=== PATIENT | female | born 1995 | race Caucasian/White ===

== ENCOUNTER 2018-10-18 16:22 | Emergency (ER) | payer SELFPAY ==
[2018-10-18 16:28] VITALS: BP 127/86; PULSE 125; RESP 16; TEMP 36.6; O2SAT 99
[2018-10-18 16:51] LABS: Bilirubin Small (Negative); Blood Moderate (Negative); Clarity Sl Cloudy; Glucose Negative (Negative); Ketones 80 mg/dL (Negative); Leukocyte Esterase Negative (Negative); Nitrite Negative (Negative); Specific Gravity >= 1.030 (1.005-1.025); Urobilinogen 0.2 EU/dL (Up TO 0.2); pH 5.5 (5-8)
[2018-10-18 16:59] LABS: Bacteria Moderate HPF (Negative); C & S Indicated? No/Sq. Contamination; Casts Negative LPF (Negative); Crystals Negative HPF (Negative); Epithelial Cells Moderate HPF (Negative); Mucus Trace (Negative); Other Cells Negative (Negative); WBC 0-2 HPF (0-5)
[2018-10-18] MEDS: Ketorolac 30 MG/ML VIAL IVP (17:08)
[2018-10-18] MEDS: Normal Saline 1,000 ML 1000 ML IV ×2 (17:08→18:08)
[2018-10-18] MEDS: Ondansetron 4 MG/2 ML VIAL IVP (17:09)
[2018-10-18 17:15] LABS: Lactate-non-spesis 1.1 mmol/L (0.6-1.4)
[2018-10-18 17:19] LABS: Abs Immature Grans 0.03 k/cumm (0.0-0.09); Absolute Basophil Count 0.02 k/cumm (0.0-0.2); Absolute Lymphocyte Count 1.52 k/cumm (1.2-3.4); Absolute Monocyte Count 0.75 k/cumm (0.11-0.7); Basophils % 0.1; Eosinophils % 0.1; HCT 36.4 % (36.0-46.0); HGB 11.8 g/dL (12.0-15.5); Immature Grans % 0.2; Lymphocytes % 10.1; Mean Corp. HGB Concentration 32.4 g/dL (32.0-36.0); Mean Corpuscular Hemoglobin 23.4 pg (27.0-33.0); Mean Corpuscular Volume 72.2 fL (80-95); Neutrophils % 84.5; Platelet Count 368 x1000/uL (130-400); RBC 5.04 m/cumm (4.00-5.20); RBC Distribution Width 15.6 % (11.7-14.6)
--- NOTE | 2018-10-18 17:34 | ED.GENADUL_ITS ---
Discharge Plan Disposition Patient Disposition: HOME Condition: Good Discharge Details Chief Complaint: Fever Clinical Impression: Gastroenteritis, Vomiting, Dehydration Primary Care Provider: Robert Mancia ED Provider: Son Lindsay Home Meds and New Rx's Prescriptions: New ondansetron HCl [Zofran] 4 mg tablet 4 mg PO TID PRN (Reason: nausea and vomiting) 5 Days Qty: 10 RF: 0 Discharge Instructions Instructions: Dehydration (ED), Gastroenteritis (ED) Additional Instructions: Please drink 8-12 cups of water per day, please take the Zofran as needed for nausea. If you notice any worsening of your symptoms, or any new symptoms such as vomiting, diarrhea, fever, chills, shortness of breath, chest pain, numbness, weakness, or fainting , please return immediately to the emergency department for reevaluation. Please follow up with your primary care provider as soon as possible for reassessment and reevaluation. As always, it was a pleasure participating in your medical care today. Referrals: Robert Mancia [Primary Care Provider] - Medical Decision Making This is a pleasant 23-year-old female who presents for evaluation of fever and other generalized symptoms. She has fever at home, right lower quadrant abdominal pain, sore throat, and vomiting with some diarrhea. She denies any recent antibiotic use or any foreign travel. Patient is tachycardic. She demonstrates notable right lower quadrant tenderness with voluntary guarding, and a positive left-sided Rovsing sign. This may be secondary to cramping from acute viral gastroenteritis, however appendicitis is certainly on the differential. The patient signs and symptoms do appear more clinically consistent with influenza, and we will test for this in spite of her previous vaccination. We will rehydrate the patient, and reassess. 7:33 PM The patient's laboratory workup has returned, she does demonstrate an elevated white count, however lactate is normal, she has no evidence of bandemia. Patient's potassium is slightly low at 3.3, however anion gap is normal, BUN creatinine ratio is normal. Urinalysis shows no evidence of significant urinary tract infection. CT scan was performed and demonstrates evidence of mesenteric adenitis, but no other significant acute abnormality. Patient's heart rate has returned to a normal level, she is afebrile. She has been able to tolerate p.o. very well here with no difficulty. Patient's abdominal discomfort is notably improved, and her nausea has resolved. I feel her signs and symptoms are clinically consistent with a viral enteritis. With no evidence of appendicitis, or other acute abdominal pathology I feel that no further workup is indicated for this especially in conjunction with her resolution of her symptoms. Her potassium has been corrected with IV potassium. The remainder of her laboratory workup is benign. Influenza was negative. test is negative. TSH is also normal as well as her lipase. With her clinical symptomatology consistent with viral gastroenteritis after being rehydrated, having a return of her normal vital signs, otherwise demonstrating the workup showing no significant acute process I feel that she can be safely discharged home with her excellent tolerance of p.o. Discussed red flags which to return, the importance of con tinued hydration, the patient understands. I have extensively reviewed the treatment plan and discharge instructions with the patient. I have addressed all patient concerns at this time. The patient was made aware of what symptoms to monitor for that would warrant a return to the emergency department. Discussed the plan with the patient, they demonstrate verbal understanding and agreement with our assessment and plan at this time. FINDINGS: Lower thorax: No acute findings. ABDOMEN: Liver: Normal. No mass. Gallbladder and bile ducts: Surgical clips in the gallbladder fossa consistent with cholecystectomy. Pancreas: Normal. No ductal dilation. Spleen: Normal. No splenomegaly. Adrenals: Normal. No mass. Kidneys and ureters: Normal. No hydronephrosis. Stomach and bowel: Normal. No obstruction. No mucosal thickening. Appendix: The appendix appears normal. PELVIS: Bladder: Unremarkable as visualized. Reproductive: Unremarkable as visualized. ABDOMEN and PELVIS: Intraperitoneal space: Mild right lower quadrant mesenteric adenitis. Bones/joints: No acute fracture. No dislocation. Soft tissues: The patient may be morbidly obese. Vasculature: Normal. No abdominal aortic aneurysm. Lymph nodes: Numerous right lower quadrant mesenteric lymph nodes consistent with mesenteric adenitis. IMPRESSION: 1. The patient may be morbidly obese. 2. The appendix appears normal. 3. Mild right lower quadrant mesenteric adenitis. Dictated and Authenticated by: Rohit Webb MD. HPI General Date/Time Provider Initiated Documentation: 10/18/18 16:26 . HPI Narrative: This is a 23-year-old female with no significant past medical history who presents today for evaluation of symptoms of illness. 2-3 days she has had chills, fever with a T-max of 103 yesterday, mild sore throat, 3-4 episodes of mild vomiting, occasional diarrhea, myalgias, and notable fatigue. 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 She denies any headache or neck pain. She is clearly coming to contact with multiple sick contacts. She has received her flu shot this year. She has been eating and drinking some, but has had a notably decreased appetite. She denies any modifying or relieving factors. Her fever has been responsive to ibuprofen at home. In addition to the aforementioned symptoms she does note some mild increase in urinary frequency. She also complains of mild right lower quadrant abdominal tenderness. She denies any significant radiation of the symptoms but does also admit to generalized abdominal crampiness. Patient denies any vaginal discharge, or cough. She denies any difficulty swallowing or dysphasia. She has no other complaints at this time. She denies any pertinent family history. She denies any IV or illicit drug use or tobacco use. Related Data Home Medications Medication Instructions Recorded Confirmed ondansetron HCl [Zofran] 4 mg PO TID PRN 5 Days #10 tab 10/18/18 Previous Rx's Medication Instructions Recorded ondansetron HCl [Zofran] 4 mg PO TID PRN 5 Days #10 tab 10/18/18 Allergies Allergy/AdvReac Type Severity Reaction Status Date / Time morphine Allergy Severe Anaphylaxsi Unverified 10/18/18 16:32 s General Stated Complaint: Fever PERCY: 3 Review of Systems Review of Systems All systems reviewed & are unremarkable except as noted in HPI and below PFSH Social History Smoking/Tobacco Use Status: Never Exam Narrative Exam Narrative: 1.Const: Well-nourished, Well-developed, appearing stated age 2.Eyes: PERRL, no conjunctival injection, and symmetrical lids. 3.ENT: Atraumatic external nose and ears. Moist MM. Neck: Symmetric, trachea midline, No thyromegaly. Patient demonstrates good movement of cervical neck. There is no nuchal rigidity, no nuchal tenderness. Patient is able to flex the neck without any difficulty or significant pain. Negative Kernig's and Brudzinski sign. No significant erythema in the posterior oropharynx. No evidence of tonsillar exudates. 4.CVS: +S1/S2, No murmurs or gallops. Peripheral pulses 2+ and equal in all extremities. Brisk capillary refill in all extremities. 5.RESP: Unlabored respiratory effort. Clear to auscultation bilaterally. No wheezes rales or rhonchi 6.GI: Soft, nondistended, mild to moderate right lower quadrant abdominal tenderness, positive Rovsing sign and left lower quadrant. Negative obturator and psoas sign. Negative heel strike test. No organomegaly. 7.MSK: Normocephalic/Atraumatic, Extremities w/o deformity or ttp No cyanosis or clubbing, Normal movement of all extremities 8.Skin: Warm, Dry. No rashes or lesions. 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 Sensation grossly intact, no focal neurologic deficits. 10.Psych: (AAO) x3. Appropriate mood and affect Course Vital Signs Temperature 36.6 C 10/18/18 16:28 Pulse 125 H 10/18/18 16:28 Respiratory Rate 16 10/18/18 16:28 Blood Pressure 127/86 10/18/18 16:28 Pulse Oximetry 99 10/18/18 16:28 Temperature 36.6 C 10/18/18 16:28 Temperature Source Skin 10/18/18 16:28 Pulse 125 H 10/18/18 16:28 Respiratory Rate 16 10/18/18 16:28 Respiratory Effort Non-Labored 10/18/18 16:31 Blood Pressure 127/86 10/18/18 16:28 Pulse Oximetry 99 10/18/18 16:28 Pain Level 9 10/18/18 17:08 Lab/Test Results Lab/Test Results: 10/18/18 17:10 Nasopharynx Influenza Types A,B Antigen - Pending 10/18/18 16:57 Blood Blood Culture - Pending 10/18/18 16:57 Blood Blood Culture - Pending 10/18/18 16:35 Tonsil - Not Specified Streptococcus Screen (ANISHA) - Pending Laboratory Tests Range/Units 10/18/18 10/18/18 10/18/18 16:35 16:58 17:02 Lactate (0.6-1.4) mmol/L 1.1 Urine Color (Yellow) Yellow Cancelled Urine Clarity Sl cloudy Cancelled Urine pH (5-8) 5.5 Cancelled Ur Specific Coy (1.005-1.025) >= 1.030 H Cancelled Urine Protein (Negative) mg/dL Negative Cancelled Urine Ketones (Negative) mg/dL 80 H Cancelled Urine Blood (Negative) Moderate H Cancelled Urine Nitrite (Negative) Negative Cancelled Urine Bilirubin (Negative) Small H Cancelled Urine Urobilinogen (Up TO 0.2) EU/dL 0.2 Cancelled Ur Leukocyte Esterase (Negative) Negative Cancelled Urine RBC (0-2) 5-10 H Urine WBC (0-5) HPF 0-2 Ur Epithelial Cells (Negative) HPF Moderate Urine Crystals (Negative) HPF Negative Urine Bacteria (Negative) HPF Moderate Urine Casts (Negative) LPF Negative Urine Mucus (Negative) Trace Urine Other (Negative) Negative Ur Culture Indicated? No/sq. contamination Urine Glucose (Negative) mg/dL Negative Cancelled POC- Test(urine) Negative POC Strep Test-SAM(Rapid) Start: 10/18/18 16:41 Freq: .Rapid Strep Test Status: Active Protocol: Document 10/18/18 16:45 SF (Rec: 10/18/18 16:45 SF [id number]) Strep test-SAM(Rapid)-POC POC-Strep test-SAM (Rapid) Negative POC-Strep test-SAM (Rapid) Negative
[2018-10-18 17:39] LABS: ALT 27 U/L (12-78); AST 16 U/L (15-37); Albumin 3.2 g/dL (3.4-5.0); Alkaline Phosphatase 89 U/L (46-116); Anion Gap 11.1 mmol/L (3-11); BUN 8 mg/dL (7-18); CO2 24.9 mmol/L (21.0-32.0); CREATININE 0.93 mg/dL (0.55-1.02); Calcium 8.9 mg/dL (8.5-10.1); Chloride 100 mmol/L (98-107); Glucose 83 mg/dL (70-100); Lipase 92 U/L (73-393); Potassium 3.3 mmol/L (3.5-5.1); Sodium 136 mmol/L (136-145); TSH (W/Ref FT4) 1.04 uIU/mL (0.358-3.74); Total Protein 8.3 g/dL (6.4-8.2)
[2018-10-18 17:42] LABS: Absolute Eosinophil Count 0.02 k/cumm (0.0-0.7); Absolute Neutrophil Count 12.68 k/cumm (1.2-6.7); Microcytosis 1+
--- NOTE | 2018-10-18 17:54 | DI.CT_ITS ---
SYMPTOM/DIAGNOSIS: RLQ TENDERNESS, R/O APPE ABDOMINAL, PELVIC CT: 10/18/18 CT examination of the abdomen and pelvis was performed with a bolus infusion of 100 cc Omnipaque 350. Images obtained through the lung bases were unremarkable. Liver, spleen and pancreas appear normal. Gallbladder has been surgically removed. No biliary dilatation seen. Adrenals and kidneys appear normal. No urinary tract calcification or obstruction. Abdominal aorta is of normal diameter and no major vascular abnormalities seen. Appendix appears normal. No evidence of diverticulitis or bowel obstruction. 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 No abdominal or pelvic adenopathy seen. Slight prominence of right lower quadrant mesenteric lymph nodes noted, nonspecific finding but findings could be associated with mesenteric adenitis. CONCLUSION: No evidence of acute intra-abdominal process.
[2018-10-18] MEDS: POTASSIUM CHLORIDE 20 MEQ/100 ML BAG 50 MEQ IVPB (17:59)
[2018-10-18] MEDS: Omnipaque 350 MG/ML 100 ML BTL IJ (17:59)
--- NOTE | 2018-10-18 18:23 | DI.VRAD_ITS ---
EXAM: CT Abdomen and Pelvis With Contrast EXAM DATE/TIME: 10/18/2018 4:59 PM CLINICAL HISTORY: 23 years old, female; Pain; Abdominal pain; Flank; Right lower quadrant (rlq); Patient HX: Rlq tenderness, R/O appendicitis. TECHNIQUE: Axial computed tomography images of the abdomen and pelvis with intravenous contrast. All CT scans at this facility use at least one of these dose optimization techniques: automated exposure control; mA and/or kV adjustment per patient size (includes targeted exams where dose is matched to clinical indication); or iterative reconstruction. Coronal and sagittal reformatted images were created and reviewed. CONTRAST: 100 ml of OMNI-PAQUE 350 administered intravenously. COMPARISON: No relevant prior studies available. FINDINGS: Lower thorax: No acute findings. ABDOMEN: Liver: Normal. No mass. Gallbladder and bile ducts: Surgical clips in the gallbladder fossa consistent with cholecystectomy. Pancreas: Normal. No ductal dilation. Spleen: Normal. No splenomegaly. Adrenals: Normal. No mass. Kidneys and ureters: Normal. No hydronephrosis. Stomach and bowel: Normal. No obstruction. No mucosal thickening. Appendix: The appendix appears normal. PELVIS: Bladder: Unremarkable as visualized. Reproductive: Unremarkable as visualized. ABDOMEN and PELVIS: Intraperitoneal space: Mild right lower quadrant mesenteric adenitis. Bones/joints: No acute fracture. No dislocation. Soft tissues: The patient may be morbidly obese. Vasculature: Normal. No abdominal aortic aneurysm. Lymph nodes: Numerous right lower quadrant mesenteric lymph nodes consistent with mesenteric adenitis. IMPRESSION: 1. The patient may be morbidly obese. 2. The appendix appears normal. 3. Mild right lower quadrant mesenteric adenitis. Dictated and Authenticated by: Rohit Webb MD. Ordering:CLAUDIA Cline MD
== END 2018-10-18 19:55 | disposition home or self-care (01) ==
PROVIDERS: Emergency Provider Student in an Organized Health Care Education/Training Program; PCP Family Medicine
DX: K52.9 Noninfective gastroenteritis and colitis, unspecified (principal); R11.2 Nausea with vomiting, unspecified; E86.0 Dehydration; R50.9 Fever, unspecified; E87.6 Hypokalemia
CPT/HCPCS: 36415; 80053; 81025; 83690; 87040; 87449; 87880; 96361; 96365; 96366; 96375; 99285; 74177; 81003; 81015; 83605; 84443; 85025; 87081; 99284; J1885; J2405; J3480; J3490

== ENCOUNTER 2019-09-17 15:49 | Emergency (ER) | payer SELFPAY ==
[2019-09-17 15:57] VITALS: BP 144/80; PULSE 132; RESP 20; TEMP 36.6; O2SAT 100
--- NOTE | 2019-09-17 16:07 | DI.CT_ITS ---
EXAM: CT ABDOMEN PELVIS W CLINICAL HISTORY: right lower abdomen pain TECHNIQUE: Imaging Protocol: Axial computed tomography images with coronal and sagittal reformatted images were created and reviewed CONTRAST MATERIAL: Intravenous: Omnipaque 350 Contrast volume:100 mL contrast route:IV - Oral: No COMPARISON: CT ABDOMEN PELVIS W from 10/18/2018 FINDINGS: ABDOMEN: Lung Bases: Normal where visualized. Liver: Normal density. No measurable mass. Gallbladder and biliary tract: Status post cholecystectomy. No biliary ductal dilatation. Pancreas: Normal density, no abnormal calcifications or inflammatory process. Spleen: Normal. Kidneys: Normal size, contour and axis. No radiodense stones or obstructive uropathy. No masses seen. Adrenal glands: No masses seen. Abdominal Aorta: Abdominal portion non-dilated. PELVIS: Bladder: Symmetric distention, no gross wall thickening. Bowel: No obstruction or bowel wall thickening. The appendix is normal in size without evidence of ad jacent mesenteric fat stranding or adjacent fluid collection. Peritoneal cavity: No ascites, collection or mesenteric inflammatory response. Bones: Within normal limits. Reproductive organs: Within normal limits. Lymph nodes: Unremarkable. Impression: No evidence of an acute abdomen. DATA REPOSITORY: All CT scans at this facility are submitted to the National Radiology Data Registry (NRDR) Dose Index Registry (DIR) with the [employer] (ACR). RADIATION OPTIMIZATION: All CT scans at this facility use at least one of these dose optimization te chniques: automated exposure control; mA and/or kV adjustment per patient size (includes targeted exa ms where dose is matched to clinical indication); or iterative reconstruction.
--- NOTE | 2019-09-17 16:08 | ED.GENADUL_ITS ---
Discharge Plan Disposition Patient Disposition: HOME Condition: Stable Discharge Details Chief Complaint: Nausea/Vomit/Diar Clinical Impression: Abdominal pain, Nausea & vomiting Primary Care Provider: Malathi Ryan ED Provider: Rohit Almaguer Home Meds and New Rx's Prescriptions: New ondansetron 4 mg tablet,disintegrating 4 mg PO Q8H PRN (Reason: nausea and vomiting) Qty: 20 RF: 0 Continued metformin 500 mg tablet extended release 24hr 500 mg PO BID Qty: 60 RF: 1 hydroxyzine HCl 50 mg tablet 25 - 50 mg PO BID PRN (Reason: acute anxiety) Qty: 20 RF: 0 sertraline 50 mg tablet 50 mg PO DAILY Qty: 30 RF: 0 albuterol sulfate 90 mcg/actuation HFA aerosol inhaler 2 inh IH Q6H PRN (Reason: shortness of breath or wheezing) Qty: 8.5 RF: 0 (DME) Aerochamber MV spacer See Dose Instructions .ROUTE .MEDSUPPLY Qty: 1 RF: 0 ondansetron HCl 4 mg tablet 4 mg PO Q8H PRN (Reason: nausea and vomiting) Qty: 30 RF: 0 Discharge Instructions Instructions: Acute Nausea and Vomiting (ED), Abdominal Pain (ED) Additional Instructions: if you are still having symptoms on Saturday follow up with your primary care provider if you feel more ill, have worsening pain or persistent vomit return to the emergency department Medical Decision Making 24 yo female with hx of pcos comes in with n/v and lower abdominal pain for 4 days. Denies recent travel or abx .Denies fevers and denies drug use other than occasional marijuana use. She has pain with palpation without guarding in the rlq otherwise soft nontender abodmen. Given her symptoms and location of pain will obtain labs and CT to eval for appendicitis among other pathology labs show mild leukocytosis and otherwise no emergent findings. CT also shows no acute findings. She no longer has pain and no tenderness on abd exam. She is tolerating Po so feel she can be d/c'd and have her f/u with pcp and return precautions given Differential Diagnosis Differential Diagnosis: appendicitis, gastroenteritis, diverticulitis Imaging Data Radiologic Study: Attestation: I personally reviewed and interpreted this imaging study as follows: Imaging: CT Scan Radiologist's impression: no acute findings Lab Data Lab results reviewed: Yes I reviewed the patient's lab results. HPI General Mode of arrival: ambulatory . Date/Time Provider Initiated Documentation: 09/17/19 16:01 . Limitations to Documentation: no limitations . Information obtained by: patient . History of Present Illness 24 year old F presents to the emergency department with the chief complaint of abdominal pain, described as moderate, and it has been constant. No relieving factors improve symptom(s), No exacerbating factors reported . Patient did receive the following treatments prior to arrival, none Related Data Home Medications Medication Instructions Recorded Confirmed albuterol sulfate 90 mcg/actuation 2 inh IH Q6H PRN #8.5 gm 02/10/19 09/17/19 aerosol inhaler inhalational spacing device #1 each 02/10/19 08/27/19 ondansetron HCl 4 mg tablet 4 mg PO Q8H PRN #30 tab 06/24/19 09/17/19 hydroxyzine HCl 50 mg tablet 25 - 50 mg PO BID PRN #20 tab 08/21/19 09/17/19 sertraline 50 mg tablet 50 mg PO DAILY #30 tab 08/21/19 09/17/19 metformin 500 mg tablet,extended 500 mg PO BID #60 tab 08/27/19 09/17/19 release 24hr ondansetron 4 mg PO Q8H PRN #20 tab 09/17/19 Previous Rx's Medication Instructions Recorded albuterol sulfate 90 mcg/actuation 2 inh IH Q6H PRN #8.5 gm 02/10/19 aerosol inhaler inhalational spacing device #1 each 02/10/19 ondansetron HCl 4 mg tablet 4 mg PO Q8H PRN #30 tab 06/24/19 hydroxyzine HCl 50 mg tablet 25 - 50 mg PO BID PRN #20 tab 08/21/19 sertraline 50 mg tablet 50 mg PO DAILY #30 tab 08/21/19 metformin 500 mg tablet,extended 500 mg PO BID #60 tab 08/27/19 release 24hr ondansetron 4 mg PO Q8H PRN #20 tab 09/17/19 Allergies Allergy/AdvReac Type Severity Reaction Status Date / Time morphine Allergy Severe Anaphylaxsi Verified 09/17/19 16:01 s Bee Allergy Allergy Swelling Uncoded 09/17/19 16:01 General Stated Complaint: Nausea/Vomit/Diar PERCY: 3 Review of Systems All systems reviewed & are unremarkable except as noted in HPI and below Constitutional Constitutional: Denies chills, Denies fever(s) and Denies weakness Cardiovascular Cardiovascular: Denies chest pain and Denies dyspnea Respiratory Respiratory: Denies dyspnea Musculoskeletal Musculoskeletal: Denies joint swelling Neurologic Neurologic: Denies weakness Psychiatric Psychiatric: Denies depression PFSH Social History Smoking/Tobacco Use Status: Never Alcohol Intake: former Drug use: Never Adopted: No Foster care: No Household members: significant other Housing: apartment Communication Needs: None Education Level: college Details: 1 yr Do you need help understanding health information?: Never 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 [employer] Sexually active: Yes Do you think of yourself as: straight/heterosexual What is your relationship status?: living with partner Panel score (0-1 are the most socially isolated patients): 1 Duration: 45-60 minutes/day Frequency: 3-4 times per week Special jonathon needs: No Seatbelt use: never Helmet use: No Working smoke detector in home: Yes Carbon monox detector in home: Yes Do you feel safe in your relationship?: Yes Female Reproductive History Menstrual control method: none History History 0 Para 0 Hx # Term Pregnancies Multiple births Hx # Pregnancies Ectopic pregnancies AB induced Hx Number of Living Children AB spontaneous Exam Const General: no acute distress Orientation: alert HENMT Head: normal to inspection Ears: external ears normal General nose exam: external nose normal Mouth: moist mucous membranes Eyes General: appearance normal, both eyes and all related structures Neck Neck: normal visual inspection Resp Effort & Inspection: normal respiratory effort and able to speak in complete sentences Cardio Rate: regular rate GI Palpation: soft Skin General skin exam: no rashes or lesions noted Neuro General: alert and oriented x3 Extrem General: normal to inspection Psych Mental Status: mental status grossly normal Course Vital Signs Vital signs: Vital Signs Temperature 36.6 C 09/17/19 15:57 Pulse 132 H 09/17/19 15:57 Respiratory Rate 20 09/17/19 15:57 Blood Pressure 144/80 H 09/17/19 15:57 Pulse Oximetry 100 09/17/19 15:57 Temperature 36.6 C 09/17/19 15:57 Temperature Source Skin 09/17/19 15:57 Pulse 132 H 09/17/19 15:57 Respiratory Rate 20 09/17/19 15:57 Respiratory Effort Non-Labored 09/17/19 15:57 Blood Pressure 144/80 H 09/17/19 15:57 Blood Pressure Position Sitting 09/17/19 15:57 Pulse Oximetry 100 09/17/19 15:57 Oxygen Delivery Method Room Air 09/17/19 15:57 Oxygen Flow Rate 0 09/17/19 15:57 Pain Level 9 09/17/19 15:57
[2019-09-17] MEDS: Ketorolac 15 MG/ML VIAL IVP (16:28)
[2019-09-17] MEDS: Ondansetron 4 MG/2 ML VIAL IVP (16:28)
[2019-09-17] MEDS: Normal Saline 1,000 ML 1000 ML IV (16:28)
[2019-09-17 16:42] LABS: Bilirubin Negative (Negative); Blood Negative (Negative); Clarity Clear (Clear); Glucose Negative (Negative); Ketones 15 mg/dL (Negative); Leukocyte Esterase Negative (Negative); Nitrite Negative (Negative); Specific Gravity >= 1.030 (1.005-1.025); Urobilinogen 0.2 EU/dL (Up TO 0.2); pH 5.5 (5-8)
[2019-09-17 16:44] LABS: Abs Immature Grans 0.03 k/cumm (0.0-0.09); Absolute Basophil Count 0.03 k/cumm (0.0-0.2); Absolute Neutrophil Count 12.69 k/cumm (1.2-6.7); Basophils % 0.2; Eosinophils % 0.5; HCT 38.3 % (36.0-46.0); Immature Grans % 0.2; Lymphocytes % 11.7; Mean Corp. HGB Concentration 31.3 g/dL (32.0-36.0); Mean Corpuscular Hemoglobin 22.4 pg (27.0-33.0); Mean Corpuscular Volume 71.5 fL (80-95); Mean Platelet Volume 9.3 fL (8.0-11.0); Monocytes % 5.5; Neutrophils % 81.9; Platelet Count 500 x1000/uL (130-400); RBC 5.36 m/cumm (4.00-5.20); RBC Distribution Width 16.5 % (11.7-14.6)
[2019-09-17 16:45] LABS: Absolute Eosinophil Count 0.08 k/cumm (0.0-0.7); Absolute Lymphocyte Count 1.81 k/cumm (1.2-3.4); Absolute Monocyte Count 0.85 k/cumm (0.11-0.7)
[2019-09-17 16:58] LABS: ALT 24 U/L (14-59); AST 14 U/L (15-37); Albumin 3.6 g/dL (3.4-5.0); Alkaline Phosphatase 89 U/L (46-116); Anion Gap 10.6 mmol/L (3-11); BUN 7 mg/dL (7-18); Bilirubin, Total 0.8 mg/dL (0.2-1.0); CO2 25.4 mmol/L (21.0-32.0); CREATININE 0.91 mg/dL (0.55-1.02); Chloride 100 mmol/L (98-107); Glucose 88 mg/dL (74-106); Lipase 82 U/L (73-393); Magnesium 1.6 mg/dL (1.8-2.4); Potassium 3.2 mmol/L (3.5-5.1); Sodium 136 mmol/L (136-145); Total Protein 8.8 g/dL (6.4-8.2)
[2019-09-17 17:19] LABS: Anisocytosis 1+; Hypochromasia 1+; Microcytosis 2+; Polychromasia Present
[2019-09-17] MEDS: Omnipaque 350 MG/ML 100 ML BTL IJ (17:25)
[2019-09-17 17:27] VITALS: BP 119/67; PULSE 71; RESP 16; O2SAT 98
--- NOTE | 2019-09-17 17:27 | DI.VRAD_ITS ---
PROCEDURE INFORMATION: Exam: CT Abdomen And Pelvis With Contrast Exam date and time: 09/17/2019 4:47 PM Age: 24 years old Clinical history: Abdominal pain TECHNIQUE: Imaging protocol: Computed tomography of the abdomen and pelvis with intravenous contrast. COMPARISON: CT ABDOMEN PELVIS W 10/18/2018 5:35 PM FINDINGS: Liver: Normal. No mass. Gallbladder and bile ducts: Status post cholecystectomy. Pancreas: Normal. No ductal dilation. Spleen: Normal. No splenomegaly. Adrenals: Normal. No mass. Kidneys and ureters: Normal. No hydronephrosis. Stomach and bowel: Unremarkable. No obstruction. No mucosal thickening. Appendix: The appendix is retrocecal but shows no acute abnormality. Intraperitoneal space: Unremarkable. No free air. No significant fluid collection. Vasculature: Unremarkable. No abdominal aortic aneurysm. Lymph nodes: Unremarkable. No enlarged lymph nodes. Bladder: Unremarkable as visualized. Reproductive: The left ovary is moderately larger than the right. Both ovaries contain multiple small follicles. Bones/joints: Unremarkable. No acute fracture. Soft tissues: Unremarkable. IMPRESSION: 1. No etiology of the patient's pain is demonstrated. 2. Status post cholecystectomy Dictated and Authenticated by: Rohit Woods MD. Ordering:JESUS Bee MD
[2019-09-17 17:54] VITALS: BP 133/76; PULSE 105; RESP 14; TEMP 37; O2SAT 100
--- NOTE | 2019-09-18 09:07 | W.ED.FU ---
cbc reviewed by pathologist and possible thallessemia. Reached out to pt's pcp office to make them aware and will f/u with her
== END 2019-09-17 17:53 | disposition home or self-care (01) ==
PROVIDERS: Emergency Provider Emergency Medicine; PCP Nurse Practitioner Adult Health
DX: R11.2 Nausea with vomiting, unspecified (principal); R10.31 Right lower quadrant pain; D72.829 Elevated white blood cell count, unspecified
CPT/HCPCS: 80053; 81025; 83690; 96361; 96374; 96375; 99285; 74177; 81003; 83735; 85025; 99284; J1885; J2405; J3490

== ENCOUNTER 2020-02-04 08:37 | Outpatient (CLI) | payer OTHER, SELFPAY ==
[2020-02-08 09:47] LABS: COVID-19 RT-PCR Result Negative (Negative)
== END 2020-02-04 08:57 ==
PROVIDERS: PCP Nurse Practitioner Adult Health; Visit Provider Nurse Practitioner Adult Health
DX: R50.9 Fever, unspecified (principal); R53.81 Other malaise
CPT/HCPCS: U0003

== ENCOUNTER 2020-07-06 12:27 | Emergency (ER) | payer OTHER, SELFPAY ==
[2020-07-06] VITALS (12 sets, daily range): BP systolic 112–151; BP diastolic 63–106; PULSE 55–76; RESP 13–28; TEMP 36.1–37; O2SAT 98–100
[2020-07-06] MEDS: Normal Saline 1,000 ML 1000 ML IV ×2 (12:45→13:45)
[2020-07-06] MEDS: Normal Saline Flush 10 ML SYR IVP (12:45)
--- NOTE | 2020-07-06 12:45 | RT.EKG_ITS ---
APPROVED REPORT Exam: Resting ECG Patient Location: E HR:63 bpm ECG Measurements Heart Rate 63 AXIS VA 161 P -2 QRSd 87 QRS 42 QT 401 T 20 QTc 410 Conclusion Sinus rhythm...normal P axis, V-rate 60- 99, no st elevation, J pt elev I, AvL
[2020-07-06 12:48] LABS: Abs Immature Grans 0.04 10^3/uL (0.0-0.06); Absolute Basophil Count 0.04 10^3/uL (0.0-0.2); Absolute Eosinophil Count 0.04 10^3/uL (0.0-0.7); Absolute Lymphocyte Count 2.89 10^3/uL (1.2-3.4); Absolute Monocyte Count 0.45 10^3/uL (0.1-0.8); Absolute Neutrophil Count 7.33 10^3/uL (1.2-6.7); Basophils % 0.4; Eosinophils % 0.4; HCT 40.9 % (36.0-46.0); HGB 12.8 g/dL (11.2-15.7); Immature Grans % 0.4; Lymphocytes % 26.8; MCH 22.5 pg (27.0-33.0); MCHC 31.3 % (32.0-36.0); MCV 71.9 fL (80-95); MPV 9.3 fL (8.0-11.0); Monocytes % 4.2; Neutrophils % 67.8; Nucleated RBC 0 %; Platelet Count 544 10^3/uL (130-400); RBC 5.69 10^6/uL (3.93-5.22); RDW 15.1 % (11.7-14.6); RDW-SD 38.5 fL; WBC 10.79 10^3/uL (4.4-10.8)
[2020-07-06 12:49] LABS: Bilirubin Negative (Negative); Blood Trace-intact (Negative); Clarity Clear (Clear); Glucose Negative (Negative); Ketones 15 mg/dL (Negative); Leukocyte Esterase Negative (Negative); Nitrite Negative (Negative); Specific Gravity >= 1.030 (1.005-1.025); Urobilinogen 0.2 EU/dL (Up TO 0.2)
--- NOTE | 2020-07-06 12:54 | ED.GENADUL_ITS ---
Discharge Plan Disposition Patient Disposition: HOME Condition: Improving Discharge Details Chief Complaint: Abd Prob Clinical Impression: Gastritis, Headache Primary Care Provider: Malathi Diaz ED Provider: José Stoddard Home Meds and New Rx's Prescriptions: New famotidine 20 mg tablet 20 mg PO BID 14 Days Qty: 28 RF: 0 Continued ondansetron 4 mg tablet,disintegrating 4 mg PO Q8H PRN (Reason: nausea and vomiting) Qty: 20 RF: 0 naproxen 500 mg tablet 500 mg PO BID PRN (Reason: pain) Qty: 30 RF: 0 clindamycin phosphate 1 % solution 1 applic TP BID PRN (Reason: HS) Qty: 60 RF: 1 sertraline 50 mg tablet 50 mg PO DAILY Qty: 30 RF: 1 albuterol sulfate 90 mcg/actuation HFA aerosol inhaler 2 inh IH Q6H PRN (Reason: shortness of breath or wheezing) Qty: 8.5 RF: 0 (DME) Aerochamber MV spacer See Dose Instructions .ROUTE .MEDSUPPLY Qty: 1 RF: 0 Discharge Instructions Instructions: Gastritis (ED) Additional Instructions: Please take famotidine as prescribed twice daily for 2 weeks time. Please make an appointment to follow-up with Malathi Diaz in clinic in 2 weeks time. Avoid fatty, fried, spicy or acidic/tomato-based foods. Rest today. May continue your regularly prescribed medications including Zofran as needed. Return to the ER if you develop a fever, persistent vomiting, or any other acute concerns. Medical Decision Making This is a 25-year-old female presents from her primary care physician's office. She was initially evaluated for 5 days of epigastric pain associated intermittent episodes of vomiting. She denied fever or chills. No known sick contacts or travel. She has had a cholecystectomy. She arrives to the ER mildly anxious, afebrile, with an exam that reveals epigastric tenderness without significant rebound. Differential diagnosis includes gastritis, pancreatitis, dehydration or electrolyte abnormality. She w ill also note some intermittent headaches that feel like migraine but no history of same. Patient given GI cocktail and antiemetic, fluid bolus. She is referred for laboratory testing, CT scan of the head and urinalysis. UA reveals dehydration with elevated specific gravity. Labs: White blood cell count of 10, hematocrit 40, platelets 544. Sodium 138, potassium 3.6, chloride 102, bicarb 21, BUN 12, creatinine 1.0. LFTs unremarkable, troponin negative, lipase 68. CT scan of the head without acute intracranial findings. Patient's nausea improved following administration of the GI cocktail as well as Protonix. She will endorsed significant stress in her life and I do feel that today is most consistent with stress induced gastritis. She also complained of more study frontal headache and was given acetaminophen and Phenergan; she was able to rest and then awoke with significant reduction of headache. She is stable and appropriate outpatient management. I will place her on a course of famotidine for 2 weeks. HPI General Mode of arrival: ambulatory . Date/Time Provider Initiated Documentation: 07/06/20 12:28 . Limitations to Documentation: no limitations . Information obtained by: patient . History of Present Illness 25 year old F presents to the emergency department with the chief complaint of Epigastric pain for 5 days, described as moderate, Quality is described as dull and constant, and is localized to the abdomen. Patient reports no radiation. Patient started experiencing this hour(s) and it has been constant. Rest improves symptom(s), Eating worsens symptoms . Patient notes nausea/vomiting; denies fever/chills. Patient did receive the following treatments prior to arrival, none Related Data Home Medications Medication Instructions Recorded Confirmed albuterol sulfate 90 mcg/actuation 2 inh IH Q6H PRN #8.5 gm 02/10/19 07/06/20 aerosol inhaler inhalational spacing device #1 each 02/10/19 07/06/20 ondansetron 4 mg disintegrating 4 mg PO Q8H PRN #20 tab 02/03/20 07/06/20 tablet clindamycin phosphate 1 % topical 1 applic TP BID PRN #60 ml 04/27/20 07/06/20 solution naproxen 500 mg tablet 500 mg PO BID PRN #30 tab 04/27/20 07/06/20 famotidine 20 mg PO BID 14 Days #28 tab 07/06/20 sertraline 50 mg tablet 50 mg PO DAILY #30 tab 07/06/20 07/06/20 Previous Rx's Medication Instructions Recorded albuterol sulfate 90 mcg/actuation 2 inh IH Q6H PRN #8.5 gm 02/10/19 aerosol inhaler inhalational spacing device #1 each 02/10/19 ondansetron 4 mg disintegrating 4 mg PO Q8H PRN #20 tab 02/03/20 tablet clindamycin phosphate 1 % topical 1 applic TP BID PRN #60 ml 04/27/20 solution naproxen 500 mg tablet 500 mg PO BID PRN #30 tab 04/27/20 famotidine 20 mg PO BID 14 Days #28 tab 07/06/20 sertraline 50 mg tablet 50 mg PO DAILY #30 tab 07/06/20 Allergies Allergy/AdvReac Type Severity Reaction Status Date / Time morphine Allergy Severe Anaphylaxsi Verified 07/06/20 12:37 s Bee Allergy Allergy Swelling Uncoded 07/06/20 12:37 General Stated Complaint: Abd Prob PERCY: 3 Review of Systems Narrative: Some improvement with marijuana. Denies heavy use. No bloating. Positive flatus and feels constipated. Mild headache intermittently. 8 systems reviewed and otherwise negative [facility] Medical History Anxiety (Chronic) Depression (Chronic) h/o Wellbutrin use, h/o prozac use; no bipolar Exercise-induced asthma (Chronic) Family history of early CAD (Chronic) Father H/O fracture of wrist (Resolved) Right, colles fracture at 15yo History of hidradenitis suppurativa (Resolved) B/L; Dr. Garfield Wilson Surgeon; avoids shaving PCOS (polycystic ovarian syndrome) (Chronic) Dx'ed [facility] 01/2019 Metformin started Surgical History H/O oral surgery (Inactive) Hx of cholecystectomy (Resolved ~08/2014) ~2013 Family History Father Heart attack 37yo High cholesterol Arthritis b/l hip replacement in early 30s Mother Hypertension Anxiety Depression Diabetes Irritable bowel syndrome Paternal Grandfather High cholesterol Maternal Grandfather Diabetes Maternal Aunt Breast cancer 2 great aunts Crohn's disease Brother Aortic stenosis 17yo Social History Smoking/Tobacco Use Status: Never Alcohol Intake: former Drug use: Never Adopted: No Foster care: No Household members: significant other Housing: apartment Communication Needs: None Education Level: college Details: 1 yr Do you need help understanding health information?: Never 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[employer] Sexually active: Yes Do you think of yourself as: straight/heterosexual What is your relationship status?: living with partner Panel score (0-1 are the most socially isolated patients): 1 Duration: 45-60 minutes/day Frequency: 3-4 times per week Special jonathon needs: No Seatbelt use: never Helmet use: No Working smoke detector in home: Yes Carbon monox detector in home: Yes Do you feel safe at home: Yes Do you feel safe in your relationship?: Yes Female Reproductive History Menstrual control method: none History History 0 Para 0 Hx # Term Pregnancies Multiple births Hx # Pregnancies Ectopic pregnancies AB induced Hx Number of Living Children AB spontaneous Exam Narrative Exam Narrative: GEN: awake, alert, oriented 3. Pleasant, well groomed, interactive. HEAD: Normocephalic, atraumatic ENT: Mucous membranes moist, External ear exam unremarkable EYES: PERRL, EOMI NECK: Full ROM, no JOELLEN, no menigismus CHEST/RESP: Nontender, clear to auscultation bilateral, no wheeze/rhonchi/rales CARDIOVASCULAR: RRR, no murmur, rub pepe. 2+ Rad pulse bilateral ABDOMEN: Soft, epigastric tenderness without rebound or guarding, no mass. +Bowel sounds EXT: Full ROM, no edema, no rash Neuro: Grossly normal neurologic exam, conversant, interactive. Psych: Speech fluent, thoughts congruent, affect anxious Course Vital Signs Vital signs: Vital Signs Temperature 36.7 C 07/06/20 12:30 Pulse 76 07/06/20 12:30 Respiratory Rate 28 H 07/06/20 12:30 Blood Pressure 141/77 H 07/06/20 12:30 Pulse Oximetry 99 07/06/20 12:30 Temperature 36.7 C 07/06/20 12:30 Temperature Source Temporal Artery Scan 07/06/20 12:30 Pulse 76 07/06/20 12:30 Respiratory Rate 28 H 07/06/20 12:30 Respiratory Effort 07/06/20 12:35 Blood Pressure 141/77 H 07/06/20 12:30 Blood Pressure Position Sitting 07/06/20 12:30 Pulse Oximetry 99 07/06/20 12:30 Oxygen Delivery Method Room Air 07/06/20 12:30 Oxygen Flow Rate 0 07/06/20 12:30 Pain Level 8 07/06/20 12:30 Lab/Test Results Lab/Test Results: Laboratory Tests Range/Units 07/06/20 12:45 Urine Color (Yellow) Yellow Urine Clarity (Clear) Clear Urine pH (5-8) 6.0 Ur Specific [place] (1.005-1.025) >= 1.030 H Urine Protein (Negative) mg/dL Negative Urine Ketones (Negative) mg/dL 15 H Urine Blood (Negative) Trace-intact H Urine Nitrite (Negative) Negative Urine Bilirubin (Negative) Negative Urine Urobilinogen (Up TO 0.2) EU/dL 0.2 Ur Leukocyte Esterase (Negative) Negative Urine Glucose (Negative) mg/dL Negative POC- Test(urine) Negative
[2020-07-06 12:56] LABS: Lipase 68 U/L (73-393); Magnesium 1.8 mg/dL (1.8-2.4)
[2020-07-06 13:00] LABS: RBC 0-2 HPF (0-2)
[2020-07-06] MEDS: Ondansetron 4 MG/2 ML VIAL IVP (13:00)
[2020-07-06 13:01] LABS: C & S Indicated? No/Sq. Contamination; Epithelial Cells Many HPF (Negative); Mucus Moderate (Negative)
[2020-07-06 13:02] LABS: ALT 28 U/L (14-59); AST 18 U/L (15-37); Albumin 3.8 g/dL (3.4-5.0); Alkaline Phosphatase 86 U/L (46-116); Anion Gap 14.2 mmol/L (3-11); BUN 12 mg/dL (7-18); Bilirubin, Total 0.7 mg/dL (0.2-1.0); CO2 21.8 mmol/L (21.0-32.0); Calcium 9.8 mg/dL (8.5-10.1); Chloride 102 mmol/L (98-107); Glucose 96 mg/dL (74-106); Potassium 3.6 mmol/L (3.5-5.1); Sodium 138 mmol/L (136-145); Total Protein 8.5 g/dL (6.4-8.2)
--- NOTE | 2020-07-06 13:15 | DI.CT_ITS ---
EXAM: CT HEAD WO CLINICAL HISTORY: intermittent heache, nausea. TECHNIQUE: Imaging Protocol: Axial computed tomography images with coronal and sagittal reformatted images were created and reviewed COMPARISON: No exams were available for comparison FINDINGS: Ventricles and Extra axial spaces: Normal in size and morphology for the patient's age. Hemorrhage: None. Cerebral parenchyma: Normal. Midline shift: None. Brainstem/Cerebellum: Normal. Calvarium: Normal. Visualized Paranasal sinuses/Mastoids: Clear. Soft Tissues: Unremarkable. IMPRESSION: No acute intracranial process. RADIATION DOSE DELIVERED: Total DLP DATA REPOSITORY: All CT scans at this facility are submitted to the National Radiology Data Registry (NRDR) Dose Index Registry (DIR) with the [employer] (ACR). RADIATION OPTIMIZATION: All CT scans at this facility use at least one of these dose optimization te chniques: automated exposure control; mA and/or kV adjustment per patient size (includes targeted exa ms where dose is matched to clinical indication); or iterative reconstruction.
[2020-07-06 13:17] LABS: Anisocytosis 1+; Diff Comment RBC Morph Reviewed; Microcytosis 2+; Polychromasia Present; Troponin I < 0.05 ng/mL (<0.06)
[2020-07-06 13:18] LABS: Poikilocytes 1+
[2020-07-06] MEDS: Pantoprazole 40 MG VIAL IVP (13:45)
[2020-07-06] MEDS: ACETAMINOPHEN 1,000 MG/100 ML BTL 400 MG IVPB (14:49)
== END 2020-07-06 17:35 | disposition home or self-care (01) ==
PROVIDERS: Emergency Provider Emergency Medicine; PCP Nurse Practitioner Adult Health
DX: K29.60 Other gastritis without bleeding (principal); R51 Headache; E86.0 Dehydration
CPT/HCPCS: 80053; 81025; 83690; 93005; 96361; 96365; 96375; 99284; 70450; 81003; 81015; 83735; 84484; 85025; 93010; J0131; J2405

== ENCOUNTER → 2020-10-27 19:52 | Outpatient (REF) | payer SELFPAY ==
[2020-10-27 17:59] LABS: Abs Immature Grans 0.01 10^3/uL (0.0-0.06); Absolute Basophil Count 0.03 10^3/uL (0.0-0.2); Absolute Lymphocyte Count 2.39 10^3/uL (1.2-3.4); Absolute Monocyte Count 0.54 10^3/uL (0.1-0.8); Absolute Neutrophil Count 5.36 10^3/uL (1.2-6.7); Basophils % 0.4; Eosinophils % 1.2; HGB 11.4 g/dL (11.2-15.7); Immature Grans % 0.1; Lymphocytes % 28.4; MCH 22.4 pg (27.0-33.0); MCV 74.7 fL (80-95); MPV 9.5 fL (8.0-11.0); Monocytes % 6.4; Neutrophils % 63.5; Nucleated RBC 0 %; Platelet Count 495 10^3/uL (130-400); RBC 5.09 10^6/uL (3.93-5.22); RDW-SD 40.4 fL; WBC 8.43 10^3/uL (4.4-10.8)
[2020-10-27 18:19] LABS: ALT 26 U/L (14-59); AST 17 U/L (15-37); Albumin 3.6 g/dL (3.4-5.0); Alkaline Phosphatase 90 U/L (46-116); Amylase 20 U/L (25-115); Anion Gap 9.7 mmol/L (3-11); BUN 10 mg/dL (7-18); Bilirubin, Total 0.5 mg/dL (0.2-1.0); C-Reactive Protein 4.67 mg/dL (0.0-0.3); CO2 26.3 mmol/L (21.0-32.0); CREATININE 0.93 mg/dL (0.55-1.02); Calcium 9.1 mg/dL (8.5-10.1); Chloride 105 mmol/L (98-107); Glucose 85 mg/dL (74-106); Lipase 81 U/L (73-393); Potassium 3.9 mmol/L (3.5-5.1); Sodium 141 mmol/L (136-145); TSH (W/Ref FT4) 0.99 uIU/mL (0.36-3.74); Total Protein 7.4 g/dL (6.4-8.2)
[2020-10-27 19:22] LABS: ESR 18 mm/hr (0-20)
[2020-10-27 19:25] LABS: Bilirubin Negative (Negative); Blood Moderate (Negative); Clarity Turbid (Clear); Glucose Negative (Negative); Ketones Trace mg/dL (Negative); Leukocyte Esterase Negative (Negative); Nitrite Negative (Negative); Specific Gravity >= 1.030 (1.005-1.025); Urobilinogen 0.2 EU/dL (Up TO 0.2)
[2020-10-27 19:33] LABS: C & S Indicated? No; Crystals Many Amorphous HPF (Negative)
== END ==
LOC: NCHCN 19:52
PROVIDERS: Visit Provider Nurse Practitioner Family
DX: K92.0 Hematemesis (principal); K92.1 Melena; R10.84 Generalized abdominal pain
CPT/HCPCS: 80053; 83690; 85652; 81003; 81015; 82150; 84443; 85025; 86140

== ENCOUNTER 2020-11-18 01:37 | Outpatient (CLI) | payer OTHER, SELFPAY ==
[2020-11-20 10:30] LABS: COVID-19 RT-PCR Result NEGATIVE (Negative)
== END 2020-11-18 01:57 ==
PROVIDERS: Surgery; PCP Nurse Practitioner Family; Visit Provider Surgery
DX: Z11.52 Encounter for screening for COVID-19 (principal); Z01.818 Encounter for other preprocedural examination
CPT/HCPCS: U0003

== ENCOUNTER 2020-11-18 01:38 | Outpatient (CLI) | payer OTHER, SELFPAY ==
[2020-11-21 13:25] LABS: IgA 235 mg/dL (85-499); Interpretation (See Note); Tissue Transglutaminase IgA <1.2 U/mL (<4.0)
== END 2020-11-18 01:58 ==
PROVIDERS: PCP Nurse Practitioner Family; Visit Provider Surgery
DX: R11.2 Nausea with vomiting, unspecified (principal); R19.7 Diarrhea, unspecified
CPT/HCPCS: 36415; 82784; 83516; 82175; 82300; 83655; 83825

== ENCOUNTER 2020-11-21 09:11 | Day surgery (SDC) | payer OTHER, SELFPAY ==
--- NOTE | 2020-11-21 07:17 | W.PM.ENDDOP ---
Date of service: 11/21/20 Time of Service: 10:42 Endoscopy Report DATE OF PROCEDURE: 11/21/20 PRE-OP DIAGNOSIS: Nausea and Vomiting PROCEDURE: 1. EGD with biopsies 2. Colonoscopy with biopsies SURGEON: France Zendejas ANESTHESIA: other (General/ASA 2/Stacey Houston, YOSSI) ESTIMATED BLOOD LOSS: 3 PATHOLOGY: other (duodenum bx, gastric bx, Ge junction bx, terminal ileum bx, randome colon bx) COMPLICATIONS: None DISPOSITION: same day INDICATIONS: Ms. Mcclendon is a 25-year-old female who has been having GI symptoms which started in November but then worsened in February and March. She has daily nausea with intermittent vomiting. She has to take Zofran almost every morning. She can have up to 10 bowel movements a day when her diarrhea is as a's worst. She has tried a gluten-free diet for 2 weeks which did not help. She tried removing lactose for a couple of weeks which did not help. She did see Dr. Mckay in [place] but because she has [employer] insurance it would not cover a colonoscopy or upper endoscopy in [place]. Dr. Mckay recommended ordering some labs. She has had some of those done. She has not had any of the stool studies done yet. Her TSH, and CBC were essentially normal except for a slightly elevated platelet count. Her CMP was normal. She did have an increased CRP in September of more than 4. We discussed the differential for nausea vomiting diarrhea and abdominal pain. This could be due to peptic ulcer disease, gastritis, hyperemesis cannabis syndrome. Her diarrhea could be infectious versus malabsorptive or due to inflammatory bowel disease. Recommendations: 1. Will order stool cultures for ova and parasite, Giardia, and lactoferrin. 2. We will order a celiac disease panel as well as a heavy metal blood screen. 3. We will schedule for an upper endoscopy and colonoscopy. The colonoscopy procedure as well as the EGD procedure were both explained to the patient. We also discussed Covid testing and quarantine requirements. 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 At this point she has no vacation days left. I did discuss the case with anesthesia as well as Peter in the OR. We will get a Covid test at 1:00 the Saturday prior to her procedure. That way hopefully she will lose as much time from work. If her test result is not back by Saturday we will go ahead and do the colonoscopy and upper endoscopy with the appropriate PPE. The case is urgent due to her weight loss and length of her symptoms. Risks, benefits and complications have been reviewed. Complications include but are not limited to bleeding, pain, perforation, sore throat, aspiration, and adverse reaction to the medications. Questions were entertained and answered to their satisfaction and they wished to proceed. No guarantees were given or implied. Risks, benefits and complications have been reviewed. Complications include but are not limited to bleeding, pain, perforation, missed small lesion/polyp, sore throat, aspiration and adverse reaction to the medications. Questions were entertained and answered to their satisfaction and they wished to proceed. No guarantees were given or implied. COVID-19 testing explained to the patient. Reason for test reviewed. Quarantine per state requirements reviewed with patient. Patient understands and agrees to testing. PREP: Miralax/Dulcolax PROCEDURE START TIME: 10:42 PROCEDURE END TIME: 11:19 COLONOSCOPY RETRACTION TIME: 20 minutes FINDINGS: Mild inflammation of the esophagus and stomach. Normal large bowel PROCEDURE DESCRIPTION: After informed consent was obtained the patient was take to the procedure room and placed in a supine position. Monitors were applied and a time out was done. The patients name, date of , procedure type, allergies to medications and metal in their body was reviewed. A bite block was placed and the patient was sedated. Once sedated and comfortable the gastroscope was advanced through the oropharynx which was grossly normal into the esophagus. The proximal and mid-esophagus were normal. There was normal peristalsis. In the distal esophagus there was mild inflammation noted. The scope was advanced into the stomach and through the pylorus into the 3rd portion of the duodenum. The duodenum was noted to be normal. Biopsies were done to rule out Celiac. The scope was retracted back into the stomach and biopsies were done to rule out H. pylori. There was mild inflammation noted. There were no ulcers. The scope was retro-flexed. The cardia and fundus were noted to be normal. There was no hiatal hernia noted. The scope was retracted back into the esophagus and biopsies were done of the GE junction to rule out Belle's. The Z line was regular. The GE junction was at 38 cm. While the patient was still sedated they were placed in a left decubitous position. A rectal exam was done. External exam was normal. Internal exam revealed a normal sphincter tone and no palpable masses. The scope was then introduced and retro-flexed. No internal hemorrhoids were identified. The scope was then advanced to the cecum without difficulty. The ileocecal valve and appendiceal orifice were identified. The prep was good. The scope was advanced into the terminal ileum for about 10 cm. Biopsies were done. The scope was then slowly retracted over 20 minutes back into the rectum. Randome biopsies were done of the large bowel. The scope was removed and the patient was woken up and taken back to Same day surgery in stable condition. The patient tolerated the procedure well and there were no immediate complications. Follow up: 2 weeks in the office. I will change the omeprazole to lansoprazole and see if this works better for you.
--- NOTE | 2020-11-21 07:18 | W.PM.DSUDISC ---
Discharge Plan Disposition Patient Disposition: HOME Condition: Good Discharge Details Reason For Visit: colonoscopy and egd Attending Provider: France Zendejas Primary Care Provider: Hola Westbrook Home Meds and New Rx's Prescriptions: New lansoprazole 30 mg capsule,delayed release(DR/EC) 30 mg PO DAILY Qty: 30 RF: 0 Continued naproxen 500 mg tablet 500 mg PO BID PRN (Reason: pain) Qty: 30 RF: 0 ondansetron 4 mg tablet,disintegrating 4 mg PO Q8H PRN (Reason: nausea and vomiting) Qty: 20 RF: 1 albuterol sulfate 90 mcg/actuation HFA aerosol inhaler 2 inh IH Q6H PRN (Reason: shortness of breath or wheezing) Qty: 8.5 RF: 0 (DME) Aerochamber MV spacer See Dose Instructions .ROUTE .MEDSUPPLY Qty: 1 RF: 0 escitalopram oxalate [Lexapro] 20 mg tablet 20 mg PO DAILY RF: 0 Align 4 mg capsule 4 mg PO DAILY RF: 0 Discontinued omeprazole 20 mg capsule,delayed release(DR/EC) 40 mg PO BID RF: 0 Discharge Instructions Instructions: Gastritis (DC), Diet for Stomach Ulcers and Gastritis (ED), Esophagitis (DC) Additional Instructions: Findings: mild inflammation of the stomach and esophagus Normal large bowel Follow up: 2 weeks Please call if you develop: fevers >101.5 Nausea or Vomiting Abdominal pain that is not transient DAY SURGERY UNIT POST ENDOSCOPY INSTRUCTIONS 1. Because there will be medication in your system for the next 24 hours, you may feel a little sleepy. Your coordination will be affected. Therefore: a. Do not drive or operate dangerous equipment for 24 hours. b. Do not drink alcohol beverages for 24 hours (not even beer). c. Plan to go home and rest for the day. 2. Generally there are no restrictions on your activity after a day or so has gone by, but you may feel a bit fatigued for a few days. 3 After you arrive home you may have a light meal and return to a normal diet as you can tolerate it without feeling sick to your stomach. 4. After surgery, you may feel pain or discomfort. This should be only transient, but if it persists please contact your doctor. 5. If there are any questions regarding the findings of your procedure, please feel free to contact your doctor. 6. If you are unable to contact your doctor with a problem, contact the hospital at [phone]. 7. Continue all your regular medications unless directed otherwise. I understand the above instructions and have no questions. Signature of Patient or Responsible Adult Escort Date/Time Name of Responsible Adult Escort Signature of Nurse Date/Time Referrals: France Zendejas MD [ [facility] STAFF PHYSICIAN] - 12/06/20 9:00 am Activity:: Activity as Tolerated Diet:: As Tolerated Discharge Orders Discharge Orders: Discharge Order (Routine); Ordered 11/21/20 Ordered By: France Zendejas
[2020-11-21 09:20] VITALS: BP 145/90; PULSE 70; RESP 18; TEMP 36.6; O2SAT 99
[2020-11-21] MEDS: Lactated Ringers 1,000 ML 80 ML IV (09:52)
--- NOTE | 2020-11-21 10:43 | BOWEL_PTH ---
PATIENT: Sophie Mcclendon LOC: [facility] U#:[id number] AGE/SX: 25/F ROOM: RE11/21/[address]: France Zendejas MD : [id number] BED: DIS: 11/21/2020 SPEC #: [id number] RECD: 11/21/20 12:14 STATUS: BARB REKelly #: [id number] KAPIL: 11/21/20 10:[address]: France Zendejas DEPT: Surgical Specimen RECD BY: Nicole Rock ENTERED: 11/21/20 12:16 SP TYPE: Bowel OTHR DR: Hola Westbrook Tissues: 1 - BIOPSY BOWEL 2 - STOMACH BIOPSY 3 - ESOPHAGUS BIOPSY 4 - BIOPSY BOWEL 5 - BIOPSY BOWEL 6 - BIOPSY BOWEL 7 - BIOPSY BOWEL 8 - BIOPSY BOWEL 9 - BIOPSY BOWEL Procedures: GROSS AND MICRO LEVEL 4 Comments: [id number]
[2020-11-21 12:00] VITALS: BP 124/83; PULSE 50; RESP 16; TEMP 36; O2SAT 100
== END 2020-11-21 12:40 | disposition home or self-care (01) ==
LOC: SUR 09:11
PROVIDERS: PCP Nurse Practitioner Family; Visit Provider Surgery
PROC: (CPT 45380; principal; 2020-11-21 10:45)
DX: R11.2 Nausea with vomiting, unspecified (principal); K21.00 Gastro-esophageal reflux disease with esophagitis, without bleeding; K29.70 Gastritis, unspecified, without bleeding
CPT/HCPCS: 45380; 43239; 88305; J2001

== ENCOUNTER 2020-12-06 11:52 | Outpatient (CLI) | payer OTHER, SELFPAY ==
[2020-12-08 22:16] LABS: Arsenic <1 ng/mL (<13); Cadmium <0.2 ng/mL (<5.0); Mercury <1 ng/mL (<10); Submitting Laboratory Phone 802-748-7458; Venous/Capillary Venous
== END 2020-12-06 11:53 | disposition home or self-care (01) ==
LOC: LBO 11:52
PROVIDERS: PCP Nurse Practitioner Family; Visit Provider Surgery
DX: R11.2 Nausea with vomiting, unspecified (principal); R19.7 Diarrhea, unspecified
CPT/HCPCS: 87329; 82175; 82300; 83630; 83655; 83825; 87177

== ENCOUNTER 2021-10-19 19:49 | Emergency (ER) | payer OTHER, SELFPAY ==
[2021-10-19 20:11] VITALS: BP 149/102; PULSE 65; RESP 18; TEMP 37; O2SAT 99
--- NOTE | 2021-10-19 20:30 | DI.CT_ITS ---
Exam(s) CT CHEST PE CTA EXAM: CT CHEST PE CTA CLINICAL HISTORY: Chest tightness, R/O PE. TECHNIQUE: Imaging Protocol: CT angiography of the chest was performed using pulmonary embolus chacorta col. Multi planar reconstructions were performed. CONTRAST MATERIAL: Intravenous: Omnipaque 350 Contrast volume: 100 cc COMPARISON: CT CT ABDOMEN PELVIS W from 09/17/2019 FINDINGS: CHEST: PULMONARY ARTERIES: There are no intraluminal filling defects to suggest acute pulmonary emboli. LUNGS: There are no infiltrates nor evidence of pulmonary infarction.. There are no pleural effusions . MEDIASTINUM: There is no hilar nor mediastinal adenopathy. Visualized thyroid unremarkable. CARDIAC: Heart size is upper normal. There is no pericardial effusion.Caliber of the thoracic aorta is within normal limits. There is no significant shift of the interventricular septum. PARTIALLY VISUALIZED UPPERMOST ABDOMEN: Gallbladder surgically absent. No adrenal masses noted. OSSEOUS: No significant osseous lesions.. IMPRESSION: 1. No evidence of acute pulmonary emboli. No evidence of pulmonary infarction.No pleural effusions. 2. No pulmonary infiltrates and no ominous pulmonary nodules. 3. No significant osseous findings. RADIATION DOSE DELIVERED: 527.88mGy.cm Total DLP DATA REPOSITORY: All CT scans at this facility are submitted to the National Radiology Data Registry (NRDR) Dose Index Registry (DIR) with the [employer] (ACR). RADIATION OPTIMIZATION: All CT scans at this facility use at least one of these dose optimization te chniques: automated exposure control; mA and/or kV adjustment per patient size (includes targeted exa ms where dose is matched to clinical indication); or iterative reconstruction.
--- NOTE | 2021-10-19 20:30 | DI.RAD_ITS ---
Exam(s) XR KNEE RT 3V AP,LAT,GERBER EXAM: XR KNEE RT 3V AP,LAT,GERBER CLINICAL HISTORY: Fall, Right leg swelling. TECHNIQUE: 2D digital imaging was performed. COMPARISON: No exams were available for comparison FINDINGS: No evidence of acute fracture or prominent joint effusion. Bone density is normal. No degenerative changes evident. No obvious osteochondral defect. No osseous lesions. IMPRESSION: No significant radiographic findings. DATA REPOSITORY: RADIATION DOSE DELIVERED:
--- NOTE | 2021-10-19 20:42 | ED.GENADUL_ITS ---
Discharge Plan Disposition Patient Disposition: HOME Condition: Stable Discharge Details Clinical Impression: Localized swelling of right lower leg Primary Care Provider: Hola Westbrook ED Provider: Jewell Chakraborty Home Meds and New Rx's Prescriptions: Continued albuterol sulfate 90 mcg/actuation HFA aerosol inhaler 2 inh IH Q6H PRN (Reason: shortness of breath or wheezing) Qty: 8.5 RF: 0 No Action ondansetron 4 mg tablet,disintegrating 4 mg PO Q8H PRN (Reason: nausea and vomiting) Qty: 20 RF: 1 (DME) Aerochamber MV spacer See Dose Instructions .ROUTE .MEDSUPPLY Qty: 1 RF: 0 (DME) OptiChamber Sonia [facility] Spacer MISCELLANEOUS RF: 0 Discharge Instructions Instructions: Leg Edema (ED) Additional Instructions: Please follow-up with imaging and the ultrasound department to have an ultrasound of the right lower extremity to rule out DVT. They should call you in the a.m. to make an appointment. Please follow-up in the emergency department after the exam for results. The CT and x-ray of your leg are all within normal limits. Follow up with primary care provider in 3-5 days. Return to ED sooner if any worsening or concerns. Increase oral fluids. Please take Tylenol or Ibuprofen with food every 4-6 hours as needed for pain and swelling. 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 She also reports some right side tenderness. She describes it as a charley horse. She does have some contusion noted to the lateral aspect of her knee just fall on the ice this weekend. She also endorses some chest tightness. She does prolonged standing at her job. She denies any shortness of breath or chest pain. She has a past medical history of PCOS, hidradenitis suppurativa, anxiety and depression. CT Chest R/O PE, XR of Right knee, labs ordered. TECHNIQUE: Imaging protocol: XR Right knee. Views: 3 views. COMPARISON: No relevant prior studies available. FINDINGS: Bones/joints: No evidence of fracture. Negative for dislocation. Negative for bony erosion or destructive change. Patella is intact. No evidence of joint effusion. Soft tissues: Negative for soft tissue air. No foreign bodies observed. IMPRESSION: No acute osseous abnormality. If symptoms persist, follow-up imaging advised. Thank you for allowing us to participate in the care of your patient. Dictated and Authenticated by: Rohit Alba MD CT ABDOMEN PELVIS W 09/17/2019 4:49 PM FINDINGS: Pulmonary arteries: Normal. No pulmonary emboli. Aorta: Unremarkable. No aortic aneurysm. No aortic dissection. Lungs: Unremarkable. No consolidation. No masses. No ground-glass opacity. Mild dependent atelectasis. Pleural spaces: Unremarkable. No pneumothorax. No pleural effusion. Heart: Unremarkable. No cardiomegaly. No pericardial effusion. Lymph nodes: Unremarkable. No enlarged lymph nodes. Gallbladder and bile ducts: The gallbladder is surgically absent. Negative for biliary ductal dilatation. Bones/joints: Unremarkable. No acute fracture. Soft tissues: Unremarkable. IMPRESSION: 1. Negative for pulmonary embolism. 2. No significant pneumonia. Thank you for allowing us to participate in the care of your patient. Dictated and Authenticated by: Rohit Alba MD Imaging is unremarkable. Will order an outpatient ultrasound and have patient done during the day hours. I will instruct patient to follow-up in the emergency department for results. Discussed results and home care with patient who verbalizes understanding. Discussed return instructions. This text was generated using Applause dictation system, please disregard any oddities of phrase or misspellings. HPI General Mode of arrival: ambulatory . Date/Time Provider Initiated Documentation: 10/19/21 19:56 . Limitations to Documentation: no limitations . Information obtained by: patient . HPI Narrative: 26-year-old female presents to the ER with chief complaint of right lower extremity swelling which began today. She also reports some right side tenderness. She describes it as a charley horse. She does have some contusion noted to the lateral aspect of her knee just fall on the ice this weekend. She also endorses some chest tightness. She does prolonged standing at her job. She denies any shortness of breath or chest pain. She has a past medical history of PCOS, hidradenitis suppurativa, anxiety and depression. Related Data Home Medications Medication Instructions Recorded Confirmed albuterol sulfate 90 mcg/actuation 2 inh IH Q6H PRN #8.5 gm 02/10/19 10/19/21 aerosol inhaler inhalational spacing device #1 each 02/10/19 06/21/21 ondansetron 4 mg disintegrating 4 mg PO Q8H PRN #20 tab 09/28/20 10/19/21 tablet inhalational spacing device 10/19/21 10/19/21 [[facility]] Previous Rx's Medication Instructions Recorded albuterol sulfate 90 mcg/actuation 2 inh IH Q6H PRN #8.5 gm 02/10/19 aerosol inhaler inhalational spacing device #1 each 02/10/19 ondansetron 4 mg disintegrating 4 mg PO Q8H PRN #20 tab 09/28/20 tablet Allergies Allergy/AdvReac Type Severity Reaction Status Date / Time morphine Allergy Severe Anaphylaxsi Verified 10/19/21 20:17 s sucralfate AdvReac Intermediate Constipation/Fecal Verified 10/19/21 20:17 impaction Bee Allergy Allergy Swelling Uncoded 10/19/21 20:17 General Stated Complaint: Vascular PERCY: 3 Review of Systems All systems reviewed & are unremarkable except as noted in HPI and below PFSH All Active Problems (Updated 10/19/21 @ 22:24 by Jewell Chkaraborty) Localized swelling of right lower leg (Acute) Abnormal uterine bleeding (AUB) (Acute) Nausea and vomiting (Acute) Constipation (Acute) Diarrhea (Acute) Vomiting (Acute) Hidradenitis suppurativa (Acute) Hematemesis (Acute) Hematochezia (Acute) Unintentional weight loss (Acute) Microcytic hypochromic anemia (Acute) PCOS (polycystic ovarian syndrome) (Chronic) 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 Metformin started Family history of early CAD (Chronic) Father Exercise-induced asthma (Chronic) Anxiety (Chronic) Depression (Chronic) h/o Wellbutrin use, h/o prozac use; no bipolar Medical History Attempted suicide Family History Father Heart attack 37yo High cholesterol Arthritis b/l hip replacement in early 30s Mother Hypertension Anxiety Depression Diabetes Irritable bowel syndrome Paternal Grandfather High cholesterol Maternal Grandfather Diabetes Maternal Aunt Breast cancer 2 great aunts Crohn's disease Brother Aortic stenosis 17yo Social History Smoking/Tobacco Use Status: Never Smoking risk assessment performed?: Yes Alcohol Intake: former Drug use: Never Substance use type: marijuana Adopted: No Foster care: No Household members: significant other Housing: apartment Communication Needs: None Education Level: college Details: 1 yr Do you need help understanding health information?: Never 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[employer] Sexually active: Yes Do you think of yourself as: straight/heterosexual What is your relationship status?: living with partner Panel score (0-1 are the most socially isolated patients): 1 Duration: 45-60 minutes/day Frequency: 3-4 times per week Special jonathon needs: No Seatbelt use: never Helmet use: No Working smoke detector in home: Yes Carbon monox detector in home: Yes Do you feel safe at home: Yes Do you feel safe in your relationship?: Yes Female Reproductive History Menstrual control method: none History History 0 Para 0 Hx # Term Pregnancies Multiple births Hx # Pregnancies Ectopic pregnancies AB induced Hx Number of Living Children AB spontaneous Exam Narrative Exam Narrative: Constitutional: Alert and oriented x3. Appears stated age. Normal body habitus. Head: Normocephalic, no trauma. Eyes: Pupils PERRL, Red reflex noted, EOM's intact. Eyelids symmetrical without lesions, discharge, or swelling. ENT: Bilateral TM's WNL, External ear normal to inspection, no mastoid TTP, swelling, or erythema, Nasal turbinates WNL, no nasal discharge. Normal dentition, Posterior pharynx WNL, no exudate. Chest: RRR, Normal S1, S2, distal pulses intact. Resp: Lungs clear to auscultation bilaterally, no wheezes, rales, or rhonchi. Abdomen: Soft, non-distended, Normoactive bowel sounds all 4 quads. Musculoskeletal: Normal gait, 5/5 strength to all four extremities. Skin: No suspicious rashes or lesions. Capillary refill less than 2 sec. Neurologic: Cranial nerves II-XII intact. Alert and oriented x 3. Motor: No deficits noted. Sensory: Intact bilaterally all 4 extremities. Reflexes: DTR's intact bilaterally.. Hematologic/Lymphatic: No ecchymosis, no lymphadenopathy. Extrem Right lower extremity: knee Details: ecchymosis and lower leg (Negative homans sign, No calf tenderness with palpation, no erythema) Course Vital Signs Vital signs: Vital Signs Temperature 37.0 C 10/19/21 20:11 Pulse 65 10/19/21 20:11 Respiratory Rate 18 10/19/21 20:11 Blood Pressure 149/102 H 10/19/21 20:11 Pulse Oximetry 99 10/19/21 20:11 Temperature 37.0 C 10/19/21 20:11 Temperature Source Skin 10/19/21 20:11 Pulse 65 10/19/21 20:11 Respiratory Rate 18 10/19/21 20:11 Respiratory Effort Non-Labored 10/19/21 20:20 Blood Pressure 149/102 H 10/19/21 20:11 Pulse Oximetry 99 10/19/21 20:11 Pain Level 6 10/19/21 20:11 PAWSS Have you Been Recently Intoxicated or Drunk Within the Last 30 days?: Yes Have you Ever Experienced Previous Episodes of Alcohol Withdrawal?: No Have you ever Experienced Withdrawal Seizures?: No Have you ever Experienced Delirium Tremens(DT)s?: No Have you ever undergone Alcohol Rehabilitation Treatment (i.e, inpt ot outpatient treatment programs)?: No Have you ever Experienced Blackouts?: No Have you ever Combined Alcohol with any other Substance of Abuse during the last 90 days?: Yes Positive Blood Alcohol level on Presentation? [PCS.BAL]: No Evidence of Increased Autonomic Activity (i.e. HR>120, tremor, sweating, agitation, nausea)?: No Result: 3
[2021-10-19 20:54] LABS: Abs Immature Grans 0.02 10^3/uL (0.0-0.06); Absolute Basophil Count 0.05 10^3/uL (0.0-0.2); Absolute Eosinophil Count 0.26 10^3/uL (0.0-0.7); Absolute Lymphocyte Count 3.97 10^3/uL (1.2-3.4); Absolute Monocyte Count 0.56 10^3/uL (0.1-0.8); Absolute Neutrophil Count 6.09 10^3/uL (1.2-6.7); Basophils % 0.5; Eosinophils % 2.4; HCT 37.2 % (36.0-46.0); HGB 11.3 g/dL (11.2-15.7); Immature Grans % 0.2; Lymphocytes % 36.2; MCH 23.7 pg (27.0-33.0); MCHC 30.4 % (32.0-36.0); MPV 9.5 fL (8.0-11.0); Monocytes % 5.1; Neutrophils % 55.6; Nucleated RBC 0 %; Platelet Count 387 10^3/uL (130-400); RBC 4.77 10^6/uL (3.93-5.22); RDW 14.7 % (11.7-14.6); RDW-SD 40.8 fL; WBC 10.96 10^3/uL (4.4-10.8)
[2021-10-19 21:07] LABS: ALT 31 U/L (14-59); AST 21 U/L (15-37); Albumin 3.5 g/dL (3.4-5.0); Alkaline Phosphatase 83 U/L (46-116); Anion Gap 8.4 mmol/L (3-11); BUN 10 mg/dL (7-18); Bilirubin, Total 0.3 mg/dL (0.2-1.0); CO2 28.6 mmol/L (21.0-32.0); CREATININE 0.9 mg/dL (0.55-1.02); Calcium 8.5 mg/dL (8.5-10.1); Chloride 106 mmol/L (98-107); Glucose 88 mg/dL (74-106); Magnesium 2.1 mg/dL (1.8-2.4); Potassium 3.5 mmol/L (3.5-5.1); Sodium 143 mmol/L (136-145); Total Protein 7.6 g/dL (6.4-8.2)
[2021-10-19 21:15] LABS: HCG Qual (Serum) Negative
[2021-10-19] MEDS: Omnipaque 350 MG/ML 100 ML BTL IJ (21:46)
[2021-10-19] MEDS: Normal Saline Flush 10 ML SYR IVP (21:47)
--- NOTE | 2021-10-19 22:16 | DI.VRAD_ITS ---
PROCEDURE INFORMATION: Exam: XR Right Knee Exam date and time: 10/19/2021 8:41 PM Age: 26 years old Clinical indication: Injury or trauma; Fall; Sprain or strain; Patella or knee; Right TECHNIQUE: Imaging protocol: XR Right knee. Views: 3 views. COMPARISON: No relevant prior studies available. FINDINGS: Bones/joints: No evidence of fracture. Negative for dislocation. Negative for bony erosion or destructive change. Patella is intact. No evidence of joint effusion. Soft tissues: Negative for soft tissue air. No foreign bodies observed. IMPRESSION: No acute osseous abnormality. If symptoms persist, follow-up imaging advised. Dictated and Authenticated by: Rohit Alba MD. Ordering:BAMBI Corcoran MD
--- NOTE | 2021-10-19 22:18 | DI.VRAD_ITS ---
PROCEDURE INFORMATION: Exam: CTA Chest With Contrast Exam date and time: 10/19/2021 8:41 PM Age: 26 years old Clinical indication: Other: Chest tightness, R/O pe TECHNIQUE: Imaging protocol: Computed tomographic angiography of the chest with contrast. 3D rendering (Not supervised by radiologist): MIP and/or 3D reconstructed images were created by the technologist. COMPARISON: CT ABDOMEN PELVIS W 09/17/2019 4:49 PM FINDINGS: Pulmonary arteries: Normal. No pulmonary emboli. Aorta: Unremarkable. No aortic aneurysm. No aortic dissection. Lungs: Unremarkable. No consolidation. No masses. No ground-glass opacity. Mild dependent atelectasis. Pleural spaces: Unremarkable. No pneumothorax. No pleural effusion. Heart: Unremarkable. No cardiomegaly. No pericardial effusion. Lymph nodes: Unremarkable. No enlarged lymph nodes. Gallbladder and bile ducts: The gallbladder is surgically absent. Negative for biliary ductal dilatation. Bones/joints: Unremarkable. No acute fracture. Soft tissues: Unremarkable. IMPRESSION: 1. Negative for pulmonary embolism. 2. No significant pneumonia. Dictated and Authenticated by: Rohit Alba MD. Ordering:BAMBI Corcoran MD
[2021-10-19 22:33] VITALS: BP 128/78; PULSE 69; RESP 18; O2SAT 99
--- NOTE | 2021-10-20 14:36 | W.ED.FU ---
Patient called today in follow-up to her ED visit yesterday noting she was not contacted today to schedule ultrasound. She does still have discomfort in her leg with no change in symptoms. Plan to initiate treatment with Eliquis and have her return for ultrasound as soon as possible, likely on Saturday. She was encouraged to return sooner to be reevaluated in the emerge department for any worsening or new concerning symptoms.
== END 2021-10-19 22:42 | disposition home or self-care (01) ==
PROVIDERS: Emergency Provider Registered Nurse Emergency; PCP Nurse Practitioner Family
DX: R22.41 Localized swelling, mass and lump, right lower limb (principal); S80.01XA Contusion of right knee, initial encounter; W00.0XXA Fall on same level due to ice and snow, initial encounter; R07.89 Other chest pain
CPT/HCPCS: 71275; 73562; 80053; 99285; 83735; 84703; 85025; 99284; J3490

== ENCOUNTER 2021-11-20 14:41 | Emergency (ER) | payer OTHER, SELFPAY ==
[2021-11-20 14:59] VITALS: BP 145/72; PULSE 54; RESP 14; TEMP 36.8; O2SAT 100
--- NOTE | 2021-11-20 15:59 | ED.GENADUL_ITS ---
Discharge Plan Disposition Patient Disposition: HOME Condition: Stable Discharge Details Clinical Impression: Contusion of foot, left Primary Care Provider: Hola Westbrook ED Provider: Endy Escobar Home Meds and New Rx's Prescriptions: Continued ondansetron 4 mg tablet,disintegrating 4 mg PO Q8H PRN (Reason: nausea and vomiting) Qty: 20 RF: 1 albuterol sulfate 90 mcg/actuation HFA aerosol inhaler 2 inh IH Q6H PRN (Reason: shortness of breath or wheezing) Qty: 8.5 RF: 0 (DME) Aerochamber MV spacer See Dose Instructions .ROUTE .MEDSUPPLY Qty: 1 RF: 0 (DME) OptiChamber Sonia C Spacer MISCELLANEOUS RF: 0 Discharge Instructions Instructions: Foot Contusion (ED) Additional Instructions: Please wear postop shoe and use crutches for the next 1 week. Pain should improve over this time. You may gradually weight-bear as tolerated. Please take ibuprofen over the counter. Take 400mg by mouth every 6 hours as needed for pain over the next 5 days. Please take acetaminophen (tylenol) - 650mg every 6 hours by mouth as needed for pain. If pain persists despite immobilization, please follow-up with orthopedics. Additional diagnostic testing would be necessary for persistent pain that is not improving as expected. Please contact your primary care physician to arrange follow-up. Return to the ER immediately for any worsening or new concerning symptoms. Referrals: Hola Westbrook, LEAD HOUSEKEEPER [Primary Care Provider] - Medical Decision Making 26yo f here after slip and fall on ice with injury to left dorsal foot. Foot impacted hard front of shoe during fall. Patient has tenderness and mild swelling with bruising dorsal foot. Will give ibuprofen for pain. Xray of the left foot with weight bearing views was reviewed and interpreted by radiology: FINDINGS: No evidence of acute fracture or diastasis of the Lisfranc joint. No pes planus. No osseous lesions nor erosions. Bone density appears normal. Patient was placed in short orthopedic and crutches. She would advise to rest her foot and weight-bear as tolerated. She was encouraged to follow-up with orthopedics should pain not improve over the next week. HPI General Mode of arrival: ambulatory . Date/Time Provider Initiated Documentation: 11/20/21 14:50 . Limitations to Documentation: no limitations . Information obtained by: patient . History of Present Illness 26 year old F presents to the emergency department with the chief complaint of foot pain, described as severe, Quality is described as sharp, and is localized to the left. Patient reports no radiation. and it has been constant. Movement worsens symptoms . Patient notes no other symptoms.. Patient did receive the following treatments prior to arrival, none Related Data Home Medications Medication Instructions Recorded Confirmed albuterol sulfate 90 mcg/actuation 2 inh IH Q6H PRN #8.5 gm 02/10/19 11/20/21 aerosol inhaler inhalational spacing device #1 each 02/10/19 06/21/21 ondansetron 4 mg disintegrating 4 mg PO Q8H PRN #20 tab 09/28/20 11/20/21 tablet OptiChamber Sonia [facility] 10/19/21 10/19/21 Previous Rx's Medication Instructions Recorded albuterol sulfate 90 mcg/actuation 2 inh IH Q6H PRN #8.5 gm 02/10/19 aerosol inhaler inhalational spacing device #1 each 02/10/19 ondansetron 4 mg disintegrating 4 mg PO Q8H PRN #20 tab 09/28/20 tablet Allergies Allergy/AdvReac Type Severity Reaction Status Date / Time morphine Allergy Severe Anaphylaxsi Verified 11/20/21 15:02 s sucralfate AdvReac Intermediate Constipation/Fecal Verified 11/20/21 15:02 impaction Bee Allergy Allergy Swelling Uncoded 11/20/21 15:02 General Stated Complaint: Orthopedic PERCY: 4 Review of Systems Musculoskeletal Musculoskeletal: Reports as per HPI and Denies numbness Integumentary/Breasts Skin/Breast: Reports other (no laceration) Neurologic Neurologic: Denies localized weakness and Denies numbness PFSH All Active Problems (Updated 11/20/21 @ 16:50 by Endy Escobar MD) Contusion of foot, left (Acute) Abnormal uterine bleeding (AUB) (Acute) Nausea and vomiting (Acute) Constipation (Acute) Diarrhea (Acute) Vomiting (Acute) Hidradenitis suppurativa (Acute) Hematemesis (Acute) Hematochezia (Acute) Unintentional weight loss (Acute) Microcytic hypochromic anemia (Acute) PCOS (polycystic ovarian syndrome) (Chronic) 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 Family history of early CAD (Chronic) Father Exercise-induced asthma (Chronic) Anxiety (Chronic) Depression (Chronic) h/o Wellbutrin use, h/o prozac use; no bipolar Medical History Attempted suicide Family History Father Heart attack 37yo High cholesterol Arthritis b/l hip replacement in early 30s Mother Hypertension Anxiety Depression Diabetes Irritable bowel syndrome Paternal Grandfather High cholesterol Maternal Grandfather Diabetes Maternal Aunt Breast cancer 2 great aunts Crohn's disease Brother Aortic stenosis 17yo Social History Smoking/Tobacco Use Status: Never Smoking risk assessment performed?: Yes Alcohol Intake: current Alcohol Intake frequency: holidays/special occasions only Drug use: Occasionally Substance use type: marijuana Adopted: No Foster care: No Household members: significant other Housing: apartment Communication Needs: None Education Level: college Details: 1 yr Do you need help understanding health information?: Never 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[employer] Sexually active: Yes Do you think of yourself as: straight/heterosexual What is your relationship status?: living with partner Panel score (0-1 are the most socially isolated patients): 1 Duration: 45-60 minutes/day Frequency: 3-4 times per week Special jonathon needs: No Seatbelt use: never Helmet use: No Working smoke detector in home: Yes Carbon monox detector in home: Yes Do you feel safe at home: Yes Do you feel safe in your relationship?: Yes Female Reproductive History Menstrual control method: none History History 0 Para 0 Hx # Term Pregnancies Multiple births Hx # Pregnancies Ectopic pregnancies AB induced Hx Number of Living Children AB spontaneous Exam Const General: cooperative and no acute distress Cardio Rate: regular rate and not tachycardic Rhythm: regular rhythm Skin General skin exam: no rashes or lesions noted Neuro General: patient alert, patient awake, patient oriented x3 and tone normal Extrem General: no edema Left lower extremity: foot Details: tenderness Location: of the dorsal foot Location: laterally; not of the base of the 5th metatarsal Other: neuro intact distal left foot Course Vital Signs Vital signs: Vital Signs Temperature 36.8 C 11/20/21 14:59 Pulse 54 L 11/20/21 14:59 Respiratory Rate 14 01/24/22 14:59 Blood Pressure 145/72 H 11/20/21 14:59 Pulse Oximetry 100 11/20/21 14:59 Temperature 36.8 C 11/20/21 14:59 Temperature Source Temporal Artery Scan 11/20/21 14:59 Pulse 54 L 11/20/21 14:59 Respiratory Rate 14 11/20/21 14:59 Respiratory Effort Non-Labored 11/20/21 15:03 Blood Pressure 145/72 H 11/20/21 14:59 Blood Pressure Position Sitting 11/20/21 14:59 Pulse Oximetry 100 11/20/21 14:59 Oxygen Delivery Method Room Air 11/20/21 14:59 Oxygen Flow Rate 0 11/20/21 14:59 Pain Level 8 11/20/21 15:03 PAWSS Have you Been Recently Intoxicated or Drunk Within the Last 30 days?: Yes Have you Ever Experienced Previous Episodes of Alcohol Withdrawal?: No Have you ever Experienced Withdrawal Seizures?: No Have you ever Experienced Delirium Tremens(DT)s?: No Have you ever undergone Alcohol Rehabilitation Treatment (i.e, inpt ot outpatient treatment programs)?: No Have you ever Experienced Blackouts?: No Have you ever Combined Alcohol with other Downers within the last 90 days?: No Have you ever Combined Alcohol with any other Substance of Abuse during the last 90 days?: No Positive Blood Alcohol level on Presentation? [PCS.BAL]: No Evidence of Increased Autonomic Activity (i.e. HR>120, tremor, sweating, agitation, nausea)?: No Result: 1
[2021-11-20] MEDS: Ibuprofen 600 MG TAB PO (16:01)
--- NOTE | 2021-11-20 16:10 | DI.RAD_ITS ---
Exam(s) XR FOOT LT COMPLETE EXAM: XR FOOT LT COMPLETE CLINICAL HISTORY: pain dorsal lateral. TECHNIQUE: 2D digital imaging was performed. COMPARISON: No exams were available for comparison FINDINGS: No evidence of acute fracture or diastasis of the Lisfranc joint. No pes planus. No osseous lesions nor erosions. Bone density appears normal. IMPRESSION: DATA REPOSITORY: RADIATION DOSE DELIVERED:
[2021-11-20 16:37] VITALS: BP 132/85; PULSE 60; TEMP 37; O2SAT 97
== END 2021-11-20 17:11 | disposition home or self-care (01) ==
PROVIDERS: Emergency Provider Student in an Organized Health Care Education/Training Program; PCP Nurse Practitioner Family
DX: S90.32XA Contusion of left foot, initial encounter (principal); W00.0XXA Fall on same level due to ice and snow, initial encounter
CPT/HCPCS: 29515; 99283; 73630

== ENCOUNTER 2022-09-14 13:40 | Outpatient (REF) | payer OTHER, SELFPAY ==
[2022-09-16 11:50] LABS: Campylobacter PCR Negative (Negative); Salmonella PCR Negative (Negative); Shiga Toxin PCR Negative (Negative); Shigella/Enteroinvasive Ecoli Negative (Negative)
== END 2022-09-14 13:41 | disposition home or self-care (01) ==
LOC: NCHCN 13:40
PROVIDERS: PCP Physician Assistant; Visit Provider Nurse Practitioner Family
DX: R19.7 Diarrhea, unspecified (principal); B83.9 Helminthiasis, unspecified
CPT/HCPCS: 87505; 87177

== ENCOUNTER 2022-09-17 11:45 | Outpatient (REF) | payer OTHER, SELFPAY | END 2022-09-17 11:46 | disposition home or self-care (01) | LOC: NCHCN 11:45 | PROVIDERS: PCP Physician Assistant; Visit Provider Nurse Practitioner Family | DX: B83.8 Other specified helminthiases (principal) | CPT/HCPCS: 87177 ==

== ENCOUNTER 2022-09-19 13:15 | Outpatient (REF) | payer OTHER, SELFPAY | END 2022-09-19 13:16 | disposition home or self-care (01) | LOC: LBN 13:15 | PROVIDERS: PCP Physician Assistant; Visit Provider Nurse Practitioner Family | DX: B83.8 Other specified helminthiases (principal) | CPT/HCPCS: 87177 ==

== ENCOUNTER 2022-10-08 09:33 | Emergency (ER) | payer OTHER, SELFPAY ==
[2022-10-08 09:36] VITALS: BP 149/95; PULSE 63; RESP 16; TEMP 36.1; O2SAT 98
--- NOTE | 2022-10-08 09:51 | ED.GENADUL_ITS ---
Discharge Plan Disposition Patient Disposition: Home Condition: Stable Discharge Details Clinical Impression: Abdominal pain Primary Care Provider: Gigi rBizuela ED Provider: Bobbi Perez Home Meds and New Rx's Prescriptions: Continued ondansetron 4 mg tablet,disintegrating 4 mg PO Q8H PRN (Reason: nausea and vomiting) Qty: 20 1RF albuterol sulfate 90 mcg/actuation HFA aerosol inhaler 2 inh IH Q6H PRN (Reason: shortness of breath or wheezing) Qty: 8.5 0RF (DME) Aerochamber MV spacer See Dose Instructions .ROUTE .MEDSUPPLY Qty: 1 0RF Dose Instruction: As directed Rx Instructions: As directed (DME) [facility] Spacer MISCELLANEOUS Discharge Instructions Instructions: Abdominal Pain (ED) Additional Instructions: Your labs and imaging are reassuring here today. As we discussed, some of this could be associated with your dominant follicle and where you are out in your cycle. It could also be associated with your recent infection and treatment. Please encourage hydration. May continue with Tylenol and ibuprofen as needed for discomfort. You may continue with Zofran as previously prescribed if you develop any recurrent nausea or vomiting. Please keep your upcoming appoint w ith your primary care. If you develop any new or worsening symptoms please seek care urgently once again. Referrals: Gigi Brizuela [Primary Care Provider] - Discharge Data Discharge Date/Time-TO BE ENTERED AT DEPARTURE: 10/08/22 14:44 Medical Decision Making Patient is a pleasant 27-year-old female presenting today with chief complaint of right lower quadrant pain. She reports the pain began yesterday but was closer to umbilical area. States the pain has progressively increased and is migrated down towards the right lower quadrant. Denies any fevers or chills. Reports diminished appetite and nausea but no azar vomiting. States that she classically has loose stools but did have difficulty today. States that straining cause increased pain in the right lower quadrant. Past surgical history is pertinent for cholecystectomy at the age of 18. She states that she finished her menses about 2 days ago. On exam, patient appears uncomfortable. She is hemodynamically stable. She is holding the right lower quadrant. Lungs are clear, normal cardiac exam. No CVA tenderness with percussion. She has pain elicited with palpation over the umbilicus and right lower quadrant. She does have some guarding of the right lower quadrant and a positive psoas sign. Primarily concerned for Appendicitis. She has had her menses and pain is higher than I would expect for torsion, I have less concern for ectopic or torsion. Will treat her pain, nausea, hydrate the patient and obtain imaging. Patient will remain n.p.o. Last had something to eat yesterday. We will also obtain rapid fluvid in prep for possible surgical intervention. Spoke with radiologist, he advised normal appendix. He advised that she has small fibroid on the uterus but no surrounding stranding or free fluid. He advised ovary does not appear to be involved. Reevaluated the patient. He is feeling somewhat improved with the medical management. However, continues to have some right lower quadrant pain. With how uncomfortable patient was when she first came in, having nausea and dry heaving associated with severe abdominal pain, I do feel that it would be appropriate for pelvic ultrasound I discussed this plan with the patient. She reports that she has had ovarian cyst in the past. Spoke with radiologist about US. He advised dominant follicle is on R, small amount of free fluid but no torsion Discussed these findings with the patient. She is not having any vaginal discharge or dyspareunia to suggest PID or vaginal infection. The radiologist did advise that this could be associated with the dominant follicle development. Alternatively, patient may have ruptured a small cyst that is now not able to be visualized. However, no evidence of emergent pathology at this time. I encouraged hydration. Advised supportive care. Encourage close follow-up with primary care. Return cautions were discussed. All of her questions and concerns were addressed and she is in agreement this plan. Sign Out No HPI General Date/Time Provider Initiated Documentation: 10/08/22 09:40 . Limitations to Documentation: no limitations . Information obtained by: patient and RN notes reviewed . History of Present Illness 27 year old F presents to the emergency department with the chief complaint of RLQ pain, described as severe, with intensity rated at 7. Quality is described as stabbing, and is localized to the abdomen. Patient reports no radiation. Patient started experiencing this day(s) and it has been constant. No relieving factors improve symptom(s), No exacerbating factors reported . Patient notes fever/chills, loss of appetite, malaise and nausea/vomiting; denies chest pain, cough, diaphoresis and shortness of breath. Patient did receive the following treatments prior to arrival, none Related Data Home Medications Medication Instructions Recorded Confirmed albuterol sulfate 90 mcg/actuation 2 inh inhalation Q6H PRN shortness 02/10/19 10/08/22 aerosol inhaler of breath or wheezing #8.5 grams inhalational spacing device #1 ea 02/10/19 10/08/22 (Aerochamber MV spacer) ondansetron 4 mg disintegrating 4 mg PO Q8H PRN nausea and 09/28/20 10/08/22 tablet vomiting #20 tabs inhalational spacing device 10/19/21 10/08/22 ([facility] spacer) Previous Rx's Medication Instructions Recorded albuterol sulfate 90 mcg/actuation 2 inh inhalation Q6H PRN shortness 02/10/19 aerosol inhaler of breath or wheezing #8.5 grams inhalational spacing device #1 ea 02/10/19 (Aerochamber MV spacer) ondansetron 4 mg disintegrating 4 mg PO Q8H PRN nausea and 09/28/20 tablet vomiting #20 tabs Allergies Allergy/AdvReac Type Severity Reaction Status Date / Time morphine Allergy Severe Anaphylaxsi Verified 10/08/22 09:40 s sucralfate AdvReac Intermediate Constipation/Fecal Verified 10/08/22 09:40 impaction Bee Allergy Allergy Swelling Uncoded 10/08/22 09:40 General Stated Complaint: Abd Prob PERCY: 3 Review of Systems Constitutional Constitutional: Reports as per HPI, Denies chills, Denies fatigue, Denies fever(s) and Denies headache(s) ENT Ears, Nose, Mouth, and Throat: Denies headache(s) Cardiovascular Cardiovascular: Reports as per HPI, Denies chest pain and Denies dyspnea Respiratory Respiratory: Reports as per HPI, Denies cough and Denies dyspnea Gastrointestinal Gastrointestinal: Reports as per HPI Genitourinary Genitourinary: Denies abnormal vaginal bleeding, Denies dysuria, Denies pelvic pain, Denies vaginal discharge, Denies vaginal odor and Denies vaginal pruritus Musculoskeletal Musculoskeletal: Reports as per HPI and Denies back pain Integumentary/Breasts Skin/Breast: Reports as per HPI and Denies rash Neurologic Neurologic: Reports as per HPI and Denies headache(s) Endocrine Endocrine: Denies fatigue PFSH All Active Problems (Updated 10/08/22 @ 14:26 by ELIECER Arnett) Abdominal pain (Acute) Abnormal uterine bleeding (AUB) (Acute) Nausea and vomiting (Acute) Constipation (Acute) Diarrhea (Acute) Vomiting (Acute) Hidradenitis suppurativa (Acute) Hematemesis (Acute) Hematochezia (Acute) Unintentional weight loss (Acute) Microcytic hypochromic anemia (Acute) PCOS (polycystic ovarian syndrome) (Chronic) Dx'ed [facility] [employer] 01/2019 Metformin started Family history of early CAD (Chronic) Father Exercise-induced asthma (Chronic) Anxiety (Chronic) Depression (Chronic) h/o Wellbutrin use, h/o prozac use; no bipolar Medical History Attempted suicide Family History Father Heart attack 37yo High cholesterol Arthritis b/l hip replacement in early 30s Mother Hypertension Anxiety Depression Diabetes Irritable bowel syndrome Paternal Grandfather High cholesterol Maternal Grandfather Diabetes Maternal Aunt Breast cancer 2 great aunts Crohn's disease Brother Aortic stenosis 17yo Social History Smoking/Tobacco Use Status: Never Smoking risk assessment performed?: Yes Alcohol Intake: current Alcohol Intake frequency: holidays/special occasions only Drug use: Occasionally Substance use type: marijuana Adopted: No Foster care: No Household members: significant other Housing: apartment Communication Needs: None Education Level: college Details: 1 yr Do you need help understanding health information?: Never 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[employer] Sexually active: Yes Do you think of yourself as: straight/heterosexual What is your relationship status?: living with partner Panel score (0-1 are the most socially isolated patients): 1 Duration: 45-60 minutes/day Frequency: 3-4 times per week Special jonathon needs: No Seatbelt use: never Helmet use: No Working smoke detector in home: Yes Carbon monox detector in home: Yes Do you feel safe at home: Yes Do you feel safe in your relationship?: Yes Female Reproductive History Menstrual control method: none History History 0 Para 0 Hx # Term Pregnancies Multiple births Hx # Pregnancies Ectopic pregnancies AB induced Hx Number of Living Children AB spontaneous Exam Const General: cooperative, healthy appearing, comfortable, no acute distress and well developed Nutritional Appearance: average body habitus and well nourished Orientation: alert and awake [facility] Head: normal to inspection Mouth: moist mucous membranes Resp Effort & Inspection: normal respiratory effort, able to speak in complete sentences and no respiratory distress Auscultation: clear to auscultation bilaterally, no rales, no rhonchi and no wheezes Cardio Rate: regular rate Rhythm: regular rhythm Heart Sounds: S1 normal and S2 normal GI Inspection: normal to inspection Palpation: soft, no hepatosplenomegaly, not rigid, tender in the RLQ, at McBurney's point, periumbilically, psoas sign positive and with rebound tenderness and No ascites Percussion: normal to percussion Auscultation: normal bowel sounds Back/Spine/Pelvis Back: no CVA tenderness Skin General skin exam: no rashes or lesions noted Trauma: no lacerations or abrasions Neuro General: patient alert and patient awake Cognition: normal cognition Speech: speech normal Gait: normal gait Psych Appearance: grossly normal and well kempt Mental Status: mental status grossly normal Speech and Movement: speech and movement normal Course Vital Signs Vital signs: Vital Signs Temperature 36.1 C L 10/08/22 09:36 Pulse 63 10/08/22 09:36 Respiratory Rate 16 10/08/22 09:36 Blood Pressure 149/95 H 10/08/22 09:36 Pulse Oximetry 98 10/08/22 09:36 Temperature 36.1 C L 10/08/22 09:36 Temperature Source Temporal Artery Scan 10/08/22 09:36 Pulse 63 10/08/22 09:36 Respiratory Rate 16 10/08/22 09:36 Respiratory Effort 10/08/22 09:40 Blood Pressure 149/95 H 10/08/22 09:36 Blood Pressure Position Sitting 10/08/22 09:36 Pulse Oximetry 98 10/08/22 09:36 Oxygen Delivery Method Room Air 10/08/22 09:36 Oxygen Flow Rate 0 10/08/22 09:36 Pain Level 7 10/08/22 09:36
[2022-10-08] MEDS: Lactated Ringers 1,000 ML 1000 ML IV (09:56)
[2022-10-08 10:02] LABS: Abs Immature Grans 0.01 10^3/uL (0.0-0.06); Absolute Basophil Count 0.06 10^3/uL (0.0-0.2); Absolute Eosinophil Count 0.17 10^3/uL (0.0-0.7); Absolute Monocyte Count 0.39 10^3/uL (0.1-0.8); Absolute Neutrophil Count 3.61 10^3/uL (1.2-6.7); Basophils % 0.9; Eosinophils % 2.4; HCT 41.9 % (36.0-46.0); HGB 13.1 g/dL (11.2-15.7); Immature Grans % 0.1; Lymphocytes % 38.9; MCH 24.6 pg (27.0-33.0); MCHC 31.3 % (32.0-36.0); MCV 79 fL (80-95); MPV 9.2 fL (8.0-11.0); Monocytes % 5.6; Neutrophils % 52.1; Platelet Count 362 10^3/uL (130-400); RBC 5.32 10^6/uL (3.93-5.22); RDW 14.3 % (11.7-14.6); RDW-SD 40.7 fL; WBC 6.94 10^3/uL (4.4-10.8)
[2022-10-08] MEDS: Ondansetron 4 MG/2 ML VIAL IVP ×2 (10:03→14:39)
[2022-10-08] MEDS: HYDROmorphone 2 MG/ML SYR 0.5 MG IVP (10:04)
[2022-10-08 10:21] LABS: ALT 17 U/L (14-59); AST 16 U/L (15-37); Albumin 3.5 g/dL (3.4-5.0); Alkaline Phosphatase 87 U/L (46-116); Anion Gap 10.2 mmol/L (3-11); BUN 7 mg/dL (7-18); Bilirubin, Total 0.5 mg/dL (0.2-1.0); CO2 25.8 mmol/L (21.0-32.0); CREATININE 0.9 mg/dL (0.55-1.02); Calcium 8.8 mg/dL (8.5-10.1); Chloride 104 mmol/L (98-107); Glucose 90 mg/dL (74-106); Lipase 76 U/L (73-393); Magnesium 2.1 mg/dL (1.8-2.4); Potassium 3.7 mmol/L (3.5-5.1); Sodium 140 mmol/L (136-145); Total Protein 7.7 g/dL (6.4-8.2)
[2022-10-08 10:41] LABS: Bilirubin Negative (Negative); Blood Negative (Negative); Clarity Clear (Clear); Glucose Negative (Negative); Ketones Negative (Negative); Leukocyte Esterase Negative (Negative); Nitrite Negative (Negative); Urobilinogen 0.2 EU/dL (Up TO 0.2); pH 8.5 (5-8)
--- NOTE | 2022-10-08 11:12 | DI.CT_ITS ---
Exam(s) CT ABDOMEN PELVIS W EXAM: CT ABDOMEN PELVIS W CLINICAL HISTORY: RLQ pain. TECHNIQUE: Imaging Protocol: Axial computed tomography images with coronal and sagittal reformatted images were created and reviewed CONTRAST MATERIAL: Intravenous: Omnipaque 350 100cc Oral: None COMPARISON: CT CT CHEST PE CTA from 10/19/2021 FINDINGS: VISUALIZED LUNG BASES: No nodules nor pleural effusions evident. ABDOMEN: There is no ascites. LIVER: There are no focal hepatic lesions evident . GALLBLADDER/BILIARY: Gallbladder surgically absent. CBD is not dilated. PANCREAS: No evidence of pancreatic mass nor dilatation of the pancreatic duct. SPLEEN: Spleen is not enlarged. No obvious intrasplenic lesions. Splenic and portal veins are paten t. ADRENALS: There are no significant adrenal masses. KIDNEYS:No cysts evident. No solid renal masses. No calculi nor hydronephrosis.. ABDOMINAL AORTA: Abdominal aorta is not enlarged. LYMPH NODES:There is no retroperitoneal nor paraaortic adenopathy. ABDOMINAL WALL: No evidence of significant anterior abdominal wall nor inguinal hernia. GI: There is no evidence of bowel obstruction, free air, nor abscess. PELVIS: GI: No evidence of appendicitis.No evidence of sigmoid diverticulitis. LYMPH NODES: There is no intrapelvic nor inguinal adenopathy. REPRODUCTIVE: Uterus is anteverted. There is some enhancement of the junctional zone of the uterus a nd a focus of enhancement in the fundus which may be a small fibroid or polyp measuring 7 x7 millimet ers.. No free fluid. Ovaries appear age-appropriate. Dominant follicle in right ovary measures kiya roximately 1.4 x 1.0 cm. No free fluid. URINARY BLADDER: No calculi nor obvious masses evident OSSEOUS: No significant osseous lesions. No fractures. IMPRESSION: 1. No evidence of appendicitis nor diverticulitis. 2. Gallbladder surgically absent. The biliary tree is not dilated 3. Dominant follicle in the right ovary measuring 14 x 10 millimeters. There is some enhancement at the junctional zone of the uterus and possibly within a small fibroid or polyp at the fundal level me asuring approximately 7 x 7 millimeters. If clinically indicated follow-up ultrasound can be perform ed. Discussed by phone with ER provider. RADIATION DOSE DELIVERED: 1,174.52mGy.cm Total DLP DATA REPOSITORY: All CT scans at this facility are submitted to the National Radiology Data Registry (NRDR) Dose Index Registry (DIR) with the [employer] (ACR). RADIATION OPTIMIZATION: All CT scans at this facility use at least one of these dose optimization te chniques: automated exposure control; mA and/or kV adjustment per patient size (includes targeted exa ms where dose is matched to clinical indication); or iterative reconstruction.
[2022-10-08] MEDS: Omnipaque 350 MG/ML 500 ML BTL-Imaging package 125 ML IJ (11:19)
[2022-10-08] MEDS: Normal Saline - Diluent 50 ML VIAL IV (11:20)
--- NOTE | 2022-10-08 12:01 | DI.US_ITS ---
Exam(s) US PELVIS TRANSVAGINAL EXAM: US PELVIS TRANSVAGINAL CLINICAL HISTORY: RLQ pain TECHNIQUE: Ultrasound of the pelvis was performed both transabdominal and transvaginal. COMPARISON: US US LOWER EXTREMITY VENOUS RT from 10/23/[address] ABDOMEN PELVIS W from 10/08/2022 FINDINGS: UTERUS: Anteverted Measures 7 cm length x 3 cm AP x 4 cm wide. There are no obvious uterine fibroids. Endometrial thickness measures 5 mm. There is no fluid in the endometrial canal. CERVIX: There are no obvious nabothian cysts. RIGHT OVARY: Measures 2.3 x 2.7 x 2.4 cm Contains follicular cysts as well as dominant follicular cysts measuring 1.5 by 1.3 x 1.2 cm. LEFT OVARY: Measures 2.6 x 2.4 x 2.1 cm Contains small sub cm follicular cysts. CUL-DE-SAC: Small amount of free fluid noted. IMPRESSION: 1. Normal appearing uterus and age-appropriate endometrium. 2. Dominant follicle left ovary measuring 15 x 13 x 12 millimeters. 3. Tiny amount of free fluid in the cul-de-sac. Discussed with ER provider DATA REPOSITORY:
--- NOTE | 2022-10-08 14:24 | W.SURGCON ---
Date of service: 10/08/22 Time of Service: 12:00 Assessment and Plan Assessment and plan (1) Abdominal pain: Status: Acute Assessment and plan: 27 yo woman with RLQ pain for 24 hours of unknown etiology or significance. HD stable. Though moderately tender, she has no peritoneal signs. I reviewed her CT scan which looked normal to me. Normal appendix. Normal TI. No free air and no obvious free fluid. R ovary looked a little strange to me. No dilated bowel loops. I think appendicitis is almost certainly ruled out. Enough time has passed (>24 hours) that inflammation should have been seen on the CT scan at this point. DDx include ovarian pathologies and PID . . . but considering her exam and the imaging, I don't recommend surgical exploration or management at this time. Ovarian torison may be in the Ddx and OBGYN consultation and an ultrasound could be considered. I counseled the patient to call us back if anything gets worse. History of Present Illness Narrative: 27 yo woman started having abdominal pain acutely/suddenly in the RLQ 24 hours ago. It never moved. It has remained the same since. She has a history of ovarian cysts and says this is different. She has had her GB removed and notes that that was different as well. No bowel habit changes or N or V. She does think passing gas is more difficult right now. No fevers. PFSH All Active Problems (Updated 10/08/22 @ 14:26 by ELIECER Arnett) Abdominal pain (Acute) Abnormal uterine bleeding (AUB) (Acute) Nausea and vomiting (Acute) Constipation (Acute) Diarrhea (Acute) Vomiting (Acute) Hidradenitis suppurativa (Acute) Hematemesis (Acute) Hematochezia (Acute) Unintentional weight loss (Acute) Microcytic hypochromic anemia (Acute) PCOS (polycystic ovarian syndrome) (Chronic) Dx'ed [facility] [employer] 01/2019 Metformin started Family history of early CAD (Chronic) Father Exercise-induced asthma (Chronic) Anxiety (Chronic) Depression (Chronic) h/o Wellbutrin use, h/o prozac use; no bipolar Medical History Attempted suicide Family History Father Heart attack 37yo High cholesterol Arthritis b/l hip replacement in early 30s Mother Hypertension Anxiety Depression Diabetes Irritable bowel syndrome Paternal Grandfather High cholesterol Maternal Grandfather Diabetes Maternal Aunt Breast cancer 2 great aunts Crohn's disease Brother Aortic stenosis 17yo Social History Smoking/Tobacco Use Status: Never Smoking risk assessment performed?: Yes Alcohol Intake: current Alcohol Intake frequency: holidays/special occasions only Drug use: Occasionally Substance use type: marijuana Adopted: No Foster care: No Household members: significant other Housing: apartment Communication Needs: None Education Level: college Details: 1 yr Do you need help understanding health information?: Never 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[employer] Sexually active: Yes Do you think of yourself as: straight/heterosexual What is your relationship status?: living with partner Panel score (0-1 are the most socially isolated patients): 1 Duration: 45-60 minutes/day Frequency: 3-4 times per week Special jonathon needs: No Seatbelt use: never Helmet use: No Working smoke detector in home: Yes Carbon monox detector in home: Yes Do you feel safe at home: Yes Do you feel safe in your relationship?: Yes Female Reproductive History Menstrual control method: none History History 0 Para 0 Hx # Term Pregnancies Multiple births Hx # Pregnancies Ectopic pregnancies AB induced Hx Number of Living Children AB spontaneous Exam Narrative Exam Narrative: Gen: Nontoxic, comfortable, interactive Neuro: AxOx3 Psych: Appropriate mood and affect Abdomen: Soft, nondistended, tender in B/L lower quadrants but without peritoneal signs. Upper quadrants are not tender. Results Last Vital Signs Temp 97.0 F L 10/08/22 09:36 Pulse 63 10/08/22 09:36 Resp 16 10/08/22 09:36 BP 149/95 H 10/08/22 09:36 Pulse Ox 98 10/08/22 09:36 Labs Result diagrams: 10/08/22 09:50 10/08/22 09:50 Labs: Laboratory Results - last 24 hr 10/08/22 10/08/22 10/08/22 09:50 09:50 10:20 WBC 6.94 RBC 5.32 H Hgb 13.1 Hct 41.9 MCV 79 L MCH 24.6 L MCHC 31.3 L RDW 14.3 Plt Count 362 MPV 9.2 Immature Gran % 0.1 Neutrophils % 52.1 Lymphocytes % 38.9 Monocytes % 5.6 Eosinophils % 2.4 Basophils % 0.9 Nucleated RBC % 0.0 Absolute Neutrophils 3.61 Absolute Lymphocytes 2.70 Absolute Monocytes 0.39 Absolute Eosinophils 0.17 Absolute Basophils 0.06 Sodium 140 Potassium 3.7 Chloride 104 Carbon Dioxide 25.8 Anion Gap 10.2 BUN 7 Creatinine 0.9 Est GFR (CKD-EPI 2020) 89.30 Glucose 90 Calcium 8.8 Magnesium 2.1 Total Bilirubin 0.5 AST 16 ALT 17 Alkaline Phosphatase 87 Total Protein 7.7 Albumin 3.5 Lipase 76 Urine Color Yellow Urine Clarity Clear Urine pH 8.5 H Ur Specific [place] 1.020 Urine Protein Negative Urine Ketones Negative Urine Blood Negative Urine Nitrite Negative Urine Bilirubin Negative Urine Urobilinogen 0.2 Ur Leukocyte Esterase Negative Urine Glucose Negative
[2022-10-08 14:37] VITALS: BP 130/78; PULSE 62; TEMP 36.6; O2SAT 100
== END 2022-10-08 14:44 | disposition home or self-care (01) ==
PROVIDERS: Emergency Provider Physician Assistant; PCP Physician Assistant
DX: R10.31 Right lower quadrant pain (principal)
CPT/HCPCS: 80053; 81025; 83690; 96361; 96374; 96375; 96376; 99285; 74177; 76830; 76856; 81003; 83735; 85025; 99284; J1170; J2405

== ENCOUNTER 2022-11-20 13:17 | Outpatient (REF) | payer OTHER, SELFPAY | END 2022-11-20 13:18 | disposition home or self-care (01) | LOC: LBN 13:17 | PROVIDERS: PCP Physician Assistant; Visit Provider Obstetrics & Gynecology | DX: N89.8 Other specified noninflammatory disorders of vagina (principal) | CPT/HCPCS: 87480; 87510; 87660 ==

== ENCOUNTER 2023-02-07 16:56 | Outpatient (REF) | payer OTHER, SELFPAY | END 2023-02-07 16:57 | disposition home or self-care (01) | LOC: LBN 16:56 | PROVIDERS: PCP Physician Assistant; Visit Provider Obstetrics & Gynecology | DX: R30.0 Dysuria (principal) | CPT/HCPCS: 87077; 87086; 87186 ==

== ENCOUNTER 2023-02-18 15:26 | Outpatient (REF) | payer OTHER, SELFPAY ==
[2023-02-18 19:51] LABS: Abs Immature Grans 0.02 10^3/uL (0.0-0.06); Absolute Basophil Count 0.05 10^3/uL (0.0-0.2); Absolute Eosinophil Count 0.17 10^3/uL (0.0-0.7); Absolute Lymphocyte Count 2.33 10^3/uL (1.2-3.4); Absolute Monocyte Count 0.42 10^3/uL (0.1-0.8); Absolute Neutrophil Count 4.49 10^3/uL (1.2-6.7); Basophils % 0.7; Eosinophils % 2.3; HCT 41.3 % (36.0-46.0); HGB 12.7 g/dL (11.2-15.7); Immature Grans % 0.3; Lymphocytes % 31.1; MCH 24.8 pg (27.0-33.0); MCHC 30.8 % (32.0-36.0); MCV 81 fL (80-95); MPV 9.9 fL (8.0-11.0); Monocytes % 5.6; Platelet Count 364 10^3/uL (130-400); RBC 5.12 10^6/uL (3.93-5.22); RDW 13.7 % (11.7-14.6); RDW-SD 39.8 fL; WBC 7.48 10^3/uL (4.4-10.8)
[2023-02-18 19:54] LABS: ALT 24 U/L (14-59); AST 20 U/L (15-37); Albumin 3.4 g/dL (3.4-5.0); Alkaline Phosphatase 73 U/L (46-116); Anion Gap 7.3 mmol/L (3-11); BUN 9 mg/dL (7-18); Bilirubin, Total 0.3 mg/dL (0.2-1.0); CO2 27.7 mmol/L (21.0-32.0); CREATININE 0.9 mg/dL (0.55-1.02); Calcium 8.9 mg/dL (8.5-10.1); Chloride 105 mmol/L (98-107); Glucose 86 mg/dL (74-106); Potassium 4.2 mmol/L (3.5-5.1); Sodium 140 mmol/L (136-145); Total Protein 7.4 g/dL (6.4-8.2)
== END 2023-02-18 15:27 | disposition home or self-care (01) ==
LOC: NCHCN 15:26
PROVIDERS: PCP Physician Assistant; Visit Provider Nurse Practitioner Family
DX: R11.2 Nausea with vomiting, unspecified (principal); R10.13 Epigastric pain; R19.5 Other fecal abnormalities
CPT/HCPCS: 80053; 85025

== ENCOUNTER 2023-02-19 15:58 | Outpatient (REF) | payer OTHER, SELFPAY ==
[2023-02-20 11:00] LABS: Campylobacter PCR Negative (Negative); Salmonella PCR Negative (Negative); Shiga Toxin PCR Negative (Negative); Shigella/Enteroinvasive Ecoli Negative (Negative)
== END 2023-02-19 15:59 | disposition home or self-care (01) ==
LOC: NCHCN 15:58
PROVIDERS: PCP Physician Assistant; Visit Provider Nurse Practitioner Family
DX: R19.5 Other fecal abnormalities (principal); R10.13 Epigastric pain; R10.84 Generalized abdominal pain
CPT/HCPCS: 87505; 82272; 83630; 87177

== ENCOUNTER 2023-09-29 10:22 | Emergency (ER) | payer OTHER, SELFPAY ==
[2023-09-29 10:27] VITALS: BP 119/86; PULSE 64; RESP 18; TEMP 36.3; O2SAT 99
[2023-09-29 10:48] VITALS: BP 115/50; PULSE 66; RESP 14; TEMP 36.3; O2SAT 98
[2023-09-29] MEDS: Normal Saline 1,000 ML 1000 ML IV (10:59)
[2023-09-29] MEDS: Ondansetron 4 MG/2 ML VIAL IVP (11:00)
[2023-09-29] MEDS: Ketorolac 15 MG/ML VIAL IVP (11:00)
[2023-09-29 11:07] LABS: Abs Immature Grans 0.03 10^3/uL (0.0-0.06); Absolute Basophil Count 0.05 10^3/uL (0.0-0.2); Absolute Lymphocyte Count 1.08 10^3/uL (1.2-3.4); Absolute Monocyte Count 0.32 10^3/uL (0.1-0.8); Absolute Neutrophil Count 7.18 10^3/uL (1.2-6.7); Basophils % 0.6; Eosinophils % 2.3; HCT 39.1 % (36.0-46.0); HGB 12.5 g/dL (11.2-15.7); Immature Grans % 0.3; Lymphocytes % 12.2; MCH 25.4 pg (27.0-33.0); MCV 80 fL (80-95); MPV 9.2 fL (8.0-11.0); Monocytes % 3.6; Platelet Count 344 10^3/uL (130-400); RBC 4.92 10^6/uL (3.93-5.22); RDW 13.7 % (11.7-14.6); RDW-SD 39.8 fL; WBC 8.86 10^3/uL (4.4-10.8)
[2023-09-29 11:27] LABS: ALT 20 U/L (14-59); AST 16 U/L (15-37); Albumin 3.5 g/dL (3.4-5.0); Alkaline Phosphatase 75 U/L (46-116); Anion Gap 8.7 mmol/L (3-11); BUN 10 mg/dL (7-18); Bilirubin, Total 0.5 mg/dL (0.2-1.0); CO2 25.3 mmol/L (21.0-32.0); Calcium 8.7 mg/dL (8.5-10.1); Chloride 104 mmol/L (98-107); Estimated GFR 78.21 (mL/min/1.73m2); Glucose 217 mg/dL (74-106); Magnesium 1.8 mg/dL (1.8-2.4); Potassium 4.1 mmol/L (3.5-5.1); Sodium 138 mmol/L (136-145); Total Protein 7.7 g/dL (6.4-8.2)
--- NOTE | 2023-09-29 11:28 | W.ED.GENAD ---
Discharge Plan Disposition Patient Disposition: Home Discharge Details Clinical Impression: Crampy pain associated with menses Primary Care Provider: Gigi Brizuela ED Provider: Jamie Reagan Home Meds and New Rx's Prescriptions: No Action (DME) Aerochamber MV spacer See Dose Instructions .ROUTE .MEDSUPPLY Qty: 1 0RF Dose Instruction: As directed Rx Instructions: As directed (DME) Cherisedeann Sonia [facility] Spacer MISCELLANEOUS Discharge Instructions Additional Instructions: Please follow-up with your primary care provider for reassessment as needed. You may continue to take [id number] pain medication. At this time I do feel that your symptoms are related to your beginning of your menstrual cycle but if you have any new or significant worsening of symptoms or change in your condition return immediately to the emergency department for further testing and consideration of ultrasound if needed. Referrals: Gigi Brizuela [Primary Care Provider] - (As needed for reassessment) Discharge Data Discharge Date/Time-TO BE ENTERED AT DEPARTURE: 09/29/23 13:33 Medical Decision Making Patient presenting the emergency department for chief complaints of pelvic pain and menstrual cramping. She states that she just started her period and also got some menstrual pain and cramping. Patient reports that she does have some painful menstrual cramping at times but today seemed a little more severe. Patient did take some Tylenol and Advil prior to arrival. He is on menstrual cramping patient does state history of ovarian cysts otherwise no other contributing past medical history. Physical exam shows mild suprapubic tenderness to palpation deferred vaginal exam otherwise noncontributory exam. Vital signs are stable with no tachycardia and patient is afebrile. Pending results will give patient IV fluids and ketorolac Will plan on checking patient's status and labs but I do suspect menstrual cramping given that the symptoms started at the same time as her menses. Reviewed patient's labs and CBC is overall nondiagnostic, CMP also noncontributory patient is not and urinalysis does show high specific gravity ketones and blood but no signs of infection. Reassessed patient and patient states significant improvement. Reassessed patient she no longer has any abdominal pain or discomfort and is requesting to go home. After discussion of diagnosis and plan of care patient has no further needs, questions, or concerns and states clear understanding to return to the emergency department for any worsening symptoms. This documentation was generated using [employer] dictation system, please disregard any oddities of phrase or misspellings. Lab Data Lab results reviewed: Yes I reviewed the patient's lab results. HPI General Mode of arrival: ambulatory. Date/Time Provider Initiated Documentation: 09/29/23 10:33. Information obtained by: patient and RN notes reviewed. History of Present Illness 28 year old F presents to the emergency department with the chief complaint of Pelvic cramping and discomfort, described as moderate, Quality is described as sharp, and is localized to the abdomen and pelvis. Patient reports no radiation. Patient started experiencing this day(s) (1) and it has been constant. No relieving factors improve symptom(s), No exacerbating factors reported . Patient did receive the following treatments prior to arrival, NSAID Related Data Home Medications Medication Instructions Recorded Confirmed inhalational spacing device #1 ea 02/10/19 09/29/23 (Aerochamber MV spacer) inhalational spacing device 10/19/21 09/29/23 (OptiChamber Sonia VHC spacer) Previous Rx's Medication Instructions Recorded inhalational spacing device #1 ea 02/10/19 (Aerochamber MV spacer) Allergies Allergy/AdvReac Type Severity Reaction Status Date / Time morphine Allergy Severe Anaphylaxsi Verified 09/29/23 10:48 s sucralfate AdvReac Intermediate Constipation/Fecal Verified 09/29/23 10:48 impaction Bee Allergy Allergy Swelling Uncoded 09/29/23 10:48 General Stated Complaint: Abd Prob PERCY: 3 Review of Systems Constitutional Constitutional: Denies fever(s) and Reports poor appetite Cardiovascular Cardiovascular: Denies chest pain and Denies dyspnea Respiratory Respiratory: Denies cough and Denies dyspnea Gastrointestinal Gastrointestinal: Reports as per HPI, Reports abdominal pain, Denies melena, Denies change in bowel habits, Denies constipation, Denies diarrhea, Reports nausea and Reports vomiting Genitourinary Genitourinary: Reports as per HPI, Denies abnormal menses, Denies abnormal vaginal bleeding, Denies hematuria, Reports dysmenorrhea, Denies dysuria, Reports pelvic pain, Denies flank pain and Denies urinary incontinence Integumentary/Breasts Skin/Breast: Denies rash PFSH All Active Problems (Updated 09/29/23 @ 13:14 by Jamie Reagan NP) Crampy pain associated with menses (Acute) Urinary tract infection (Acute) Vaginal odor (Acute) Abnormal uterine bleeding (AUB) (Acute) Nausea and vomiting (Acute) Constipation (Acute) Diarrhea (Acute) Vomiting (Acute) Hidradenitis suppurativa (Acute) Hematemesis (Acute) Hematochezia (Acute) Unintentional weight loss (Acute) Microcytic hypochromic anemia (Acute) PCOS (polycystic ovarian syndrome) (Chronic) Dx'ed Se[facility]our [employer] 01/2019 Metformin started Family history of early CAD (Chronic) Father Exercise-induced asthma (Chronic) Anxiety (Chronic) Depression (Chronic) h/o Wellbutrin use, h/o prozac use; no bipolar Medical History Attempted suicide Family History Father Heart attack 37yo High cholesterol Arthritis b/l hip replacement in early 30s Mother Hypertension Anxiety Depression Diabetes Irritable bowel syndrome Paternal Grandfather High cholesterol Maternal Grandfather Diabetes Maternal Aunt Breast cancer 2 great aunts Crohn's disease Brother Aortic stenosis 17yo Social History Smoking/Tobacco Use Status: Never Smoking risk assessment performed?: Yes Alcohol Intake: current Alcohol Intake frequency: holidays/special occasions only Drug use: Occasionally Substance use type: marijuana Adopted: No Foster care: No Household members: significant other Housing: apartment Communication Needs: None Education Level: college Details: 1 yr Do you need help understanding health information?: Never 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[employer] Sexually active: Yes Do you think of yourself as: straight/heterosexual What is your relationship status?: living with partner Panel score (0-1 are the most socially isolated patients): 1 Duration: 45-60 minutes/day Frequency: 3-4 times per week Special jonathon needs: No Seatbelt use: never Helmet use: No Working smoke detector in home: Yes Carbon monox detector in home: Yes Do you feel safe at home: Yes Do you feel safe in your relationship?: Yes Female Reproductive History Menstrual control method: none History History 0 Para 0 Hx # Term Pregnancies Multiple births Hx # Pregnancies Ectopic pregnancies AB induced Hx Number of Living Children AB spontaneous Exam Const General: cooperative Orientation: alert, awake and oriented x3 Resp Effort & Inspection: normal respiratory effort and able to speak in complete sentences Auscultation: clear to auscultation bilaterally Cardio Rate: regular rate Rhythm: regular rhythm Heart Sounds: S1 normal and S2 normal GI Palpation: soft, no hepatosplenomegaly, not firm, no guarding, no masses, no pulsatile masses, not rigid, no splenomegaly and tender suprapubicly Auscultation: normal bowel sounds Back/Spine/Pelvis Back: no CVA tenderness Neuro General: patient alert, patient awake, patient oriented x3, gait normal and moves all extremities Course Vital Signs Vital signs: Vital Signs Temperature 36.3 C L 09/29/23 10:27 Pulse 64 09/29/23 10:27 Respiratory Rate 18 09/29/23 10:27 Blood Pressure 119/86 09/29/23 10:27 Pulse Oximetry 99 09/29/23 10:27 Temperature 36.3 C L 09/29/23 10:48 Temperature Source Skin 09/29/23 10:48 Pulse 66 09/29/23 10:48 Respiratory Rate 14 09/29/23 10:48 Respiratory Effort Normal 09/29/23 10:29 Blood Pressure 115/50 L 09/29/23 10:48 Blood Pressure Position Supine 09/29/23 10:48 Pulse Oximetry 98 09/29/23 10:48 Oxygen Delivery Method Room Air 09/29/23 10:48 Oxygen Flow Rate 0 09/29/23 10:27 Pain Level 5 09/29/23 11:00 Lab/Test Results Lab/Test Results: Laboratory Tests Range/Units 09/29/23 10:45 WBC (4.4-10.8) 10^3/uL 8.86 RBC (3.93-5.22) 10^6/uL 4.92 Hgb (11.2-15.7) g/dL 12.5 Hct (36.0-46.0) % 39.1 MCV (80-95) fL 80 MCH (27.0-33.0) pg 25.4 L MCHC (32.0-36.0) % 32.0 RDW (11.7-14.6) % 13.7 Plt Count (130-400) 10^3/uL 344 MPV (8.0-11.0) fL 9.2 Immature Gran % 0.3 Neutrophils % 81.0 Lymphocytes % 12.2 Monocytes % 3.6 Eosinophils % 2.3 Basophils % 0.6 Nucleated RBC % (0.0-0.3) % 0.0 Absolute Neutrophils (1.2-6.7) 10^3/uL 7.18 H Absolute Lymphocytes (1.2-3.4) 10^3/uL 1.08 L Absolute Monocytes (0.1-0.8) 10^3/uL 0.32 Absolute Eosinophils (0.0-0.7) 10^3/uL 0.20 Absolute Basophils (0.0-0.2) 10^3/uL 0.05 Sodium (136-145) mmol/L 138 Potassium (3.5-5.1) mmol/L 4.1 Chloride (98-107) mmol/L 104 Carbon Dioxide (21.0-32.0) mmol/L 25.3 Anion Gap (3-11) mmol/L 8.7 BUN (7-18) mg/dL 10 Creatinine (0.55-1.02) mg/dL 1.0 Est GFR (CKD-EPI 2020) (mL/min/1.73m2) 78.21 Glucose (74-106) mg/dL 217 H Calcium (8.5-10.1) mg/dL 8.7 Magnesium (1.8-2.4) mg/dL 1.8 Total Bilirubin (0.2-1.0) mg/dL 0.5 AST (15-37) U/L 16 ALT (14-59) U/L 20 Alkaline Phosphatase (46-116) U/L 75 Total Protein (6.4-8.2) g/dL 7.7 Albumin (3.4-5.0) g/dL 3.5
[2023-09-29 12:16] LABS: Bilirubin Small (Negative); Blood Large (Negative); Clarity Sl Cloudy (Clear); Glucose Negative (Negative); Ketones Trace mg/dL (Negative); Leukocyte Esterase Negative (Negative); Nitrite Negative (Negative); Specific Gravity >= 1.030 (1.005-1.025); Urobilinogen 0.2 mg/dL (Up to 0.2); pH 5.5 (5-8)
[2023-09-29 12:32] LABS: Bacteria Moderate HPF (Negative); C & S Indicated? No/Sq. Contamination; Casts Negative LPF (Negative); Crystals Negative HPF (Negative); Epithelial Cells Moderate HPF (Negative); Mucus Heavy (Negative); Other Cells Few Transitional (Negative); WBC 0-2 HPF (0-5)
[2023-09-29 13:19] VITALS: BP 103/63; PULSE 56; O2SAT 99
== END 2023-09-29 13:33 | disposition home or self-care (01) ==
PROVIDERS: Emergency Provider Nurse Practitioner Family; PCP Physician Assistant
DX: N94.6 Dysmenorrhea, unspecified (principal)
CPT/HCPCS: 36415; 80053; 81025; 96361; 96374; 96375; 99284; 81003; 81015; 83735; 85025; J1885; J2405

== ENCOUNTER 2023-11-01 09:08 | Emergency (ER) | payer OTHER, SELFPAY ==
[2023-11-01 09:12] VITALS: BP 172/90; PULSE 104; RESP 22; TEMP 36.9; O2SAT 97
[2023-11-01] MEDS: Acetaminophen 325 MG TAB 650 MG PO (09:22)
--- NOTE | 2023-11-01 09:31 | ED.GENADUL_ITS ---
HPI General Stated Complaint: RespSymp PERCY: 4 Date/Time Provider Initiated Documentation: 11/01/23 09:11. Limitations to Documentation: no limitations. Information obtained by: patient and RN notes reviewed. History of Present Illness cough, congestion, diarrhea, fevers/chills moderate aching (body aches) day(s) (4) constant No relieving factors improve symptom(s), No exacerbating factors reported cough, diaphoresis, fever/chills and malaise; denies chest pain, headaches, loss of appetite, nausea/vomiting, rash and shortness of breath none Related Data Home Medications Medication Instructions Recorded Confirmed inhalational spacing device #1 ea 02/10/19 11/01/23 (Aerochamber MV spacer) inhalational spacing device 10/19/21 11/01/23 (OptiChamber Sonia VHC spacer) benzonatate 200 mg capsule 200 mg PO TID PRN cough #14 caps 11/01/23 Previous Rx's Medication Instructions Recorded inhalational spacing device #1 ea 02/10/19 (Aerochamber MV spacer) benzonatate 200 mg capsule 200 mg PO TID PRN cough #14 caps 11/01/23 Allergies Allergy/AdvReac Type Severity Reaction Status Date / Time morphine Allergy Severe Anaphylaxsi Verified 11/01/23 09:14 s sucralfate AdvReac Intermediate Constipation/Fecal Verified 11/01/23 09:14 impaction Bee Allergy Allergy Swelling Uncoded 11/01/23 09:14 Review of Systems Constitutional Constitutional: Reports as per HPI Eyes Eyes: Reports as per HPI, Denies eye discharge and Denies irritation ENT Ears, Nose, Mouth, and Throat: Reports as per HPI Cardiovascular Cardiovascular: Reports as per HPI, Denies chest pain and Denies dyspnea Respiratory Respiratory: Reports as per HPI and Denies dyspnea Gastrointestinal Gastrointestinal: Reports as per HPI, Denies nausea and Denies vomiting Integumentary/Breasts Skin/Breast: Reports as per HPI and Denies rash Neurologic Neurologic: Reports as per HPI PFSH All Active Problems (Updated 11/01/23 @ 09:38 by ELIECER Arnett) Influenza B (Acute) Urinary tract infection (Acute) Vaginal odor (Acute) Abnormal uterine bleeding (AUB) (Acute) Nausea and vomiting (Acute) Constipation (Acute) Diarrhea (Acute) Vomiting (Acute) Hidradenitis suppurativa (Acute) Hematemesis (Acute) Hematochezia (Acute) Unintentional weight loss (Acute) Microcytic hypochromic anemia (Acute) PCOS (polycystic ovarian syndrome) (Chronic) Dx'ed Se[facility] 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[employer] 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 [employer]IMAL 01/2019 Metformin started Family history of early CAD (Chronic) Father Exercise-induced asthma (Chronic) Anxiety (Chronic) Depression (Chronic) h/o Wellbutrin use, h/o prozac use; no bipolar Medical History Attempted suicide Family History Father Heart attack 37yo High cholesterol Arthritis b/l hip replacement in early 30s Mother Hypertension Anxiety Depression Diabetes Irritable bowel syndrome Paternal Grandfather High cholesterol Maternal Grandfather Diabetes Maternal Aunt Breast cancer 2 great aunts Crohn's disease Brother Aortic stenosis 17yo Social History Smoking/Tobacco Use Status: Never Smoking risk assessment performed?: Yes Alcohol Intake: current Alcohol Intake frequency: holidays/special occasions only Drug use: Occasionally Substance use type: marijuana Adopted: No Foster care: No Household members: significant other Housing: apartment Communication Needs: None Education Level: college Details: 1 yr Do you need help understanding health information?: Never 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[employer] Sexually active: Yes Do you think of yourself as: straight/heterosexual What is your relationship status?: living with partner Panel score (0-1 are the most socially isolated patients): 1 Duration: 45-60 minutes/day Frequency: 3-4 times per week Special jonathon needs: No Seatbelt use: never Helmet use: No Working smoke detector in home: Yes Carbon monox detector in home: Yes Do you feel safe at home: Yes Do you feel safe in your relationship?: Yes Female Reproductive History Menstrual control method: none History History 0 Para 0 Hx # Term Pregnancies Multiple births Hx # Pregnancies Ectopic pregnancies AB induced Hx Number of Living Children AB spontaneous Exam Const General: cooperative, healthy appearing, no acute distress, well developed and well groomed Nutritional Appearance: average body habitus and well nourished Orientation: alert and awake HENMT Head: normal to inspection, normocephalic and atraumatic Ears: hearing grossly normal bilaterally, external ears normal and TM's normal bilaterally General nose exam: external nose normal and nares normal Face and sinus: normal facial exam, sinuses nontender and face symmetric Mouth: oral mucosae normal, lip normal, tongue normal, oropharynx normal and moist mucous membranes Teeth and gingiva: dentition normal Throat: posterior oropharynx normal, tonsils normal and uvula midline Eyes General: appearance normal, both eyes and all related structures Neck Neck: normal visual inspection, full ROM and no lymphadenopathy Resp Effort & Inspection: normal respiratory effort, able to speak in complete sentences and no respiratory distress Auscultation: clear to auscultation bilaterally, no rales, no rhonchi and no wheezes Cardio Rate: regular rate Rhythm: regular rhythm Heart Sounds: S1 normal and S2 normal GI Inspection: normal to inspection Palpation: soft, no hepatosplenomegaly, no guarding, no masses, not rigid and nontender Skin General skin exam: no rashes or lesions noted Neuro General: patient alert and patient awake Cognition: normal cognition Speech: speech normal Gait: normal gait Extrem General: normal to inspection, no pedal edema, no calf tenderness and normal gait Course Vital Signs Vital signs: Vital Signs Temperature 36.9 C 11/01/23 09:12 Pulse 104 H 11/01/23 09:12 Respiratory Rate 22 11/01/23 09:12 Blood Pressure 172/90 H 11/01/23 09:12 Pulse Oximetry 97 11/01/23 09:12 Temperature 36.9 C 11/01/23 09:12 Temperature Source Oral 11/01/23 09:12 Pulse 104 H 11/01/23 09:12 Respiratory Rate 22 11/01/23 09:12 Respiratory Effort Normal, Non-Labored 11/01/23 09:15 Respiratory Depth Normal 11/01/23 09:19 Blood Pressure 172/90 H 11/01/23 09:12 Blood Pressure Position Sitting 11/01/23 09:12 Pulse Oximetry 97 11/01/23 09:12 Oxygen Delivery Method Room Air 11/01/23 09:12 Oxygen Flow Rate 0 11/01/23 09:12 Pain Level 6 11/01/23 09:12 Medical Decision Making Patient is a pleasant 28-year-old female with past medical history for anxiety, depression , PCOS, presenting today with 4 days of cough, congestion, body aches, diarrhea. She reports that she is also developed some abdominal pain with coughing or deep inspiration, feels like she has injured some muscles with her forceful coughing. She not having any shortness of breath. Has not been taking any medications for symptomatic management. No analgesics today. Has been able to hydrate and eat. No bowel movements today, endorses some diarrhea yesterday which she reports is nonbloody. LMP 1 week ago. On exam, patient appears nontoxic. She was initially slightly tachycardic at 104 with heart rates now in the 60s without intervention. Hydrating orally. Normal HEENT exam, lungs are clear. Indicates the epigastric area as area of discomfort with coughing and states that this can spread with more forceful coughing. Abdominal exam is benign, no peritoneal findings or focal findings. No lower extremity edema or calf pain. Patient is influenza B positive. Discussed with patient. She is out of window for any treatment. Discussed supportive care. Will prescribe Tessalon Perles for coughing, no this is was causing her discomfort in her abdomen as she is tightening her abdominal muscles so frequently. Return precautions were discussed. Encouraged follow-up with primary care. Work note given to the patient. All of her questions and concerns were addressed and she is in agreement with this plan Quality:SDOH Health Related Social Needs: No Data to Display Discharge Plan Disposition Patient Disposition: Home Condition: Good Discharge Details Clinical Impression: Influenza B Primary Care Provider: Gigi Brizuela ED Provider: Bobbi Perez [place] Meds and New Rx's Prescriptions: New benzonatate 200 mg capsule 200 mg PO TID PRN (Reason: cough) Qty: 14 0RF Continued (DME) Aerochamber MV spacer See Dose Instructions .ROUTE .MEDSUPPLY Qty: 1 0RF Dose Instruction: As directed Rx Instructions: As directed (DME) Edgar Scott [facility] Spacer MISCELLANEOUS Discharge Instructions Instructions: Influenza (ED) Additional Instructions: You are positive for influenza B. This will give your body aches, fever, cough. Please continue to encourage hydration. Please use Tylenol and/or ibuprofen as needed for discomfort and fevers. Please take as directed on the packaging. I have also prescribed you Tessalon Perles to help with cough, please take these as prescribed. Please follow-up with your primary care in 2 weeks for reevaluation. If you are unable to stay hydrated, have increased pain, shortness of breath or difficulty breathing, or other new/worsening symptoms please seek care urgently once again. Please wash your hands to reduce spread of disease, wear mask if out. Stand Alone Forms: Work Release Referrals: Gigi Brizuela [Primary Care Provider] -
[2023-11-01] MEDS: Benzonatate 100 MG CAP PO (09:34)
[2023-11-01 09:37] VITALS: PULSE 65; O2SAT 99
[2023-11-01 09:44] VITALS: BP 151/86
== END 2023-11-01 09:44 | disposition home or self-care (01) ==
PROVIDERS: Emergency Provider Physician Assistant; PCP Physician Assistant
DX: J10.1 Influenza due to other identified influenza virus with other respiratory manifestations (principal); R05.1 Acute cough; R19.7 Diarrhea, unspecified; R52 Pain, unspecified
CPT/HCPCS: 99283

== ENCOUNTER 2024-01-07 15:00 | Outpatient (CLI) | payer OTHER, SELFPAY ==
[2024-01-07 13:32] LABS: HCT 41.2 % (36.0-46.0); HGB 13.3 g/dL (11.2-15.7); MCH 25.4 pg (27.0-33.0); MCHC 32.3 % (32.0-36.0); MCV 79 fL (80-95); MPV 8.9 fL (8.0-11.0); Platelet Count 337 10^3/uL (130-400); RBC 5.23 10^6/uL (3.93-5.22); RDW 13.6 % (11.7-14.6); RDW-SD 39.1 fL; WBC 7.09 10^3/uL (4.4-10.8)
[2024-01-07 14:50] LABS: HCG Qual (Serum) Negative
== END 2024-01-07 15:01 | disposition home or self-care (01) ==
LOC: LBO 15:01
PROVIDERS: PCP Physician Assistant; Visit Provider Nurse Practitioner Women's Health
DX: N93.9 Abnormal uterine and vaginal bleeding, unspecified (principal)
CPT/HCPCS: 36415; 85027; 84703

== ENCOUNTER 2024-01-30 15:59 | Outpatient (REF) | payer OTHER, SELFPAY ==
--- NOTE | 2024-01-30 15:00 | PAPFT_PTH ---
PATIENT: Sophie Mcclendon LOC: [facility] U#:[id number] AGE/SX: 28/F ROOM: RE01/30/[address]: Leslee Norwood DO : 1995 BED: DIS: 01/30/2024 SPEC #: [id number] RECD: 01/30/24 17:26 STATUS: BARB REQ #: [id number] KAPIL: 01/30/24 15:[address]: Leslee Norwood DEPT: [facility] Cytology RECD BY: Nicole Rock ENTERED: 01/30/24 17:26 SP TYPE: PAPFT OTHR DR: Gigi Brizuela Tissues: 1 - CX/ENDOCX FOR PAP SMEARS Procedures: PAP THIN PREP/UVM Screening HPV DNA PROBE Comments: [id number]
== END 2024-01-30 16:00 | disposition home or self-care (01) ==
LOC: LBN 15:59
PROVIDERS: PCP Physician Assistant; Visit Provider Obstetrics & Gynecology
DX: Z12.4 Encounter for screening for malignant neoplasm of cervix (principal)
CPT/HCPCS: 88142; 87624

== ENCOUNTER 2024-04-23 08:35 | Outpatient (REF) | payer OTHER, SELFPAY | END 2024-04-23 08:36 | disposition home or self-care (01) | LOC: NCHCN 08:35 | PROVIDERS: Visit Provider Nurse Practitioner Family | DX: B83.8 Other specified helminthiases | CPT/HCPCS: 87177 ==

== ENCOUNTER 2024-08-03 10:05 | Outpatient (REF) | payer OTHER, SELFPAY | END 2024-08-03 10:06 | disposition home or self-care (01) | LOC: NCHCN 10:05 | PROVIDERS: PCP Nurse Practitioner Family; Visit Provider Nurse Practitioner Family | DX: B83.9 Helminthiasis, unspecified (principal) | CPT/HCPCS: 87177 ==

== ENCOUNTER 2024-11-24 13:52 | Outpatient (REF) | payer OTHER, SELFPAY | END 2024-11-24 13:53 | disposition home or self-care (01) | LOC: LBN 13:52 | PROVIDERS: PCP Nurse Practitioner Family; Visit Provider Nurse Practitioner Women's Health | DX: N76.0 Acute vaginitis (principal) | CPT/HCPCS: 87480; 87510; 87660 ==

== ENCOUNTER 2024-12-21 14:01 | Outpatient (CLI) | payer OTHER, SELFPAY ==
--- NOTE | 2024-12-21 | DI.CT_ITS ---
Exam(s) CT HEAD WO/W EXAM: CT HEAD WO/W CLINICAL HISTORY: LOSS OF CONSCIOUSNESS, R55. TECHNIQUE: Imaging Protocol: Axial computed tomography images with coronal and sagittal reformatted images were created and reviewed. CONTRAST MATERIAL: Intravenous: Omnipaque 350 Contrast volume:100 ml COMPARISON: CT CT HEAD WO from 07/06/2020 FINDINGS: Ventricles and Extra axial spaces: Normal in size and morphology for the patient's age. Hemorrhage: None. Cerebral parenchyma: Normal. Enhancement: No suspicious enhancement. Midline shift: None. Brainstem/Cerebellum: Normal. Calvarium: Normal. Visualized Paranasal sinuses/Mastoids: Clear. IMPRESSION: Normal CT scan of the head. RADIATION DOSE DELIVERED: 1,748.77mGy.cm Total DLP DATA REPOSITORY: All CT scans at this facility are submitted to the National Radiology Data Registry (NRDR) Dose Index Registry (DIR) with the [employer] (ACR). RADIATION OPTIMIZATION: All CT scans at this facility use at least one of these dose optimization te chniques: automated exposure control; mA and/or kV adjustment per patient size (includes targeted exa ms where dose is matched to clinical indication); or iterative reconstruction.
[2024-12-21] MEDS: Normal Saline - Diluent 50 ML VIAL IJ (15:03)
[2024-12-21] MEDS: Omnipaque 350 MG/ML 100 ML BTL IJ (15:04)
[2024-12-21 16:52] LABS: Iron 21 ug/dL (50-170); Total Iron Binding Capacity 323 ug/dL (250-450); Transferrin Sat 7 % (15-50)
[2024-12-21 17:19] LABS: Ferritin 20 ng/mL (8-252); Folate 12.5 ng/mL (8.6-20.0); Glucose 82 mg/dL (74-106); Vitamin B12 522 pg/mL (193-986)
[2024-12-21 21:34] LABS: Hemoglobin A1C 5.5 % (<5.7)
[2024-12-22 01:08] LABS: NT-proBNP 151 pg/mL (<300)
== END 2024-12-21 14:21 ==
LOC: DI 14:07
PROVIDERS: PCP Nurse Practitioner Family; Visit Provider Nurse Practitioner Family
DX: T67.1XXD Heat syncope, subsequent encounter
CPT/HCPCS: 36415; 82947; 70470; 82607; 82728; 82746; 83036; 83540; 83550; 83880; J3490

== ENCOUNTER 2024-12-22 13:04 | Outpatient (CLI) | payer OTHER, SELFPAY ==
--- NOTE | 2024-12-22 14:30 | RT.EKG_ITS ---
APPROVED REPORT Exam: Resting ECG Reason for Exam: SYNCOPE Patient Location: O HR:62 bpm ECG Measurements Heart Rate 62 AXIS [place] 158 P -8 QRSd 95 QRS 57 QT 420 T 29 QTc 427 Conclusion Sinus rhythm...normal P axis, V-rate 50- 99 Baseline wander in lead(s) V3,V4,V5,V6 Normal Electrocardiogram
== END 2024-12-22 13:05 | disposition home or self-care (01) ==
PROVIDERS: PCP Nurse Practitioner Family; Visit Provider Nurse Practitioner Family
DX: R55 Syncope and collapse (principal)
CPT/HCPCS: 93005; 93010

== ENCOUNTER 2024-12-23 12:02 | Emergency (ER) | payer OTHER, SELFPAY ==
--- NOTE | 2024-12-23 12:00 | DI.RAD_ITS ---
Exam(s) XR THUMB LT EXAM: XR THUMB LT CLINICAL HISTORY: ? dislocation. TECHNIQUE: 2D digital imaging was performed. Three views. COMPARISON: None. FINDINGS: BONES: No acute fracture is present. No bony destructive lesion is seen. JOINTS: No dislocation present. SOFT TISSUE: Normal. IMPRESSION: No evidence of acute fracture, dislocation, or subluxation. DATA REPOSITORY: RADIATION DOSE DELIVERED:
[2024-12-23 12:17] VITALS: BP 143/90; PULSE 67; RESP 16; TEMP 36.6; O2SAT 96
--- NOTE | 2024-12-23 12:43 | W.ED.GENAD ---
Discharge Plan Disposition Patient Disposition: Home Condition: Good Discharge Details Clinical Impression: Pain of left thumb Primary Care Provider: Mago Rojas ED Provider: Mikki Leary Home Meds and New Rx's Prescriptions: No Action (DME) Aerochamber MV spacer See Dose Instructions .ROUTE .MEDSUPPLY Qty: 1 0RF Dose Instruction: As directed Rx Instructions: As directed albuterol sulfate 90 mcg/actuation HFA aerosol inhaler 2 inh INHALATION DAILY PRN (DME) Edgar Scott [facility] Spacer MISCELLANEOUS Discharge Instructions Additional Instructions: Your x-ray was negative, no evidence of acute fracture or dislocation. Thumb pain is likely due to a sprain, I recommend use of a finger splint for comfort. Elevate, ice, and use Tylenol/ibuprofen as needed. Follow-up with your primary care provider if your thumb continues to cause discomfort in the next 2 to 3 weeks. Referrals: Mago Rojas [Primary Care Provider] - [facility] General Date/Time Provider Initiated Documentation: 12/23/24 12:12. HPI Narrative: Sophie is a 29 year old female who presents to the emergency department today for evaluation of left distal thumb swelling and pain. She reports last night she jammed her thumb while opening up a cabinet, slept with it elevated last night, but has been increasingly sore and swollen today. She is unable to bend the thumb at the PIP or the DIP due to discomfort. Sensation is intact distally. No previous injury to this thumb. She is right-handed. No other injuries reported. No relevant past medical history. Physical exam remarkable for tenderness and swelling to left thumb. No overlying rashes, skin tears, or abrasions. No obvious ecchymosis. Sensation intact to distal thumb. Full painless range of motion to other fingers and to wrist. D/dx includes but is not limited to: Fracture, dislocation, sprain I independently interpreted the following tests: Left thumb x-ray, no dislocation, fracture, or other osseous abnormality noted. While in the emergency department, Sophie received a thumb splint. RN reviewed discharge instructions with patient, including symptomatic management, use of splint, and red flags indicating need for return to emergency care Related Data Home Medications ?Medication ?Instructions ?Recorded ?Confirmed inhalational spacing device #1 ea 02/10/19 12/23/24 (Aerochamber MV spacer) inhalational spacing device 10/19/21 12/23/24 (Edgar Sonia [facility] spacer) albuterol sulfate 90 mcg/actuation 2 inh inhalation DAILY PRN 12/23/24 12/23/24 aerosol inhaler Previous Rx's ?Medication ?Instructions ?Recorded inhalational spacing device #1 ea 02/10/19 (Aerochamber MV spacer) Allergies Allergy/AdvReac Type Severity Reaction Status Date / Time morphine Allergy Severe Anaphylaxsi Verified 12/23/24 12:17 s sucralfate AdvReac Intermediate Constipation/Fecal Verified 12/23/24 12:17 impaction Bee Allergy Allergy Swelling Uncoded 12/23/24 12:17 General Stated Complaint: Orthopedic PERCY: 3 Review of Systems Narrative: See HPI Exam Const General: cooperative, healthy appearing, comfortable, no acute distress, well developed and well groomed Nutritional Appearance: average body habitus Orientation: alert and oriented x3 Resp Effort & Inspection: normal respiratory effort and able to speak in complete sentences Extrem Left upper extremity: hand Details: normal capillary refill, neurosensory exam normal, tenderness Location: of the thumb, abnormal ROM of finger Details: unable to flex Location: of the thumb and swelling Location: of the thumb Location: at the distal phalanx (Mild); no abrasions, no lacerations, no ecchymosis, no crepitus, no foreign bodies and no puncture wound Course Vital Signs Vital signs: Vital Signs Temperature 36.6 C 12/23/24 12:17 Pulse 67 12/23/24 12:17 Respiratory Rate 16 12/23/24 12:17 Blood Pressure 143/90 H 12/23/24 12:17 Pulse Oximetry 96 12/23/24 12:17 Temperature 36.6 C 12/23/24 12:17 Temperature Source Oral 12/23/24 12:17 Pulse 67 12/23/24 12:17 Respiratory Rate 16 12/23/24 12:17 Blood Pressure 143/90 H 12/23/24 12:17 Blood Pressure Position Sitting 12/23/24 12:17 Pulse Oximetry 96 12/23/24 12:17 Oxygen Delivery Method Room Air 12/23/24 12:17 Oxygen Flow Rate 0 12/23/24 12:17 Pain Level 7 12/23/24 12:17 Medical Decision Making Imaging Data Radiologic Study: Radiologist's impression: Exam(s) XR THUMB LT EXAM: XR THUMB LT CLINICAL HISTORY: ? dislocation. TECHNIQUE: 2D digital imaging was performed. Three views. COMPARISON: None. FINDINGS: BONES: No acute fracture is present. No bony destructive lesion is seen. JOINTS: No dislocation present. SOFT TISSUE: Normal. IMPRESSION: No evidence of acute fracture, dislocation, or subluxation. Quality:SDOH Health Related Social Needs: No Data to Display PFSH All Active Problems (Updated 12/23/24 @ 12:53 by Mikki Purdy) Pain of left thumb (Acute) Vaginal odor (Acute) Abnormal uterine bleeding (AUB) (Acute) Nausea and vomiting (Acute) Constipation (Acute) Diarrhea (Acute) Vomiting (Acute) Hidradenitis suppurativa (Acute) Hematemesis (Acute) Hematochezia (Acute) Unintentional weight loss (Acute) Microcytic hypochromic anemia (Acute) PCOS (polycystic ovarian syndrome) (Chronic) Dx'ed [facility] [employer] 01/2019 Metformin started Family history of early CAD (Chronic) Father Exercise-induced asthma (Chronic) Anxiety (Chronic) Depression (Chronic) h/o Wellbutrin use, h/o prozac use; no bipolar Medical History (Updated 12/23/24 @ 12:53 by Mikki Purdy) Attempted suicide Surgical History (Updated 11/24/24 @ 13:33 by Yolanda Almaguer NP) H/O oral surgery Hx of cholecystectomy (~08/2014) ~2013 Family History Father Heart attack 37yo High cholesterol Arthritis b/l hip replacement in early 30s Mother Hypertension Anxiety Depression Diabetes Irritable bowel syndrome Paternal Grandfather High cholesterol Maternal Grandfather Diabetes Maternal Aunt Breast cancer 2 great aunts Crohn's disease Brother Aortic stenosis 17yo Social History Smoking/Tobacco Use Status: Never Smoking risk assessment performed?: Yes Alcohol Intake: current Alcohol Intake frequency: holidays/special occasions only Drug use: Occasionally Substance use type: marijuana Adopted: No Foster care: No Household members: significant other Housing: apartment Communication Needs: None Education Level: college Details: 1 yr Do you need help understanding health information?: Never current occupation: [employer] Sexually active: Yes Do you think of yourself as: straight/heterosexual What is your relationship status?: living with partner Panel score (0-1 are the most socially isolated patients): 1 Duration: 45-60 minutes/day Frequency: 3-4 times per week Special jonathon needs: No Seatbelt use: never Helmet use: No Working smoke detector in home: Yes Carbon monox detector in home: Yes Do you feel safe at home: Yes Do you feel safe in your relationship?: Yes Female Reproductive History Menstrual control method: none History History 0 Para 0 Hx # Term Pregnancies Multiple births Hx # Pregnancies Ectopic pregnancies AB induced Hx Number of Living Children AB spontaneous
== END 2024-12-23 13:13 | disposition home or self-care (01) ==
PROVIDERS: Emergency Provider Nurse Practitioner Family; PCP Nurse Practitioner Family
DX: M79.645 Pain in left finger(s) (principal); W22.8XXA Striking against or struck by other objects, initial encounter
CPT/HCPCS: 29130; 99283; 73140

== ENCOUNTER 2025-02-16 06:43 | Outpatient (CLI) | payer OTHER, SELFPAY ==
--- NOTE | 2025-02-16 11:20 | W.CARDEVENT ---
Date of service: 02/16/25 Time of Service: 11:20 Cardiac Event Recorder Referring Provider:: Skylar Frey Indications:: Syncope Cardiac Event Note: This is a cardiac event monitor. Patient was monitored for 25 days and 12 hours. Predominant rhythm was sinus. Average heart rate was 78. Minimum was 56, maximum 178. There was no atrial fibrillation, no high-grade AV block, no pauses greater than 3 seconds There were rare premature ventricular contractions. Periods of sinus tachycardia occurred which overall appeared to be asymptomatic Symptoms were reported which correlated to sinus rhythm in the 80s, sinus tachycardia at 149, sinus rhythm at 94
== END 2025-02-16 06:44 | disposition home or self-care (01) ==
LOC: CARDOPNVT 06:43
PROVIDERS: PCP Nurse Practitioner Family; Visit Provider Internal Medicine Cardiovascular Disease
DX: I47.10 Supraventricular tachycardia, unspecified; R55 Syncope and collapse
CPT/HCPCS: 93272

== ENCOUNTER 2025-02-25 08:18 | Outpatient (CLI) | payer OTHER, SELFPAY ==
--- NOTE | 2025-02-25 08:15 | RT.EKG_ITS ---
APPROVED REPORT Exam: Resting ECG Reason for Exam: tachycardia Patient Location: O HR:77 bpm ECG Measurements Heart Rate 77 AXIS MS 141 P 68 QRSd 88 QRS 41 QT 373 T 24 QTc 423 Conclusion Sinus rhythm...normal P axis, V-rate 50- 99 Baseline wander in lead(s) I,II,aVR Normal Electrocardiogram
== END 2025-02-25 08:19 | disposition home or self-care (01) ==
LOC: DI.CARD 08:22
PROVIDERS: PCP Nurse Practitioner Family; Visit Provider Internal Medicine Cardiovascular Disease
DX: R00.0 Tachycardia, unspecified (principal); R55 Syncope and collapse; Z82.49 Family history of ischemic heart disease and other diseases of the circulatory system
CPT/HCPCS: 93010

== ENCOUNTER 2025-03-18 02:11 | Outpatient (CLI) | payer OTHER, SELFPAY ==
--- NOTE | 2025-03-18 07:00 | DI.US_ITS ---
APPROVED REPORT EXAM: Comprehensive 2D, Doppler, and color-flow Echocardiogram Patient Location: Out-Patient Hydrogenation Operator: Joselin Bean RDCS (AE) Indications: Check valves, Lv function, Syncope Other Information Study Quality: Adequate Conclusion Normal left ventricular wall thickness and chamber size. Ejection fraction is 60-65%. Wall motion i s normal Normal right ventricular size and function Both atria are normal in size Trileaflet aortic valve with trace regurgitation There is no additional valvular disease Wall motion Left Ventricle The left ventricle is normal size. The left ventricular systolic function is normal. The left ventric ular ejection fraction is within the normal range. There is normal left ventricular wall thickness. T here is normal LV segmental wall motion. There is no ventricular septal defect visualized. LVEF is 60 -65%. Right Ventricle The right ventricle is normal size. The right ventricular systolic function is normal. Atria The left atrium size is normal. The right atrium size is normal. The interatrial septum is intact wit h no evidence for an atrial septal defect. Aortic Valve The aortic valve is normal in structure. Aortic valve is trileaflet. There is no aortic valvular sten osis. Trace aortic regurgitation. Mitral Valve The mitral valve is normal in structure. No evidence of mitral valve stenosis. Trace mitral regurgita tion. Tricuspid Valve The tricuspid valve is normal in structure. There is no tricuspid valve stenosis. Trace tricuspid reg urgitation. Unable to assess PA pressure. Pulmonic Valve The pulmonary valve is normal in structure. There is no pulmonic valvular stenosis. There is no pulmo nathalie valvular regurgitation. Great Vessels The aortic root is normal in size. The ascending aorta is normal in size. Aortic arch is normal in ca liber. IVC is normal in size and collapses >50% with inspiration. Pericardium There is no pericardial effusion. 2D Dimensions IVSD d PLAX 0.78 cm F: 0.6-1.0 Ao Root d 3.10 cm F: 2.7 - 3.3 LVPW d PLAX 0.80 cm F: 0.6 - 1.0 Ao Asc Diam d 2.67 cm F: 2.3 - 3.1 LVID d PLAX 4.78 cm F: 3.8 - 5.2 LVDs 3.06 cm F: 2.2 - 3.5 LV EF Teichholz 65.5 % FS 35.96 % LV EDV (Teich) 106.3 mL LV ESV (Teich) 36.7 mL M-Mode TAPSE 2.48 cm (M/F) >1.7 Auto EF LV EDV A4C 113.2 mL LV EDV A2C 158.0 mL LV EDV BP 133.1 mL LV ESV A4C 46.4 mL LV ESV A2C 56.0 mL LV ESV BP 52.5 mL LVEF(%) A4C 59.0 % LVEF(%) A2C 64.5 % LVEF(%) BP 60.6 % LV SV A4C 66.8 ml LV SV A2C 102.0 ml LV SV BP 80.6 ml LV CO A4C 3.3 L/min LV CO A2C 4.9 L/min LV CO BP 4.1 L/min HR A4C 49.05 BPM HR A2C 47.94 BPM LV EDV Index (BP) LA Volume LA Length A4C 4.8 cm LA Length A2C 4.7 cm LA Area A4C s 17.30 cm2 LA Area A2C s 15.67 cm2 LA Vol A4C A-L 52.61 mL LA Vol A2C A-L 44.32 mL LA Vol Biplane A-L 48.9 mL LA Vol/BSA A4C A-L LA Vol/BSA A2C A-L LA Vol/BSA BP A-L 22.5 mL/m2 LA Vol A4C MOD 47.7 mL LA Vol A2C MOD 41.5 mL LA Vol BP MOD 45.0 mL RA Volume RA Area A4C 10.0 cm2 RA ESV A4C (A-L) 22.6mL RA Vol/BSA A4C A-L RA Length A4C 3.7 cm RA ESV A4C (MOD) 22.4mL LV Diastology MV E' medial 0.122 (>0.07 m/s) MV E Vmax 1.20 (0.4-1.3 m/s) MV E/E' MED 9.82 (<14) MV A Vmax 0.75 (0.4-1.3 m/s) MV E' lateral 0.154 (>0.1 m/s) E/A Ratio 1.6 MV E/E' LAT 7.78 (<14) MV E' Average 0.138 m/s MV E/E'(average) 8.68 Aortic Valve AoV Vmax 1.47 m/s LVOT Vmax 1.26 m/s AoV Peak Grad 8.7 mmHg LVOT Peak Grad 6.3 mmHg AoV Area (Vmax) 2.70 cm2 LVOT VTI 0.255 m AoV VTI 0.347 m LVOT Mean Grad 3.4 mmHg AoV Mean David. 1.03 m/s LVOT SV 80.56 mL AoV Mean Grad 4.8 mmHg LVOT Diam s 2.00 cm AoV Area (VTI) 2.32 cm2 AV Regurg Peak Gr. 8.66 mmHg Velocity Ratio 0.86 Mitral Valve MV DT 190 (160-240 msec) MV Vmax TIPS 1.07 m/s MV Mean Grad 1.4 (<2mmHg) MV VTI 0.385 m Pulmonary Valve RVOT Vmax 0.91 m/s RVOT Peak Gr. 3.3 mmHg RVOT VTI 0.258 m RVOT Mean Gr. 1.6 mmHg Tricuspid Valve TV S' 0.15 m/s
== END 2025-03-18 02:31 ==
LOC: DI 02:11
PROVIDERS: PCP Nurse Practitioner Family; Visit Provider Internal Medicine Cardiovascular Disease
DX: R55 Syncope and collapse (principal); I35.0 Nonrheumatic aortic (valve) stenosis
CPT/HCPCS: 93306

== ENCOUNTER 2025-05-13 11:52 | Outpatient (CLI) | payer OTHER, SELFPAY ==
[2025-05-13 10:50] LABS: Ferritin 31 ng/mL (8-252)
[2025-05-13 11:08] LABS: Iron 35 ug/dL (50-170); Total Iron Binding Capacity 327 ug/dL (250-450); Transferrin Sat 11 % (15-50)
== END 2025-05-13 11:53 | disposition home or self-care (01) ==
LOC: LBO 11:52
PROVIDERS: PCP Nurse Practitioner Family; Visit Provider Nurse Practitioner Family
DX: D50.9 Iron deficiency anemia, unspecified (principal)
CPT/HCPCS: 36415; 82728; 83540; 83550

== ENCOUNTER 2025-06-22 15:27 | Outpatient (REF) | payer OTHER, SELFPAY | END 2025-06-22 15:28 | disposition home or self-care (01) | LOC: LBN 15:27 | PROVIDERS: PCP Nurse Practitioner Family; Visit Provider Nurse Practitioner Family | DX: B83.9 Helminthiasis, unspecified (principal) | CPT/HCPCS: 87015; 87269; 87272 ==

== ENCOUNTER 2025-07-06 15:46 | Outpatient (REF) | payer OTHER, SELFPAY | END 2025-07-06 15:47 | disposition home or self-care (01) | LOC: LBN 15:46 | PROVIDERS: PCP Nurse Practitioner Family; Visit Provider Nurse Practitioner Women's Health | DX: N76.0 Acute vaginitis (principal) | CPT/HCPCS: 87480; 87510; 87660 ==

== ENCOUNTER 2025-07-23 12:40 | Outpatient (CLI) | payer OTHER, SELFPAY ==
[2025-07-23 11:35] LABS: Abs Immature Grans 0.02 10^3/uL (0.0-0.06); HCT 37.5 % (36.0-46.0); HGB 11.7 g/dL (11.2-15.7); Immature Grans % 0.3 %; MCH 24.1 pg (27.0-33.0); MCHC 31.2 % (32.0-36.0); MCV 77 fL (80-95); MPV 9.0 fL (8.0-11.0); Platelet Count 365 10^3/uL (130-400); RBC 4.85 10^6/uL (3.93-5.22); RDW 14.1 % (11.7-14.6); RDW-SD 39.6 fL; WBC 7.94 10^3/uL (4.4-10.8)
[2025-07-23 11:38] LABS: ESR 33 mm/hr (0-20)
[2025-07-23 12:42] LABS: ALT 19 U/L (14-59); AST 13 U/L (15-37); Albumin 3.6 g/dL (3.4-5.0); Alkaline Phosphatase 77 U/L (46-116); Anion Gap 6.3 mmol/L (3-11); BUN 10 mg/dL (7-18); Bilirubin, Total 0.4 mg/dL (0.2-1.0); CO2 29.7 mmol/L (21.0-32.0); Calcium 8.8 mg/dL (8.5-10.1); Chloride 104 mmol/L (98-107); Estimated GFR 100.96 (mL/min/1.73m2); Glucose 91 mg/dL (74-106); NT-proBNP 61 pg/mL (<300); Potassium 3.9 mmol/L (3.5-5.1); Sodium 140 mmol/L (136-145); TSH (W/Ref FT4) 1.10 uIU/mL (0.36-3.74); Total Protein 7.7 g/dL (6.4-8.2)
[2025-07-23 13:08] LABS: Ferritin 19 ng/mL (8-252)
[2025-07-23 13:21] LABS: Iron 21 ug/dL (50-170); Total Iron Binding Capacity 326 ug/dL (250-450); Transferrin Sat 6 % (15-50)
== END 2025-07-23 12:41 | disposition home or self-care (01) ==
LOC: LBO 12:40
PROVIDERS: PCP Nurse Practitioner Family
DX: Z01.89 Encounter for other specified special examinations (principal)
CPT/HCPCS: 36415; 80053; 85652; 82728; 83540; 83550; 83880; 84443; 85025

== ENCOUNTER 2025-08-10 23:21 | Emergency (ER) | payer OTHER, SELFPAY ==
[2025-08-10 23:25] VITALS: BP 145/87; PULSE 86; RESP 18; TEMP 36.8; O2SAT 100
[2025-08-10] MEDS: diazePAM 5 MG TAB 10 MG PO (23:52)
[2025-08-10] MEDS: Bupivacaine 0.5% Pres-Free 30 ML VIAL IJ (23:53)
--- NOTE | 2025-08-11 00:16 | W.ED.GENAD ---
Discharge Plan Disposition Patient Disposition: Home Condition: Good Discharge Details Clinical Impression: Acute torticollis Primary Care Provider: Mago Rojas ED Provider: Son Lindsay Home Meds and New Rx's Prescriptions: New lidocaine [Lidoderm] 5 % adhesive patch,medicated 1 patch Topical Q24H Qty: 15 0RF No Action (DME) Aerochamber MV spacer See Dose Instructions .ROUTE .MEDSUPPLY Qty: 1 0RF Dose Instruction: As directed Rx Instructions: As directed ferrous gluconate 324 mg (37.5 mg iron) tablet 324 mg PO DAILY albuterol sulfate 90 mcg/actuation HFA aerosol inhaler 2 inh INHALATION DAILY PRN (DME) OptiCnadjaber Sonia [facility] Spacer MISCELLANEOUS cyclobenzaprine 5 mg tablet 5 mg PO TID PRN Discharge Instructions Instructions: Torticollis, Adult Additional Instructions: At this time your symptoms are consistent with torticollis which is a spasm of your sternocleidomastoid muscle in your right neck. In addition to this you have a bit of a spasm of your splenius muscle in the back of your neck. Please apply the Lidoderm patches as prescribed. Please take 10 mg of the cyclobenzaprine every 8 hours. Do not take it when driving or operating any vehicles or heavy machinery, swimming, taking long baths, or operating firearms. Please use a heating pad as often as possible on your neck. Perform daily gentle stretches on your neck. Please continue to take the Tylenol and Motrin. You can take 1000 mg of Tylenol every 6 hours and 600 mg of ibuprofen every 6 hours. Please contact the physical therapist to set up an appointment to continue outpatient physical therapy. If you notice any worsening of your symptoms, or any new symptoms such as vomiting, diarrhea, fever, chills, shortness of breath, chest pain, numbness, weakness, or fainting , please return immediately to the emergency department for reevaluation. Please follow up with your primary care provider as soon as possible for reassessment and reevaluation. As always, it was a pleasure participating in your medical care today. Stand Alone Forms: Physical Therapy Referral, Work Release Referrals: Mago Rojas [Primary Care Provider, Medicine] [facility] General Date/Time Provider Initiated Documentation: 08/10/25 23:32. HPI Narrative: 30-year-old female with past medical history of PCOS, hidradenitis suppurativa, reactive airway disease, but no other significant past medical history presents today for evaluation of neck pain and spasm. 4 days ago the patient was yawning, immediately after which she developed a charley horse sensation in her right neck over the sternocleidomastoid. Since then the pain and spasm has been persistent and worsening. She tried NSAID therapy without any improvement. She went to see her primary care provider over the last 48 hours and was prescribed cyclobenzaprine. She took 1 pill this morning and it did not improve her symptoms at all. Pain is made worse whenever she tries to move her neck in any direction. It is improved when she is sitting upright. She denies numbness or tingling. No vision changes. No trauma to the neck. No fever or chills. No headache. No arm or chest pain. No tearing or ripping sensation. No other complaints at this time. Related Data Home Medications ?Medication ?Instructions ?Recorded ?Confirmed inhalational spacing device #1 ea 02/10/19 07/06/25 (Aerochamber MV spacer) inhalational spacing device 10/19/21 07/06/25 (Edgar Scott [facility] spacer) albuterol sulfate 90 mcg/actuation 2 inh inhalation DAILY PRN 12/23/24 08/10/25 aerosol inhaler ferrous gluconate 324 mg (37.5 mg 324 mg PO DAILY 01/14/25 08/10/25 iron) tablet cyclobenzaprine 5 mg tablet 5 mg PO TID PRN 08/10/25 08/10/25 lidocaine 5 % topical patch 1 patch topical Q24H #15 ea 08/11/25 (Lidoderm) Previous Rx's ?Medication ?Instructions ?Recorded inhalational spacing device #1 ea 02/10/19 (Aerochamber MV spacer) lidocaine 5 % topical patch 1 patch topical Q24H #15 ea 08/11/25 (Lidoderm) Allergies Allergy/AdvReac Type Severity Reaction Status Date / Time morphine Allergy Severe Anaphylaxsi Verified 08/10/25 23:30 s sucralfate AdvReac Intermediate Constipation/Fecal Verified 08/10/25 23:30 impaction Bee Allergy Allergy Swelling Uncoded 08/10/25 23:30 General Stated Complaint: Headache PERCY: 3 Exam Narrative Exam Narrative: 1.Const: Well-nourished, Well-developed, appearing stated age 2.Eyes: PERRL, no conjunctival injection, and symmetrical lids. 3.ENT: Atraumatic external nose and ears. Moist MM. Neck: Symmetric, trachea midline, No thyromegaly. 4.CVS: +S1/S2, Peripheral pulses 2+ and equal in all extremities. Brisk capillary refill in all extremities. 5.RESP: Unlabored respiratory effort. Clear to auscultation bilaterally. No wheezes rales or rhonchi 6.GI: Soft, Nontender/Nondistended, No hepatosplenomegaly. No guarding or rebound. 7.MSK: Normocephalic/Atraumatic, Extremities w/o deformity or ttp No cyanosis or clubbing, Normal movement of all extremities Patient demonstrates notable spasm of the right sternocleidomastoid, neck is sidebent to the right with a leftward rotation. Mild spasm over the right splenius musculature, as well as levator scapula musculature. No significant spasm for the left neck musculature. 8.Skin: Warm, Dry. No rashes or lesions. 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 Sensation grossly intact, no focal neurologic deficits. 10.Psych: (AAO) x3. Appropriate mood and affect Course Vital Signs Vital signs: Vital Signs Temperature 36.8 C 08/10/25 23:25 Pulse 86 08/10/25 23:25 Respiratory Rate 18 08/10/25 23:25 Blood Pressure 145/87 H 08/10/25 23:25 Pulse Oximetry 100 08/10/25 23:25 Temperature 36.8 C 08/10/25 23:25 Temperature Source Oral 08/10/25 23:25 Pulse 86 08/10/25 23:25 Respiratory Rate 18 08/10/25 23:25 Blood Pressure 145/87 H 08/10/25 23:25 Pulse Oximetry 100 08/10/25 23:25 Oxygen Delivery Method Room Air 08/10/25: Oxygen Flow Rate 0 08/10/25 23:25 Pain Level 8 08/10/25 23:25 Procedure Joint Aspiration/Injection Date of Procedure: 08/11/25 Time of procedure: 02:04 Provider that performed the procedure: Son Lindsay Indication: Other (Muscle spasm) Standard Time Out Performed: No Patient Consented: Verbally Local Anesthetic: Bupivicaine 0.5% Amount of anesthetic used(mL): 10 Ultrasound: Not used Joint Aspirated: Other (Right neck) Patient Tolerated Procedure: well and no complications Procedure Description/Note: 2x 5 mL boluses were were administered to the maximum point of tenderness at the cranial base of the sternocleidomastoid and the nuchal point for the splenius muscles. Patient tolerated this well. Medical Decision Making 30-year-old female with past medical history of PCOS, hidradenitis suppurativa, reactive airway disease, but no other significant past medical history presents today for evaluation of neck pain and spasm. 4 days ago the patient was yawning, immediately after which she developed a charley horse sensation in her right neck over the sternocleidomastoid. Since then the pain and spasm has been persistent and worsening. She tried NSAID therapy without any improvement. She went to see her primary care provider over the last 48 hours and was prescribed cyclobenzaprine. She took 1 pill this morning and it did not improve her symptoms at all. Pain is made worse whenever she tries to move her neck in any direction. It is improved when she is sitting upright. She denies numbness or tingling. No vision changes. No trauma to the neck. No fever or chills. No headache. No arm or chest pain. No tearing or ripping sensation. No other complaints at this time. Exam demonstrates a well-appearing female with notable torticollis and spasm SCM as well as spasm and splenius musculature of the right neck. No bruits, no neurologic deficits, no fever or chills, no headache to suggest meningitis. Symptoms appear most concerning for muscle spasm and torticollis. Will give Valium and perform bupivacaine tender point injection. Will hold on any imaging at this time as there is no evidence of neurovascular compromise otherwise. Will monitor closely and reassess. No evidence to suggest vertebral artery dissection, osseous fracture, or abscess. No mass effect to suggest tumor. 2:05 AM On reassessment after the injection and the Valium the patient is feeling much better. Neck spasm is notably improved. Range of motion is notably improved. Pain has notably improved. Symptoms appear consistent with mild to moderate torticollis. Will recommend continued NSAIDs at home, will recommend increasing Flexeril dosing to 10 mg every 8 hours, Lidoderm patches, and physical therapy outpatient. Patient understands. Patient was picked up by her significant other, and driven home. Discussed red flags for which to return. I have extensively reviewed the treatment plan and discharge instructions with the patient. I have addressed all patient concerns at this time. The patient was made aware of what symptoms to monitor for that would warrant a return to the emergency department. Discussed the plan with the patient, they demonstrate verbal understanding and agreement with our assessment and plan at this time. The documentation in this chart was dictated using [employer] dictation software. Please excuse any dictation errors. 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 Family history of early CAD (Chronic) Father Exercise-induced asthma (Chronic) Anxiety (Chronic) Depression (Chronic) h/o Wellbutrin use, h/o prozac use; no bipolar Medical History Attempted suicide Surgical History H/O oral surgery Hx of cholecystectomy (~08/2014) ~2013 Family History Father Heart attack 37yo High cholesterol Arthritis b/l hip replacement in early 30s Mother Hypertension Anxiety Depression Diabetes Irritable bowel syndrome Paternal Grandfather High cholesterol Maternal Grandfather Diabetes Maternal Aunt Breast cancer 2 great aunts Crohn's disease Brother Aortic stenosis 17yo Social History Smoking/Tobacco Use Status: Never Smoking risk assessment performed?: Yes Alcohol Intake: current Alcohol Intake frequency: holidays/special occasions only Drug use: Occasionally Substance use type: marijuana Adopted: No Foster care: No Household members: significant other Housing: apartment Communication Needs: None Education Level: college Details: 1 yr Do you need help understanding health information?: Never current occupation: [employer] Sexually active: Yes Do you think of yourself as: straight/heterosexual What is your relationship status?: living with partner Panel score (0-1 are the most socially isolated patients): 1 Duration: 45-60 minutes/day Frequency: 3-4 times per week Special jonathon needs: No Seatbelt use: never Helmet use: No Working smoke detector in home: Yes Carbon monox detector in home: Yes Do you feel safe at home: Yes Do you feel safe in your relationship?: Yes Female Reproductive History Menstrual control method: none History History 0 Para 0 Hx # Term Pregnancies Multiple births Hx # Pregnancies Ectopic pregnancies AB induced Hx Number of Living Children AB spontaneous
[2025-08-11] MEDS: Lidocaine 5% Patch 1 PATCH TP (02:02)
[2025-08-11 02:06] VITALS: BP 144/79; PULSE 60; RESP 18; O2SAT 100
== END 2025-08-11 02:06 | disposition home or self-care (01) ==
PROVIDERS: Emergency Provider Student in an Organized Health Care Education/Training Program; PCP Nurse Practitioner Family
DX: M43.6 Torticollis (principal)
CPT/HCPCS: 99283 ×2; J0665

== ENCOUNTER 2025-08-17 08:41 | Emergency (ER) | payer OTHER, SELFPAY ==
[2025-08-17 08:42] VITALS: BP 168/77; PULSE 64; RESP 15; O2SAT 98
--- NOTE | 2025-08-17 09:00 | DI.RAD_ITS ---
Exam(s) XR CHEST 2V PA LATERAL EXAM: XR CHEST 2V PA LATERAL CLINICAL HISTORY: neck pain, chills TECHNIQUE: 2D digital imaging was performed of the chest. Two images were obtained. PA and lateral views were obtained. COMPARISON: No exams were available for comparison FINDINGS: MEDIASTINUM: Normal. HEART: Normal. PULMONARY VASCULATURE: Normal. LUNGS: Clear. PLEURAL SPACE: No pleural effusion or pneumothorax. BONE:Within normal limits for the patient's age. OTHER FINDINGS:Normal. IMPRESSION: No acute pulmonary findings. DATA REPOSITORY: RADIATION DOSE DELIVERED:
--- NOTE | 2025-08-17 09:01 | DI.CT_ITS ---
Exam(s) CT NECK W CT CERVICAL SPINE RECONS EXAM: CT NECK W and CT cervical spine recons CLINICAL HISTORY: R submandibular pain, chills, cervical pain,chills. TECHNIQUE: Imaging Protocol: Axial computed tomography images with coronal and sagittal reformatted images were created and reviewed. CONTRAST MATERIAL: Intravenous: Omnipaque 350 Contrast volume:100mL COMPARISON: There are no priors for comparison. FINDINGS: Visualized intracranial structures: Within normal limits. Orbits and orbital soft tissues: Within normal limits. Visualized paranasal sinuses: Within normal limits. Pharynx: There is some fullness of the right tonsils with mild mass effect on the airway. This may represent a right tonsillitis. No focal fluid collection is seen to suggest a abscess. Larynx: Within normal limits. Retropharyngeal space: Within normal limits. Parotids/submandibular: Within normal limits. Thyroid gland: Within normal limits. Lymphadenopathy: There are small reactive lymph nodes seen in the submandibular region bilaterally. Trachea: Within normal limits. Lung apices: Within normal limits. Bones: Within normal limits for the patient's age. Carotids/Jugular: Within normal limits. Soft tissues: Within normal limits. CT scan of cervical spine recons: There is no acute fracture or subluxation. There is mild reversal of the normal cervical lordosis centered at C6-C7. The vertebral bodies, disc spaces and posterior elements are well maintained. No CT findings to suggest discitis. IMPRESSION: 1. Mild fullness of the right tonsils which may reflect a mild tonsillitis. There is no focal fluid collections to suggest an abscess. Please correlate clinically. 2. No acute fracture or subluxation is seen in the cervical spine. There are no CT findings to suggest discitis. RADIATION DOSE DELIVERED: 327.82mGy.cm Total DLP 327.82mGy.cm Total DLP DATA REPOSITORY: All CT scans at this facility are submitted to the National Radiology Data Registry (NRDR) Dose Index Registry (DIR) with the [employer] (A[employer]). RADIATION OPTIMIZATION: All CT scans at this facility use at least one of these dose optimization techniques: automated exposure control; mA and/or kV adjustment per patient size (includes targeted exams where dose is matched to clinical indication); or iterative reconstruction.
[2025-08-17 10:12] LABS: Abs Immature Grans 0.02 10^3/uL (0.0-0.06); HCT 38.1 % (36.0-46.0); HGB 12.0 g/dL (11.2-15.7); Immature Grans % 0.3 %; MCH 24.1 pg (27.0-33.0); MCHC 31.5 % (32.0-36.0); MCV 77 fL (80-95); MPV 8.9 fL (8.0-11.0); Platelet Count 361 10^3/uL (130-400); RBC 4.97 10^6/uL (3.93-5.22); RDW 13.7 % (11.7-14.6); RDW-SD 38.3 fL; WBC 6.25 10^3/uL (4.4-10.8)
[2025-08-17 10:14] LABS: ESR 28 mm/hr (0-20)
[2025-08-17] MEDS: Ketorolac 15 MG/ML VIAL 7.5 MG IVP (10:21)
[2025-08-17 10:29] LABS: ALT 20 U/L (14-59); AST 19 U/L (15-37); Albumin 3.6 g/dL (3.4-5.0); Alkaline Phosphatase 93 U/L (46-116); Anion Gap 10.0 mmol/L (3-11); BUN 8 mg/dL (7-18); Bilirubin, Total 1.1 mg/dL (0.2-1.0); C-Reactive Protein 2.61 mg/dL (<or=0.5); CO2 27.0 mmol/L (21.0-32.0); Calcium 8.9 mg/dL (8.5-10.1); Chloride 103 mmol/L (98-107); Estimated GFR 100.96 (mL/min/1.73m2); Glucose 80 mg/dL (74-106); Potassium 4.0 mmol/L (3.5-5.1); Sodium 140 mmol/L (136-145); Total Protein 8.1 g/dL (6.4-8.2)
[2025-08-17] MEDS: Normal Saline - Diluent 50 ML VIAL IJ (10:42)
[2025-08-17] MEDS: Omnipaque 350 MG/ML 500 ML BTL-Imaging package IJ (10:42)
[2025-08-17] MEDS: Normal Saline Flush 10 ML SYR IVP (10:42)
[2025-08-17 12:48] VITALS: BP 132/94; PULSE 52; RESP 18; TEMP 36.8; O2SAT 100
--- NOTE | 2025-08-17 13:38 | W.ED.GENAD ---
Discharge Plan Disposition Patient Disposition: Home Discharge Details Clinical Impression: Sternocleidomastoid muscle tenderness Primary Care Provider: Jaclyn Mccann ED Provider: Nicole Holley Home Meds and New Rx's Prescriptions: New diazepam [Valium] 5 mg tablet 5 mg PO BID PRNQty: 10 0RF diclofenac sodium 1 % gel 4 g topical QID Qty: 100 0RF Rx Instructions: apply to single knee, ankle, foot; for foot includes sole/toes/top of foot prednisone 20 mg tablet 40 mg PO ONCE Qty: 10 0RF Continued (DME) Aerochamber MV spacer See Dose Instructions .ROUTE .MEDSUPPLY Qty: 1 0RF Dose Instruction: As directed Rx Instructions: As directed ferrous gluconate 324 mg (37.5 mg iron) tablet 324 mg PO DAILY albuterol sulfate 90 mcg/actuation HFA aerosol inhaler 2 inh INHALATION DAILY PRN (DME) OptiChamber Sonia [facility] Spacer MISCELLANEOUS cyclobenzaprine 5 mg tablet 5 mg PO TID PRN Patient Comments: Has not been taking it- it is not helping lidocaine [Lidoderm] 5 % adhesive patch,medicated 1 patch Topical Q24H Qty: 15 0RF Discharge Instructions Additional Instructions: take prednisone as prescribed take valium as needed for muscle pain, this can be addictive and you should not take with alcohol, please don't drive for 8 hours after taking this medication you may apply the diclofenac topically please return with fever, worsening pain, difficulty swallowing, or should any new concerns arise recheck with pcp in 3 days Stand Alone Forms: Work Release Referrals: Jaclyn Mccann PA [Primary Care Provider, Medicine] Discharge Data Discharge Date/Time-TO BE ENTERED AT DEPARTURE: 08/17/25 12:51 HPI General Date/Time Provider Initiated Documentation: 08/17/25 08:42. HPI Narrative: 30-year-old female presents with right lateral and posterior pain. She states she was evaluated at our facility and had a trigger point injection already. She states she presents here secondary to see physical therapy this morning encouraging her to be reevaluated. Patient states she is having persistent pain although she has not been taking the Flexeril that she was prescribed. She had a mild headache which already been is in the paraspinal muscles in the right lateral neck. She states pain is worsened with rotation. She states that lowering her head to her chest does not significantly exacerbate the pain. She denies any sensation changes to her extremities. Denies history of illicit substance use. Denies history of similar symptoms in the past. Symptoms have been present for the past 2 weeks. Good Related Data Home Medications ?Medication ?Instructions ?Recorded ?Confirmed inhalational spacing device #1 ea 02/10/19 08/17/25 (Aerochamber MV spacer) inhalational spacing device 10/19/21 08/17/25 (OptiCnadjaber Sonia [facility] spacer) albuterol sulfate 90 mcg/actuation 2 inh inhalation DAILY PRN 12/23/24 08/17/25 aerosol inhaler ferrous gluconate 324 mg (37.5 mg 324 mg PO DAILY 01/14/25 08/17/25 iron) tablet cyclobenzaprine 5 mg tablet 5 mg PO TID PRN 08/10/25 08/17/25 lidocaine 5 % topical patch 1 patch topical Q24H #15 ea 08/11/25 08/17/25 (Lidoderm) diazepam 5 mg tablet (Valium) 5 mg PO BID PRN #10 tabs 08/17/25 diclofenac sodium 1 % topical gel 4 g topical QID #100 grams 08/17/25 prednisone 20 mg tablet 40 mg (2 x 20 mg) PO ONCE #10 tabs 08/17/25 Previous Rx's ?Medication ?Instructions ?Recorded inhalational spacing device #1 ea 02/10/19 (Aerochamber MV spacer) lidocaine 5 % topical patch 1 patch topical Q24H #15 ea 08/11/25 (Lidoderm) diazepam 5 mg tablet (Valium) 5 mg PO BID PRN #10 tabs 08/17/25 diclofenac sodium 1 % topical gel 4 g topical QID #100 grams 08/17/25 prednisone 20 mg tablet 40 mg (2 x 20 mg) PO ONCE #10 tabs 08/17/25 Allergies Allergy/AdvReac Type Severity Reaction Status Date / Time morphine Allergy Severe Anaphylaxsi Verified 08/17/25 08:46 s sucralfate AdvReac Intermediate Constipation/Fecal Verified 08/17/25 08:46 impaction Bee Allergy Allergy Swelling Uncoded 08/17/25 08:46 General Stated Complaint: Nk/Back Pain PERCY: 3 Exam Narrative Exam Narrative: Reproducible tenderness over the right SCM muscle, right great tendon. Patient decreased right lateral motion of head secondary to pain, no specific point tenderness over the occipital, paraspinal tenderness to tenderness over the AC joint no rashes or lesions noticed. Right submandibular tenderness without obvious swelling noted, oropharynx patent uvula midline no trismus. No rashes or lesions no meningismus Course Vital Signs Vital signs: Vital Signs Pulse 64 08/17/25 08:42 Respiratory Rate 15 08/17/25 08:42 Blood Pressure 168/77 H 08/17/25 08:42 Pulse Oximetry 98 08/17/25 08:42 Temperature 36.8 C 08/17/25 12:48 Pulse 52 L 08/17/25 12:48 Respiratory Rate 18 08/17/25 12:48 Blood Pressure 132/94 H 08/17/25 12:48 Pulse Oximetry 100 08/17/25 12:48 Pain Level 2 08/17/25 12:48 Lab/Test Results Lab/Test Results: 08/17/25 10:20 Blood Blood Culture - Pending 08/17/25 10:00 Blood Blood Culture - Pending Laboratory Tests Range/Units 08/17/25 10:00 WBC (4.4-10.8) 10^3/uL 6.25 RBC (3.93-5.22) 10^6/uL 4.97 Hgb (11.2-15.7) g/dL 12.0 Hct (36.0-46.0) % 38.1 MCV (80-95) fL 77 L MCH (27.0-33.0) pg 24.1 L MCHC (32.0-36.0) % 31.5 L RDW (11.7-14.6) % 13.7 Plt Count (130-400) 10^3/uL 361 MPV (8.0-11.0) fL 8.9 Immature Gran % % 0.3 Neutrophils % % 66.6 Lymphocytes % % 28.2 Monocytes % % 3.8 Eosinophils % % 0.8 Basophils % % 0.3 Nucleated RBC % (0.0-0.3) % 0.0 Absolute Neutrophils (1.2-6.7) 10^3/uL 4.16 Absolute Lymphocytes (1.2-3.4) 10^3/uL 1.76 Absolute Monocytes (0.1-0.8) 10^3/uL 0.24 Absolute Eosinophils (0.0-0.7) 10^3/uL 0.05 Absolute Basophils (0.0-0.2) 10^3/uL 0.02 ESR (0-20) mm/hr 28 H VBG Lactate (<or=2.0) mmol/L 1.0 Sodium (136-145) mmol/L 140 Potassium (3.5-5.1) mmol/L 4.0 Chloride (98-107) mmol/L 103 Carbon Dioxide (21.0-32.0) mmol/L 27.0 Anion Gap (3-11) mmol/L 10.0 BUN (7-18) mg/dL 8 Creatinine (0.55-1.02) mg/dL 0.8 Est GFR (CKD-EPI 2020) (mL/min/1.73m2) 100.96 Glucose (74-106) mg/dL 80 Calcium (8.5-10.1) mg/dL 8.9 Total Bilirubin (0.2-1.0) mg/dL 1.1 H AST (15-37) U/L 19 ALT (14-59) U/L 20 Alkaline Phosphatase (46-116) U/L 93 C-Reactive Protein (<or=0.5) mg/dL 2.61 H Total Protein (6.4-8.2) g/dL 8.1 Albumin (3.4-5.0) g/dL 3.6 POC- Test(urine) Negative Medical Decision Making Results: CBC, CMP, inflammatory markers checked without significant acute abnormality, CRP 2, CT neck and cervical spine per radiology interpretation my review do not show significant acute abnormality Assessment and plan: 30-year-old female presenting with report of right lateral neck tenderness. CT is reassuring as are labs. Will place patient on Valium and prednisone improving. Work note supplied if needed. Low clinical suspicion for meningitis, discitis, Robbins ominous pathologies. Recheck on Saturday with primary care physician encouraged. return precautions reviewed and patient expressed understanding PFSH All Active Problems (Updated 08/17/25 @ 12:11 by ELIECER Awad) Sternocleidomastoid muscle tenderness (Acute) Acute torticollis (Acute) Syncope (Chronic) Vaginal odor (Acute) Abnormal uterine bleeding (AUB) (Acute) Nausea and vomiting (Acute) Constipation (Acute) Diarrhea (Acute) Vomiting (Acute) Hidradenitis suppurativa (Acute) Hematemesis (Acute) Hematochezia (Acute) Unintentional weight loss (Acute) Microcytic hypochromic anemia (Acute) PCOS (polycystic ovarian syndrome) (Chronic) Dx'ed [facility] [employer] 01/2019 Metformin started Family history of early CAD (Chronic) Father Exercise-induced asthma (Chronic) Anxiety (Chronic) Depression (Chronic) h/o Wellbutrin use, h/o prozac use; no bipolar Medical History Attempted suicide Surgical History H/O oral surgery Hx of cholecystectomy (~08/2014) ~2013 Family History Father Heart attack 37yo High cholesterol Arthritis b/l hip replacement in early 30s Mother Hypertension Anxiety Depression Diabetes Irritable bowel syndrome Paternal Grandfather High cholesterol Maternal Grandfather Diabetes Maternal Aunt Breast cancer 2 great aunts Crohn's disease Brother Aortic stenosis 17yo Social History Smoking/Tobacco Use Status: Never Smoking risk assessment performed?: Yes Alcohol Intake: current Alcohol Intake frequency: holidays/special occasions only Drug use: Occasionally Substance use type: marijuana Adopted: No Foster care: No Household members: significant other Housing: apartment Communication Needs: None Education Level: college Details: 1 yr Do you need help understanding health information?: Never 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[employer] Sexually active: Yes Do you think of yourself as: straight/heterosexual What is your relationship status?: living with partner Panel score (0-1 are the most socially isolated patients): 1 Duration: 45-60 minutes/day Frequency: 3-4 times per week Special jonathon needs: No Seatbelt use: never Helmet use: No Working smoke detector in home: Yes Carbon monox detector in home: Yes Do you feel safe at home: Yes Do you feel safe in your relationship?: Yes Female Reproductive History Menstrual control method: none History History 0 Para 0 Hx # Term Pregnancies Multiple births Hx # Pregnancies Ectopic pregnancies AB induced Hx Number of Living Children AB spontaneous
== END 2025-08-17 12:51 | disposition home or self-care (01) ==
PROVIDERS: Emergency Provider Physician Assistant
DX: M79.12 Myalgia of auxiliary muscles, head and neck (principal)
CPT/HCPCS: 99283; 99285; 81025; 36415; 96374; 70491; 72125; 80053; 85652; 87040; 71046; 83605; 85025; 86140; J1885

== ENCOUNTER 2025-10-19 07:53 | Emergency (ER) | payer OTHER, SELFPAY ==
[2025-10-19 08:00] VITALS: BP 170/87; PULSE 58; RESP 12; TEMP 36.5; O2SAT 99
--- NOTE | 2025-10-19 08:15 | ED.GENADUL_ITS ---
Discharge Plan Disposition Patient Disposition: Home Condition: Stable Discharge Details Clinical Impression: Shingles Primary Care Provider: Jaclyn Mccann ED Provider: Son Valdes Home Meds and New Rx's Prescriptions: New valacyclovir 1 gram tablet 1,000 mg PO TID 10 Days Qty: 30 0RF prednisone 20 mg tablet 40 mg PO DAILY 5 Days Qty: 10 0RF Continued (DME) Aerochamber MV spacer See Dose Instructions .ROUTE .MEDSUPPLY Qty: 1 0RF Dose Instruction: As directed Rx Instructions: As directed ferrous gluconate 324 mg (37.5 mg iron) tablet 324 mg PO DAILY albuterol sulfate 90 mcg/actuation HFA aerosol inhaler 2 inh INHALATION DAILY PRN diclofenac sodium 1 % gel 4 g topical QID Qty: 100 0RF Rx Instructions: apply to single knee, ankle, foot; for foot includes sole/toes/top of foot (DME) Edgar Sonia C Spacer MISCELLANEOUS Discharge Instructions Instructions: Prednisone, Valacyclovir, Shingles Additional Instructions: You were seen in the emergency department for the painful rash on your left neck, this is consistent with a shingles outbreak, this is a reactivation of the chickenpox virus, we are starting you on an antiviral called valacyclovir as well as prednisone, please take these as directed. Please use therapeutic dosing of Tylenol (acetamenophen) & Advil (ibuprofen) in an alternating fashion as follows: Take 1000mg of Tylenol every 6 hours without missing doses- that is 4 times per day. Long Term in between the Tylenol dosings, take 400-600mg of Advil also on a 6 hour schedule, that is also 4 times per day. The daily maximum dosing of Tylenol is 4000mg, and the daily maximum dosing of Advil is 2400mg. This is safe to do for weeks. Please note that some common cold medications & prescription pain medications may contain acetamenophen and you need to read OTC drug labels and factor that in to maximum daily dosings. You can research homeopathic remedies for the rash, 1 complication of shingles is lingering pain after the rash has cleared called postherpetic neuralgia, please return to the emergency department immediately for any facial paralysis or increasing eye pain. Stand Alone Forms: Portal Information Referrals: Jaclyn Mccann PA [Primary Care Provider, Medicine] Discharge Data Discharge Date/Time-TO BE ENTERED AT DEPARTURE: 10/19/25 08:40 HPI General Date/Time Provider Initiated Documentation: 10/19/25 08:15 . HPI Narrative: 30 year-old female presents to ED today by POV/ambulating with a chief complaint of L sided neck pain, states she's had a lump / rash developing with onset over the past few days- seen at PCP office who stated it could be hormonally related. Quality described as painful itchy spot on her L posterior/axillary neck with headaches, ear pain, no radiation to diffuse rash, fever, visual changes, facial pain, facial paralysis. Severity is described as moderate. Palliating factors include nothing specific attempted. Provoking factors include nothing specific. Patient not anticoagulated. Related Data Home Medications ?Medication ?Instructions ?Recorded ?Confirmed inhalational spacing device #1 ea 02/10/19 10/19/25 (Aerochamber MV spacer) inhalational spacing device 10/19/21 10/19/25 (Cheriseber Sonia C spacer) albuterol sulfate 90 mcg/actuation 2 inh inhalation DA ARIELLE PRN 12/23/24 10/19/25 aerosol inhaler ferrous gluconate 324 mg (37.5 mg 324 mg PO DAILY 12/2710/19/25 iron) tablet diclofenac sodium 1 % topical gel 4 g topical QID #100 grams 08/17/25 10/19/25 prednisone 20 mg tablet 40 mg (2 x 20 mg) PO DAILY 5 days 10/19/25 #10 tabs valacyclovir 1 gram tablet 1,000 mg PO TID 10 days #30 tabs 10/19/25 Previous Rx's ?Medication ?Instructions ?Recorded inhalational spacing device #1 ea 02/10/19 (Aerochamber MV spacer) diclofenac sodium 1 % topical gel 4 g topical QID #100 grams 08/17/25 prednisone 20 mg tablet 40 mg (2 x 20 mg) PO DAILY 5 days 10/19/25 #10 tabs valacyclovir 1 gram tablet 1,000 mg PO TID 10 days #30 tabs 10/19/25 Allergies Allergy/AdvReac Type Severity Reaction Status Date / Time morphine Allergy Severe Anaphylaxsi Verified 10/19/25 08:05 s sucralfate AdvReac Intermediate Constipation/Fecal Verified 10/19/25 08:05 impaction Bee Allergy Allergy Swelling Uncoded 10/19/25 08:05 General Stated Complaint: Nk/Back Pain PERCY: 3 Review of Systems All systems reviewed & are unremarkable except as noted in HPI and below Exam Narrative Exam Narrative: GENERAL APPEARANCE: Well-nourished, non-toxic, awake and alert, atraumatic, no acute distress. SKIN: Warm, pink, dry, left neck vesicular rash classic for shingles HEAD: Normocephalic, atraumatic, normal hair distribution for gender/age. EYES: Normal conjunctiva, no exudates on lids/lashes. ENT: Nares patent, no circumoral cyanosis, no facial swelling, no lesions to auricle of your ear canal, vision grossly normal, no facial paralysis NECK: Supple, trachea midline, painless cervical ROM. LUNGS/CHEST: Non-labored respirations, normal A/P diameter, symmetrical expansion, no chest wall deformity HEART (CV/PV): No peripheral edema, no JVD. ABDOMEN: Soft, non-distended, no guarding. MSK: Normal ROM, no swelling/deformity to bilateral UEs or LEs, moving all extremities without weakness, no cyanosis, spine midline without tenderness, normal curvature. NEURO: Mental Status AAOx4 - alert to person, place, time, events No facial droop, no forehead involvement. Motor: No focal weakness - strength 5/5 in bilateral UEs and LEs, proximal and distal, symmetric. Sensory: sensation intact to light touch globally. Gait normal: patient ambulated without ataxia into ED room. PSYCH: euthymic, cooperative, pleasant, appropriate speech Course Vital Signs Vital signs: Vital Signs Temperature 36.5 C 10/19/25 08:00 Pulse 58 L 10/19/25 08:00 Respiratory Rate 12 10/19/25 08:00 Blood Pressure 170/87 H 10/19/25 08:00 Pulse Oximetry 99 10/19/25 08:00 Temperature 36.5 C 10/19/25 08:00 Temperature Source Oral 10/19/25 08:00 Pulse 58 L 10/19/25 08:00 Respiratory Rate 12 10/19/25 08:00 Blood Pressure 170/87 H 10/19/25 08:00 Blood Pressure Position Sitting 10/19/25 08:00 Pulse Oximetry 99 10/19/25 08:00 Oxygen Delivery Method Room Air 10/19/25 08:00 Oxygen Flow Rate 0 10/19/25 08:00 Medical Decision Making This dictation utilizes [id number] dictation software and may contain unedited grammatical errors. 30 year-old female presents to ED today by POV/ambulating with a chief complaint of L sided neck pain, states she's had a lump / rash developing with onset over the past few days- seen at PCP office who stated it could be hormonally related. Quality described as painful itchy spot on her L posterior/axillary neck with headaches, ear pain, no radiation to diffuse rash, fever, visual changes, facial pain, facial paralysis. Severity is described as moderate. Palliating factors include nothing specific attempted. Provoking factors include nothing specific. Patients' medical history: noncontributory. Family and social history: noncontributory. Pertinent exam findings / vital signs include left neck vesicular rash classic for shingles, no vesicular lesions to ear or face, no facial paralysis. Differential / pathologies of concern include classic for shingles. Diagnostic studies of: -None Interventions of: -Started on Valtrex and prednisone. ED Course/Assessment/Plan: 30-year-old female presents with left neck rash, vesicular, classic for shingles, no facial paralysis or signs of Luis Clemens, no ear lesions, started on Valtrex and prednisone recommend Tylenol and ibuprofen, consider gabapentin if pain is not resolving or has lingering pain after infection resolves, strict return criteria for disseminated rash, facial paralysis, eye pain visual changes. Findings not consistent with [place] Clemens syndrome, facial paralysis, disseminated varicella. Disposition of Shingles. Patient verbalized understanding of the plan and return to ED criteria and engaged in shared decision making. Medical Records Medical records reviewed: Yes I reviewed the patient's medical records. [facility] All Active Problems (Updated 10/19/25 @ 08:22 by ELIECER Rothman) Shingles (Acute) Syncope (Chronic) Vaginal odor (Acute) Abnormal uterine bleeding (AUB) (Acute) Nausea and vomiting (Acute) Constipation (Acute) Diarrhea (Acute) Vomiting (Acute) Hidradenitis suppurativa (Acute) Hematemesis (Acute) Hematochezia (Acute) Unintentional weight loss (Acute) Microcytic hypochromic anemia (Acute) PCOS (polycystic ovarian syndrome) (Chronic) Dx'ed [facility]IST[facility]ER 01/2019 Metformin started Family history of early CAD (Chronic) Father Exercise-induced asthma (Chronic) Anxiety (Chronic) Depression (Chronic) h/o Wellbutrin use, h/o prozac use; no bipolar Medical History Attempted suicide Surgical History H/O oral surgery Hx of cholecystectomy (~08/2014) ~2013 Family History Father Heart attack 37yo High cholesterol Arthritis b/l hip replacement in early 30s Mother Hypertension Anxiety Depression Diabetes Irritable bowel syndrome Paternal Grandfather High cholesterol Maternal Grandfather Diabetes Maternal Aunt Breast cancer 2 great aunts Crohn's disease Brother Aortic stenosis 17yo Social History Smoking/Tobacco Use Status: Never Smoking risk assessment performed?: Yes Alcohol Intake: current Alcohol Intake frequency: holidays/special occasions only Drug use: Occasionally Substance use type: marijuana Adopted: No Foster care: No Household members: significant other Housing: apartment Communication Needs: None Education Level: college Details: 1 yr Do you need help understanding health information?: Never 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[employer] Sexually active: Yes Do you think of yourself as: straight/heterosexual What is your relationship status?: living with partner Panel score (0-1 are the most socially isolated patients): 1 Duration: 45-60 minutes/day Frequency: 3-4 times per week Special jonathon needs: No Seatbelt use: never Helmet use: No Working smoke detector in home: Yes Carbon monox detector in home: Yes Do you feel safe at home: Yes Do you feel safe in your relationship?: Yes Female Reproductive History Menstrual control method: none History History 0 Para 0 Hx # Term Pregnancies Multiple births Hx # Pregnancies Ectopic pregnancies AB induced Hx Number of Living Children AB spontaneous
[2025-10-19] MEDS: valACYclovir 500 MG TAB 1000 MG PO (08:31)
[2025-10-19] MEDS: predniSONE 20 MG TAB 60 MG PO (08:31)
== END 2025-10-19 08:40 | disposition home or self-care (01) ==
PROVIDERS: Emergency Provider Physician Assistant
DX: B02.9 Zoster without complications (principal)
CPT/HCPCS: 99283 ×2; J7512